=== PATIENT | female | born 1960 | race African-American/Black ===

== ENCOUNTER 2017-08-12 16:10 | Emergency (ER) | payer OTHER ==
--- OUTSIDE RECORDS SUMMARY | 2017-08-12 16:12 | XMS REPORT | Summary of Care ---
:1960 Author Encounter HQ Estherr_geovanna(KERI) [id number] Date(s): 05/20/14 - 05/20/14 [facility] Out[facility] - [place] [id number] [place] [address] [phone] Discharge Disposition: Home Physician Attending: José Jorge MD Vital Signs No data available for this section Problem List No data available for this section Allergies, Adverse Reactions, Alerts No data available for this section Medications No data available for this section Results No data available for this section Immunizations No data available for this section Procedures No data available for this section Social History No data available for this section Assessment and Plan No data available for this section
--- OUTSIDE RECORDS SUMMARY | 2017-08-12 16:12 | XMS REPORT | Continuity of Care Document ---
:1960 Author Organization Interface Problems Problem Status Onset Date Classification Date Comments Source Reported 724.2 - Active 03/06/2014 [facility] Medications Medication Details Route Status Patient Ordering Order Source Instructions Provider Date Allergies, Adverse Reactions, Alerts Substance Category Reaction Severity Reaction Status Date Comments Source type Reported Immunizations Immunization Date Given Site Status Last Updated Comments Source Results Order Name Results Value Reference Date Interpretation Comments Source Range Chest Chest PROCEDURE: CTA CHEST 05/17 - [facility] /2017 - Hospital Embolism Embolism CTA CTA Clinical Indication: Chest pain, shortness of breath, and elevated d-dimer today. Read by: Fran España MD Dictated Date/time: 05/17/17 09:02 Electronically Signed by: Fran España MD 05/17/17 09:20 FINAL REPORT Comparison: None. TECHNIQUE: CTA of the pulmonary arteries was performed following intravenous contrast administration. Multiplanar and 3-D MIP angiographic reconstructions are reviewed. IV CONTRAST: 100 mL Omnipaque 300 DLP: 666 mGy-cm FINDINGS: MEDIASTINUM: 1 cm short axis prevascular and precarinal lymph nodes present. Subcarinal fatty tissues are heterogeneous and thought to be related to additional lymph nodes possibly measuring up to 1.5 c m short axis. Multiple other subcentimeter short axis lymph nodes also seen including AP window, prevascular space, and right paratracheal area. No esophageal abnormality is seen. No tracheal mass identified. HEART: Mild to moderate cardiomegaly. No pericardial effusion. Coronary artery calcifications present. VASCULAR STRUCTURES and PULMONARY ARTERIES: Ascending thoracic aorta measures 3.4 cm diameter. Mild calcified plaque of thoracic aorta is seen. No flow-limiting stenosis or dissection flaps. No filling defects identified in the main pulmonary arteries or proximal segmental branches bilaterally. LUNGS AND PLEURA: Patchy groundglass opacities are seen in both upper lobes. Groundglass attenuation in both lower lobes also seen appearing greatest in the dependent portions with septal thickening. Mi nimal atelectasis or additional infiltrates in the middle lobe and lingula also seen. Trace layering bilateral pleural fluid versus dependent atelectasis. UPPER ABDOMEN: Limited survey of upper abdominal viscera is negative. MUSCULOSKELETAL: No suspicious osseous abnormality identified. IMPRESSION: 1. No CT evidence for acute pulmonary embolus or thoracic aortic dissection. 2. Patchy bilateral upper lobe groundglass opacities suspicious for bilateral pneumonia. 3. More prominent ground glass changes in both lower lobes with septal thickening could represent superimposed pulmonary edema versus additional infectious or inflammatory infiltrates. 4. Few prominent mediastinal lymph nodes could be reactive in nature. SL: [id number] Chest Chest EXAM: XR CHEST SINGLE VIEW 05/17 - [facility] 1view DX 1view DX /2017 - Hospital HISTORY: 57 years year-old Female with chest pain, shortness of breath, hypertension Read by: Polo Benitez MD Dictated Date/time: 05/17/17 08:18 Electronically Signed by: Polo Benitez MD 05/17/17 08:21 FINAL REPORT TECHNIQUE: A single AP view of the chest was obtained. COMPARISON: None FINDINGS: The cardiomediastinal silhouette is mildly prominent. Aortic calcifications present. Haziness in the bilateral lower lungs. No definite pneumothorax is seen. No acute osseous abnormality is evident. IMPRESSION: 1. Haziness in the lower lungs likely related to overlying soft tissues. SL: [id number] Spine Spine EXAM: MRI of the lumbar spine without contrast. 05/20 [facility] lumbar wo lumbar - Clear contrast contrast [facility] CLINICAL HISTORY: 724.2 LUMBAGO Read by: Ozzy Rogers MD Dictated Date/time: 05/20/14 12:32 Electronically Signed by: Ozzy Rogers MD 05/20/14 12:57 FINAL REPORT COMPARISON: None. TECHNIQUE: Utilizing a high field MRI, sagittal T1 and T2, sagittal T2 FS, and axial T1 and T2 sequences were obtained. FINDINGS: There is no lumbar spine fracture or subluxation. The conus and cauda equina nerve roots are normal. The conus terminates at the upper L2 level. Findings by level: T12-L1: The intervertebral disc is normal. The facet joints are normal. No central canal or neural foraminal stenosis. L1-L2: The intervertebral disc is normal. There is minor bilateral facet arthrosis. No central canal or neural foraminal stenosis. L2-L3: There is mild disc desiccation, marginal osteophytosis, and a small Schmorl's node. There is a broad-based left neural foraminal disc protrusion measuring 3 mm AP, which slightly touches the left L2 exiting nerve root. There is minor bilateral facet arthrosis with a trace right facet joint effusion. No central canal or neural foraminal stenosis. L3-L4: There is mild disc desiccation, marginal osteophytosis, and a small Schmorl's node. There is mild bilateral facet arthrosis. No central canal or neural foraminal stenosis. L4-L5: There is mild disc desiccation, marginal osteophytosis, and a small Schmorl's node. There is mild annular bulging measuring up to 3 mm in the neural foraminal regions bilaterally. There is s evere bilateral facet arthrosis. No central canal or neural foraminal stenosis. L5-S1: There is mild disc narrowing, desiccation, marginal osteophytosis. There is a broad-based posterior central to left paracentral disc protrusion measuring 2.5 mm AP, which slightly touches the lef t S1 nerve root sleeve. There is moderate bilateral facet arthrosis. No central canal or neural foraminal stenosis. IMPRESSION: 1. At L2-L3, there is a broad-based left neural foraminal disc protrusion measuring 3 mm AP, which slightly touches the left L2 exiting nerve root. 2. At L4-L5, there is mild annular bulging measuring up to 3 mm in the neural foraminal regions bilaterally. There is severe bilateral facet arthrosis. 3. At L5-S1, there is a broad-based posterior central to left paracentral disc protrusion measuring 2.5 mm AP, which slightly touches the left S1 nerve root sleeve. 4. No central canal or neural foraminal stenosis. Vital Signs Vital Sign Value Date Comments Source Encounters Location Location Encounter Encounter Reason Attending ADM DC Status Source Details Type Number For Provider Date Date Visit [facility] Outpt Diag [id number] José 05/20 05/21 [facility] [place] [facility]2014 [facility] [id number] [place] 08/12 [facility] [id number] [place] 09/23 [facility]2017 [facility] Procedures Procedure Code Date Perfomer Comments Source
[2017-08-12 17:10] LABS: BUN Blood Urea Nitrogen 22 mg/dL (6-20); Bicarbonate 27 mEq/L (21-31); Glucose Level 127 mg/dL (65-120); Potassium 3.5 mEq/L (3.6-5.0); Sodium Level 136 mEq/L (135-145)
[2017-08-12 17:12] LABS: Absolute Lymphocytes (CBC) 2.3 K/uL (0.7-4.9); Absolute Monocytes 0.5 K/uL (0.1-1.3); Absolute Neutrophil 3.2 K/uL (1.8-8.0); Basophils % 0.8 % (0-1.3); Eosinophils % 4.2 % (0-4.4); Hematocrit 35.3 % (36.0-45.0); Lymphocytes % 36.9 % (15.3-44.8); MCH 28.6 pg (27.0-35.0); MCV 87.5 fL (80-100); MPV 7.8 fL (7.6-11.3); Monocytes % 7.3 % (3.3-12.3); RBC Red Blood Cell Count 4.03 M/uL (3.86-4.86)
--- NOTE | 2017-08-12 18:12 | RAD REPORT ---
EXAM DESCRIPTION: CT - Abdomen Pelvis W Contrast - 08/12/2017 5:41 pm CLINICAL HISTORY: Abdominal pain lower abdominal pain and vaginal bleeding for 1 week. Nausea COMPARISON: February 2017 TECHNIQUE: Computed axial tomography of the abdomen pelvis was obtained. 100 cc Isovue-300 was admin istered intravenously. Oral contrast was not requested which limits evaluation of bowel. All CT scans are performed using dose optimization technique as appropriate and may include automated exposure control or mA/KV adjustment according to patient size. FINDINGS: A small cyst is present within liver Spleen, pancreas, adrenal and right kidney appear unremarkable. Small left renal cyst is seen. There is no evidence of diverticulitis. The appendix is normal. A hysterectomy has been performed. A tiny umbilical hernia is present. IMPRESSION: No acute abnormality is displayed.
[2017-08-12] MEDS ORDERED: DIPHENHYDRAMINE 50 MG/ML VIAL ONE (18:40)
[2017-08-12] MEDS ORDERED: METOCLOPRAMIDE 10 MG/2mL INJ ONE (18:40)
[2017-08-12 19:26] LABS: Urine Blood 2+ (NEG); Urine Glucose NEGATIVE (NEG); Urine Protein NEGATIVE (NEG)
[2017-08-12] MEDS ORDERED: ACETAMINOPHEN 500 MG TAB ONE (19:50)
[2017-08-12] MEDS ORDERED: AZITHROMYCIN 250 MG TAB ONE (20:58)
[2017-08-12] MEDS ORDERED: CEFTRIAXONE/SWI 1gm 1 GM/10 ML SYR ONE (20:59)
--- NOTE | 2017-08-12 21:58 | EDPHYS ---
Physician Documentation [facility] Name: Dori Cotter Age: 57 yrs Sex: Female : 1960 Arrival Date: 08/12/2017 Time: 16:16 Bed 7 Private MD: Jeet Emanuel T ED Physician Drew Hou HPI: 08/12 19:31 This 57 yrs old Black Female presents to ER via Ambulatory with complaints of Abdominal jr8 Pain, Vaginal Bleeding. 19:31 The patient presents with abdominal pain in the lower abdomen. Onset: The jr8 symptoms/episode began/occurred acutely, 1 week(s) ago. The symptoms do not radiate. Associated signs and symptoms: Pertinent positives: vaginal bleeding. The symptoms are described as sharp. Modifying factors: The symptoms are alleviated by nothing, the symptoms are aggravated by nothing. Severity of pain: At its worst the pain was moderate in the emergency department the pain has improved mildly. The patient has not experienced similar symptoms in the past. The patient has not recently seen a physician. Historical: - Allergies: 16:22 Bactrim; ph - Home Meds: 16:22 Protonix 40 mg Oral TbEC 1 tab once daily [Active]; aspirin 81 mg Oral TbEC 1 tab once ph daily [Active]; hydrochlorothiazide Oral [Active]; losartan 50 mg Oral tab 1 tab once daily [Active]; Norvasc 10 mg oral tab [Active]; Coreg 25 mg oral tab 1 tab 2 times per day [Active]; - PMHx: 16:22 Diabetes - NIDDM; High Cholesterol; Hypertension; ph - PSHx: 16:22 Hysterectomy; Knee surgery; ph - Immunization history:: Adult Immunizations unknown. - Social history:: Smoking status: Patient/guardian denies using tobacco. - Ebola Screening: : No symptoms or risks identified at this time. ROS: 19:31 Eyes: Negative for injury, pain, redness, and discharge, ENT: Negative for injury, jr8 pain, and discharge, Neck: Negative for injury, pain, and swelling, Cardiovascular: Negative for chest pain, palpitations, and edema, Respiratory: Negative for shortness of breath, cough, wheezing, and pleuritic chest pain, Back: Negative for injury and pain, MS/Extremity: Negative for injury and deformity, Skin: Negative for injury, rash, and discoloration, Neuro: Negative for headache, weakness, numbness, tingling, and seizure. 19:31 Abdomen/GI: Positive for abdominal pain, Negative for nausea, vomiting, and diarrhea, abdominal cramps, abdominal distension, anorexia, dysphagia, hematemesis, black/tarry stool, rectal pain, rectal bleeding, bowel incontinence, flatulence. 19:31 : Positive for vaginal bleeding, Negative for urinary symptoms, vaginal discharge, vaginal itching. Exam: 19:31 Eyes: Pupils equal round and reactive to light, extra-ocular motions intact. Lids and jr8 lashes normal. Conjunctiva and sclera are non-icteric and not injected. Cornea within normal limits. Periorbital areas with no swelling, redness, or edema. ENT: Nares patent. No nasal discharge, no septal abnormalities noted. Tympanic membranes are normal and external auditory canals are clear. Oropharynx with no redness, swelling, or masses, exudates, or evidence of obstruction, uvula midline. Mucous membranes moist. Neck: Trachea midline, no thyromegaly or masses palpated, and no cervical lymphadenopathy. Supple, full range of motion without nuchal rigidity, or vertebral point tenderness. No Meningismus. Cardiovascular: Regular rate and rhythm with a normal S1 and S2. No gallops, murmurs, or rubs. Normal PMI, no JVD. No pulse deficits. Respiratory: Lungs have equal breath sounds bilaterally, clear to auscultation and percussion. No rales, rhonchi or wheezes noted. No increased work of breathing, no retractions or nasal flaring. Back: No spinal tenderness. No costovertebral tenderness. Full range of motion. Skin: Warm, dry with normal turgor. Normal color with no rashes, no lesions, and no evidence of cellulitis. MS/ Extremity: Pulses equal, no cyanosis. Neurovascular intact. Full, normal range of motion. Neuro: Awake and alert, GCS 15, oriented to person, place, time, and situation. Cranial nerves II-XII grossly intact. Motor strength 5/5 in all extremities. Sensory grossly intact. Cerebellar exam normal. Normal gait. 19:31 Abdomen/GI: Inspection: obese Bowel sounds: active, all quadrants, Palpation: soft, in all quadrants, mild abdominal tenderness, in the right lower quadrant and left lower quadrant, mass, is not appreciated, rebound tenderness, is not appreciated, voluntary guarding, is not appreciated, involuntary guarding, is not appreciated, no appreciated organomegaly, Indicators: McBurney's point is not tender, Sewell's sign is negative, Rovsing's sign is negative, Liver: no appreciated palpable abnormalities, tenderness, is not appreciated. 21:58 : Pelvic Exam: External exam: is normal, Speculum exam: scant bleeding, discharge, jr8 white, yellow, a female food production associate was present for the exam, Bladder: is normal. Vital Signs: 16:22 BP 112 / 70; Pulse 72; Resp 18; Temp 97.3; Pulse Ox 100% on R/A; Weight 117.93 kg; ph Height 5 ft. 2 in. (157.48 cm); Pain 5/10; 19:30 BP 120 / 68; Pulse 70; Resp 18; Pulse Ox 98% on R/A; Pain 0/10; ea 20:00 BP 122 / 72; Pulse 72; Resp 18; Pulse Ox 99% on R/A; ea 22:40 BP 128 / 70; Pulse 70; Resp 18; Temp 98(O); Pulse Ox 99% ; Pain 0/10; ea 16:22 Body Mass Index 47.55 (117.93 kg, 157.48 cm) ph MDM: 16:35 Patient medically screened. jr8 21:56 Data reviewed: vital signs, nurses notes, lab test result(s), radiologic studies, CT jr8 scan, and as a result, I will discharge patient. Data interpreted: Pulse oximetry: on room air is 100 %. Interpretation: normal. Counseling: I had a detailed discussion with the patient and/or guardian regarding: the historical points, exam findings, and any diagnostic results supporting the discharge/admit diagnosis, lab results, radiology results, the need for outpatient follow up, an OB/Gyne specialist, to return to the emergency department if symptoms worsen or persist or if there are any questions or concerns that arise at home. 08/12 16:35 Order name: CBC with Diff; Complete Time: 17:27 jr8 08/12 16:35 Order name: Basic Metabolic Panel; Complete Time: 17:27 8 08/12 18:41 Order name: Urine Dipstick--Ancillary (enter results); Complete Time: 19:26 08/12 20:21 Order name: Wet Prep; Complete Time: 21:55 [facility] 08/12 20:21 Order name: GC (GONORR/CHLAMYDIA) Probe [facility] 08/12 16:35 Order name: IV; Complete Time: 17:28 [facility] 08/12 17:08 Order name: CT Abd/Pelvis - W/Contrast; Complete Time: 18:25 [facility] 08/12 19:28 Order name: Pelvic Exam Setup; Complete Time: 20:54 [facility] Administered Medications: 18:42 Drug: Benadryl 25 mg Route: IVP; Infused Over: 2 mins; Site: left antecubital; sv 18:48 Follow up: Response: No adverse reaction sv 18:44 Drug: Reglan 10 mg Route: IVP; Infused Over: 3 mins; Site: left antecubital; sv 18:48 Follow up: Response: No adverse reaction sv 21:02 Drug: Rocephin 1 grams Route: IV; Rate: calculated rate; Site: right antecubital; ea 22:11 Follow up: Response: No adverse reaction; IV Status: Completed infusion ea 21:03 Drug: Zithromax 1 grams Route: PO; ea 22:11 Follow up: Response: No adverse reaction ea 22:28 Drug: Flagyl 2 grams Route: PO; ea 22:30 Follow up: Response: Medication administered at discharge. ea Disposition: 08/12/17 21:57 Discharged to Home. Impression: Trichomoniasis. - Condition is Stable. - Discharge Instructions: Trichomoniasis. - Prescriptions for Doxycycline Hyclate 100 mg Oral Tablet - take 1 tablet by ORAL route every 12 hours; 20 tablet. - Medication Reconciliation Form, Thank You Letter, Antibiotic Education, Prescription Opioid Use form. - Follow up: Private Physician; When: 2 - 3 days; Reason: Recheck today's complaints, Continuance of care, Re-evaluation by your physician. - Problem is new. - Symptoms have improved. Addendum: 08/17/2017 15:26 Co-signature as Attending Physician, Drew Hou MD I agree with the assessment and k dr plan of care. Signatures: Dispatcher [employer] EDIlana Gregory RN RN sv Rittger, Kevin, MD MD kdr Roszak, Josh, PA PA jr8 Elissa Jasso RN RN Crook, Kenya, RN RN ea Corrections: (The following items were deleted from the chart) 08/12 16:53 16:35 Transvaginal Study (Probe)+[email or web address] ordered. [facility] EDMS 22:52 21:57 08/12/2017 21:57 Discharged to Home. Impression: Trichomoniasis. Condition is ea Stable. Forms are Medication Reconciliation Form, Thank You Letter, Antibiotic Education, Prescription Opioid Use. Follow up: Private Physician; When: 2 - 3 days; Reason: Recheck today's complaints, Continuance of care, Re-evaluation by your physician. Problem is new. Symptoms have improved. jr8
--- NOTE | 2017-08-12 21:58 | ER ---
Nurse's Notes [facility] Name: Dori Cotter Age: 57 yrs Sex: Female : 1960 Arrival Date: 08/12/2017 Time: 16:16 Bed 7 Private MD: Jeet Emanuel T Diagnosis: Trichomoniasis Presentation: 08/12 16:18 Presenting complaint: Patient states: " I've been having lower abdominal pain and ph vaginal bleeding for about a week. I haven't had a regular period since the s." Pt reports dilcia LQ and suprapubic pain, also reports nausea, denies V/D or fever. Transition of care: patient was not received from another setting of care. Onset of symptoms was August 12, 2017. Risk Assessment: Do you want to hurt yourself or someone else? Patient reports no desire to harm self or others. Initial Sepsis Screen: Does the patient meet any 2 criteria? No. Patient's initial sepsis screen is negative. Does the patient have a suspected source of infection? No. Patient's initial sepsis screen is negative. Care prior to arrival: None. 16:18 Method Of Arrival: Ambulatory ph 16:18 Acuity: RANDI 3 ph Historical: - Allergies: 16:22 Bactrim; ph - Home Meds: 16:22 Protonix 40 mg Oral TbEC 1 tab once daily [Active]; aspirin 81 mg Oral TbEC 1 tab once ph daily [Active]; hydrochlorothiazide Oral [Active]; losartan 50 mg Oral tab 1 tab once daily [Active]; Norvasc 10 mg oral tab [Active]; Coreg 25 mg oral tab 1 tab 2 times per day [Active]; - PMHx: 16:22 Diabetes - NIDDM; High Cholesterol; Hypertension; ph - PSHx: 16:22 Hysterectomy; Knee surgery; ph - Immunization history:: Adult Immunizations unknown. - Social history:: Smoking status: Patient/guardian denies using tobacco. - Ebola Screening: : No symptoms or risks identified at this time. Screenin:59 Abuse screen: Denies threats or abuse. Denies injuries from another. Nutritional sv screening: No deficits noted. Tuberculosis screening: No symptoms or risk factors identified. Fall Risk None identified. Assessment: 18:30 General: Appears uncomfortable, obese, Behavior is calm, cooperative, appropriate for sv age. Pain: Complains of pain in face Pain currently is 5 out of 10 on a pain scale. Quality of pain is described as throbbing, Is continuous. Neuro: Level of Consciousness is awake, alert, obeys commands, Oriented to person, place, time, situation, Moves all extremities. Full function. Respiratory: Respiratory effort is even, unlabored, Respiratory pattern is regular, symmetrical. GI: Abdomen is obese. : Reports vaginal bleeding that is spotty, Pt reports a light flow earlier today. Derm: Skin is normal. Musculoskeletal: No signs and/or symptoms reported regarding the musculoskeletal system. 19:30 General: Appears uncomfortable, Behavior is calm, cooperative, appropriate for age. ea Pain: Complains of pain in left lower quadrant and right lower quadrant Pain currently is 7 out of 10 on a pain scale. Quality of pain is described as throbbing. Neuro: Level of Consciousness is awake, alert, obeys commands, Oriented to person, place, time, situation. Respiratory: Airway is patent Respiratory effort is even, unlabored, Respiratory pattern is regular, symmetrical. GI: Abdomen is non-distended, obese, Bowel sounds present X 4 quads. : Reports vaginal bleeding that is. Derm: Skin is dry, Skin is normal, Skin temperature is warm. Musculoskeletal: No signs and/or symptoms reported regarding the musculoskeletal system. 20:30 Reassessment: Patient and/or family updated on plan of care and expected duration. Pain ea level reassessed. Patient is alert, oriented x 3, equal unlabored respirations, skin warm/dry/pink. 21:55 Reassessment: Patient and/or family updated on plan of care and expected duration. Pain ea level reassessed. Patient is alert, oriented x 3, equal unlabored respirations, skin warm/dry/pink. 22:39 Reassessment: Patient and/or family updated on plan of care and expected duration. Pain ea level reassessed. Patient is alert, oriented x 3, equal unlabored respirations, skin warm/dry/pink. Discharge instructions given to patient, verbalized the understanding of instructions. Vital Signs: 16:22 BP 112 / 70; Pulse 72; Resp 18; Temp 97.3; Pulse Ox 100% on R/A; Weight 117.93 kg; ph Height 5 ft. 2 in. (157.48 cm); Pain 5/10; 19:30 BP 120 / 68; Pulse 70; Resp 18; Pulse Ox 98% on R/A; Pain 0/10; ea 20:00 BP 122 / 72; Pulse 72; Resp 18; Pulse Ox 99% on R/A; ea 22:40 BP 128 / 70; Pulse 70; Resp 18; Temp 98(O); Pulse Ox 99% ; Pain 0/10; ea 16:22 Body Mass Index 47.55 (117.93 kg, 157.48 cm) ph ED Course: 16:16 Patient arrived in ED. mr 16:16 Jeet Emanuel MD is Private Physician. mr 16:20 Triage completed. ph 16:23 Arm band placed on. ph 16:34 [facility] jr[facility] 16:35 Drew Hou MD is Attending Physician. jr8 16:45 Initial lab(s) drawn, by ED staff, sent to lab. Inserted saline lock: 22 gauge in right sv antecubital area, using aseptic technique. ,using aseptic technique. done by [facility] Blood collected. 17:10 Radiology exam delayed due to lab results not completed at this time. (BUN/Creatinine). sw 17:27 Ilana Hernandes, RN is Primary Nurse. sv 17:[address] via wheelchair. mw3 17:40 CT completed. Patient tolerated procedure well. mw3 17:41 CT Abd/Pelvis - W/Contrast In Process Unspecified. EDMS 17:59 Patient has correct armband on for positive identification. Bed in low position. Call sv light in reach. 19:08 Primary Nurse role handed off by Ilana Hernandes RN sv 20:18 Kenya Crook, PATRICK is Primary Nurse. ea 22:30 No provider procedures requiring assistance completed. ea 22:43 IV discontinued, intact, bleeding controlled, No redness/swelling at site. Pressure ea dressing applied. Administered Medications: 18:42 Drug: Benadryl 25 mg Route: IVP; Infused Over: 2 mins; Site: left antecubital; sv 18:48 Follow up: Response: No adverse reaction sv 18:44 Drug: Reglan 10 mg Route: IVP; Infused Over: 3 mins; Site: left antecubital; sv 18:48 Follow up: Response: No adverse reaction sv 21:02 Drug: Rocephin 1 grams Route: IV; Rate: calculated rate; Site: right antecubital; ea 22:11 Follow up: Response: No adverse reaction; IV Status: Completed infusion ea 21:03 Drug: Zithromax 1 grams Route: PO; ea 22:11 Follow up: Response: No adverse reaction ea 22:28 Drug: Flagyl 2 grams Route: PO; ea 22:30 Follow up: Response: Medication administered at discharge. ea Outcome: 21:57 Discharge ordered by MD. goodrich 22:42 Discharged to home via wheelchair, with family. ea 22:42 Condition: improved 22:42 Discharge instructions given to patient, Instructed on discharge instructions, follow up and referral plans. medication usage, Demonstrated understanding of instructions, follow-up care, medications, Prescriptions given X 1. 22:52 Patient left the ED. ea Signatures: Dispatcher [employer] EDIlana Gregory, Jenae Lyon RN mr Suly, Michael, PA Elissa Means RN RN ph Warren, Shannon sw Antunez, Elena, RN RN ea Willis, Michelle 3
[2017-08-12] MEDS ORDERED: metroNIDAZOLE 500 MG TABLET ONE (22:27)
[2017-08-12 23:48] VITALS: BP 112/70; TEMP 97.3; O2SAT 100
[2017-08-16 15:37] LABS: C.trachomatis RNA,TMA Not Detected (Not Detected)
== END 2017-08-12 22:52 | disposition home or self-care (01) ==
LOC: ER 16:10
DX: A59.9 Trichomoniasis, unspecified (principal); I10 Essential (primary) hypertension; E11.9 Type 2 diabetes mellitus without complications; Z79.82 Long term (current) use of aspirin; Z88.1 Allergy status to other antibiotic agents
CPT/HCPCS: 36415; 74177; 80048; 81003; 85025; 87210; 87490; 87590; 96365; 96375; 99284; J0696; J2765; Q9967

== ENCOUNTER 2018-04-11 13:23 | Emergency (ER) | payer OTHER ==
--- OUTSIDE RECORDS SUMMARY | 2018-04-11 13:27 | XMS REPORT | Continuity of Care Document ---
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 Hypertensive 08/26/2017 [facility] emergency [facility] Hyperlipidemia, 08/26/2017 [facility] Body mass index 08/26/2017 [facility] [id number] , adult Hospital Back pain Active Problem 08/26/2017 [facility] HTN - Hypertension Active Problem 08/26/2017 [facility] Hyperlipidemia Active Problem 08/26/2017 [facility] Morbid obesity Active Problem 08/26/2017 [facility] Neck pain Active Problem 08/26/2017 [facility] Paresthesias Active Problem 08/26/2017 [facility] Medications Medication Details Route Status Patient Ordering Order Source Instructions Provider Date spironolactone 25 25 mg=1 tab, No Longer [facility] mg oral tablet PO, Daily, # Active 2018 Hospital 30 tab, 1 Refill(s), Pharmacy: [facility]/pharmacy #[id number] potassium chloride 20 mEq=1 tab, No Longer [facility] 20 mEq oral tablet, PO, Daily, Active 2018 [facility] extended release Take while you are on Hydrochlorothi azide, # 30 tab, 1 Refill(s), Pharmacy: [facility]/pharmacy #[id number] Hydrochlorothiazide 25 mg=1 tab, Active [facility] 25 MG Oral Tablet PO, Daily, # 2018 Hospital 30 tab, 1 Refill(s), Pharmacy: [facility]acy #[id number] Famotidine 20 MG 20 mg=1 tab, No Longer [facility] Oral Tablet PO, BID, # 60 Active [facility] [Pepcid] tab, 0 Refill(s), Pharmacy: [facility]/pharmacy #[id number] doxycycline hyclate 100 mg=1 cap, No Longer [facility] 100 MG Oral Capsule PO, [id number], # Active 2018 Hospital 10 caplet, 0 Refill(s), Pharmacy: [facility]/pharmacy #[id number] losartan 100 mg 100 mg=1 tab, Active [facility] oral tablet PO, Daily, # 2018 Hospital 30 tab, 1 Refill(s), [id number] carvedilol 25 mg 25 mg=1 tab, Active [facility] oral tablet PO, BID, # 60 2018 Hospital tab, 1 Refill(s), Pharmacy: [facility]/pharmacy #[id number] atorvastatin 10 mg 20 mg=2 tab, Active [facility] oral tablet PO, Bedtime, # 2018 Hospital 30 tab, 1 Refill(s), Pharmacy: [facility]/pharmacy #[id number] amLODIPine 10 mg 10 mg=1 tab, Active [facility] oral tablet PO, Daily, # 2018 Hospital 30 tab, 1 Refill(s), [id number] Coreg 25 mg, 1 tab, No Longer [facility] Route: PO, Active 2017 [facility] Drug form: TAB, BID, Dosing Weight 124.545, kg, Start date: 05/19/17 17:00:00 CDT, Duration: 30 day, Stop date: 06/18/17 9:00:00 CDTNotes: Give with food. (Same As: Coreg) Hydrochlorothiazide 25 mg, 1 tab, No Longer [facility] Route: PO, Active 2017 Hospital Drug form: TAB, Daily, Dosing Weight 124.545, kg, Start date: 05/19/17 9:00:00 CDT, Duration: 30 day, Stop date: 06/17/17 9:00:00 CDTNotes: (Same as: Hydrodiuril) With food. Aldactone 25 mg, 1 tab, No Longer [facility] Route: PO, Active 2017 Hospital Drug form: TAB, Daily, Dosing Weight 124.545, kg, Start date: 05/19/17 9:00:00 CDT, Duration: 30 day, Stop date: 06/17/17 9:00:00 CDTNotes: (Same As: Aldactone) Norvasc 10 mg, 1 tab, No Longer [facility] Route: PO, Active [facility] Drug form: TAB, Daily, Dosing Weight 124.545, kg, Start date: 05/19/17 9:00:00 CDT, Duration: 30 day, Stop date: 06/17/17 9:00:00 CDTNotes: (Same as: Norvasc) Potassium Chloride 20 mEq, 1 tab, No Longer [facility] Route: PO, Active [address] [place] [address] Drug form: ERTAB, Daily, Dosing Weight 124.545, kg, Start date: 05/19/17 9:00:00 CDT, Duration: 30 day, Stop date: 06/17/17 9:00:00 CDTNotes: (Same as: K-Dur 20) "Do Not Crush" With food and full glass of water Coreg 12.5 mg, 1 No Longer [facility] tab, Route: Active [address] [place] [address] PO, Drug form: TAB, BID, Dosing Weight 124.545, kg, Start date: 05/18/17 17:00:00 CDT, Duration: 30 day, Stop date: 06/17/17 9:00:00 CDTNotes: Give with food. (Same As: Coreg) Potassium Chloride 20 mEq, Route: Inactive [facility] PO, Drug form: [address] [place] [address] ERTAB, BID, Dosing Weight 124.545, kg, Start date: 05/18/17 17:00:00 CDT, Duration: 30 day, Stop date: 06/17/17 9:00:00 CDT sodium phosphate 15 mmol, 5 mL, No Longer [facility] Route: IVPB, Active [facility] PRN, Dosing Weight 124.545, kg, PRN Abnormal Lab Result, For NON-ICU Patients Only., Start date: 05/18/17 15:07:00 CDT, Duration: 30 day, Stop date: 06/17/17 15:06:00 CDT potassium phosphate 30 mmol, 10 No Longer [facility] mL, Route: Active [facility] IVPB, PRN, Dosing Weight 124.545, kg, PRN Abnormal Lab Result, For NON-ICU Patients Only., Start date: 05/18/17 15:07:00 CDT, Duration: 30 day, Stop date: 06/17/17 15:06:00 CDTNotes: (Same as: K Phosphate.) 1 mMol phoshate has 1.47 mEq potassium Infuse over 4 hours Magnesium Sulfate 1 gm, 100 mL, No Longer [facility] Route: IVPB, Active 2017 [facility] Drug form: INJ, PRN, Dosing Weight 124.545, kg, PRN Abnormal Lab Result, For NON-ICU Patients Only., Start date: 05/18/17 15:07:00 CDT, Duration: 30 day, Stop date: 06/17/17 15:06:00 CDTNotes: WASTE: F/P - Sink; E - Municipal Trash Bin Potassium Chloride 20 mEq, 1 tab, No Longer [facility] Route: PO, Active 2017 [facility] Drug form: ERTAB, PRN, Dosing Weight 124.545, kg, PRN Abnormal Lab Result, For NON-ICU Patients Only, Start date: 05/18/17 15:07:00 CDT, Duration: 30 day, Stop date: 06/17/17 15:06:00 CDTNotes: (Same as: K-Dur 20) "Do Not Crush" With food and full glass of water potassium 2 pkt, Route: No Longer [facility] phosphate-sodium PO, Drug Form: Active 2017 [facility] phosphate 250 PDR/REC, mg-280 mg-160 mg Dosing Weight oral powder for 124.545, kg, reconstitution PRN, PRN Abnormal Lab Result, For NON-ICU Patients Only, Start date: 05/18/17 15:07:00 CDT, Duration: 30 day, Stop date: 06/17/17 15:06:00 CDTNotes: (Same as: Phos-NaK) Each 1.5 gm pkt has 250mg phosphorous. Mix w/2.5oz water and stir. Calcium Gluconate 3 gm, 30 mL, No Longer [facility] Route: IVPB, Active 2017 [facility] Drug form: INJ, PRN, Dosing Weight 124.545, kg, PRN Abnormal Lab Result, For NON-ICU Patients Only., Start date: 05/18/17 15:07:00 CDT, Duration: 30 day, Stop date: 06/17/17 15:06:00 CDTNotes: WASTE: F/P - Sink; E - [employer] Trash Bin Magnesium Oxide 800 mg, 2 tab, No Longer [facility] Route: PO, Active 2017 [facility] Drug form: TAB, PRN, Dosing Weight 124.545, kg, PRN Abnormal Lab Result, For NON-ICU Patients Only., Start date: 05/18/17 15:07:00 CDT, Duration: 30 day, Stop date: 06/17/17 15:06:00 CDTNotes: (Same as: Mag-Ox 400) Magnesium oxide [id number] elemental magnesium Dose=____mg magnesium oxide (___mg elemental magnesium) Rocephin 1 gm, Route: No Longer [facility] IV, [id number], Active 2017 [facility] Dosing Weight 124.545, kg, Start date: 05/18/17 11:00:00 CDT, Duration: 30 day, Stop date: 06/16/17 11:00:00 CDT, ABX Indication: Other (specify in Comments)Notes : (Same As: Rocephin). Use with 100 mL NS and infuse over 30 min MEDICATION WASTE Product Size: 1000 mg Product Wasted: _0__ mg Clonidine 0.1 mg, 1 tab, No Longer [facility] Hydrochloride 0.1 Route: PO, Active 2017 Hospital MG Oral Tablet Drug form: TAB, BID, Dosing Weight 124.545, kg, PRN Hypertension, Start date: 05/18/17 10:47:00 CDT, Duration: 30 day, Stop date: 06/17/17 10:46:00 CDTNotes: (Same As: Catapres) amLODIPine 5 mg, 1 tab, Inactive [facility] Route: PO, 2017 Hospital Drug form: TAB, ONCE, Start date: 05/18/17 10:05:00 CDT, Stop date: 05/18/17 10:05:00 CDTNotes: (Same as: Norvasc) multivitamin 1 tab, Route: No Longer [facility] PO, Drug Form: Active 2018 Hospital TAB, Dosing Weight 124.545, kg, Daily, Start date: 05/18/17 9:00:00 CDT, Duration: 30 day, Stop date: 06/16/17 9:00:00 CDTNotes: (Same as:Thera) WASTE: F/P - Black; E - Municipal Trash Bin Take with food. Losartan 100 mg, 1 tab, No Longer [facility] Route: PO, Active 2018 Hospital Drug form: TAB, Daily, Dosing Weight 124.545, kg, Start date: 05/18/17 9:00:00 CDT, Stop date: 06/16/17 9:00:00 CDTNotes: (Same as: Cozaar) Glucosamine 1,500 mg, No Longer [facility] Route: PO, Active 2018 [facility] Daily, Dosing Weight 124.545, kg, Start date: 05/18/17 9:00:00 CDT, Duration: 30 day, Stop date: 06/16/17 9:00:00 CDT Norvasc 5 mg, 1 tab, Inactive [facility] Route: PO, 2018 Hospital Drug form: TAB, Daily, Dosing Weight 124.545, kg, Start date: 05/18/17 9:00:00 CDT, Duration: 30 day, Stop date: 06/16/17 9:00:00 CDTNotes: (Same as: Norvasc) Doxycycline 100 mg, 1 cap, No Longer [facility] Route: PO, Active [address] [place] [address] Drug form: CAP, [id number], Dosing Weight 124.545, kg, Start date: 05/17/17 23:00:00 CDT, Duration: 7 day, Stop date: 05/24/17 11:00:00 CDTNotes: (Same as: Vibramycin) No milk/antacids/ iron. Coreg 6.25 mg, 1 No Longer [facility] tab, Route: Active 2018 Hospital PO, Drug form: TAB, BID, Dosing Weight 124.545, kg, Start date: 05/17/17 21:00:00 CDT, Stop date: 06/16/17 9:00:00 CDTNotes: Give with food. (Same As: Coreg) Saline Flush 0.9% 10 ml, Route: No Longer [facility] IVP, Drug Active 2017 Hospital Form: INJ, Dosing Weight 124.545, kg, Q12H, Start date: 05/17/17 21:00:00 CDT, Duration: 30 day, Stop date: 06/16/17 9:00:00 CDTNotes: (Same as: BD Posiflush) atorvastatin 10 mg, 1 tab, No Longer [facility] Route: PO, Active 2018 Hospital Drug form: TAB, Bedtime, Dosing Weight 124.545, kg, Start date: 05/17/17 21:00:00 CDT, Duration: 30 day, Stop date: 06/15/17 21:00:00 CDTNotes: (Same As: Lipitor) Doxycycline 100 mg, Route: Inactive [facility] IVPB, BID, 2018 Hospital Dosing Weight 124.545, kg, Start date: 05/17/17 21:00:00 CDT, Duration: 30 day, Stop date: 06/16/17 9:00:00 CDTNotes: (Same as: Vibramycin) Saline Flush 0.9% 10 ml, Route: No Longer [facility] IVP, Drug Active 2017 Hospital Form: INJ, Dosing Weight 124.545, kg, PRN, PRN Line Flush, Start date: 05/17/17 18:50:00 CDT, Duration: 30 day, Stop date: 06/16/17 18:49:00 CDTNotes: (Same as: BD Posiflush) Nystatin 100 UNT/MG 1 appl, Route: No Longer [facility] Topical Powder TOP, PRN, Drug Active 2017 Hospital form: PWDR, PRN For Fungal Prophylaxis, Start date: 05/17/17 18:50:00 CDT, Duration: 30 day, Stop date: 06/16/17 18:49:00 CDTNotes: (Same as:Mycostatin, Nilstat) For external use only. sodium phosphate 30 mmol, 10 No Longer [facility] mL, Route: Active 2018 [facility] IVPB, PRN, Dosing Weight 124.545, kg, PRN Abnormal Lab Result, Start date: 05/17/17 18:50:00 CDT, Duration: 30 day, Stop date: 06/16/17 18:49:00 CDT, FOR ICU USE ONLY Potassium Chloride 10 mEq, 100 No Longer [facility] mL, Route: Active 2018 [facility] IVPB, Drug form: INJ, PRN, Dosing Weight 124.545, kg, PRN Abnormal Lab Result, Via peripheral line, Start date: 05/17/17 18:50:00 CDT, Duration: 30 day, Stop date: 06/16/17 18:49:00 CDT, FOR ICU USE ONLYNotes: Infuse at a rate of 10 mEq/hr. (Same as: KCL) potassium phosphate 45 mmol, 15 No Longer [facility] mL, Route: Active 2018 Hospital IVPB, PRN, Dosing Weight 124.545, kg, PRN Abnormal Lab Result, Start date: 05/17/17 18:50:00 CDT, Duration: 30 day, Stop date: 06/16/17 18:49:00 CDT, FOR ICU USE ONLYNotes: (Same as: K Phosphate.) 1 mMol phoshate has 1.47 mEq potassium Infuse over 4 hours potassium 2 pkt, Route: No Longer [facility] phosphate-sodium PO, Drug Form: Active 2018 [facility] phosphate 250 PDR/REC, mg-280 mg-160 mg Dosing Weight oral powder for 124.545, kg, reconstitution PRN, PRN Abnormal Lab Result, FOR ICU USE ONLY, Start date: 05/17/17 18:50:00 CDT, Duration: 30 day, Stop date: 06/16/17 18:49:00 CDTNotes: (Same as: Phos-NaK) Each 1.5 gm pkt has 250mg phosphorous. Mix w/2.5oz water and stir. Calcium Gluconate 1 gm, 10 mL, No Longer [facility] Route: IVPB, Active 2018 Hospital PRN, Dosing Weight 124.545, kg, PRN Abnormal Lab Result, Start date: 05/17/17 18:50:00 CDT, Duration: 30 day, Stop date: 06/16/17 18:49:00 CDT, FOR ICU USE ONLYNotes: WASTE: F/P - Sink; E - Municipal Trash Bin Magnesium Sulfate 2 gm, 50 mL, No Longer [facility] Route: IVPB, 2017 [facility] Drug form: INJ, PRN, Dosing Weight 124.545, kg, PRN Abnormal Lab Result, Start date: 05/17/17 18:50:00 CDT, Duration: 30 day, Stop date: 06/16/17 18:49:00 CDT, FOR ICU USE ONLYNotes: WASTE: F/P - Sink; E - Municipal Trash Bin Magnesium Oxide 800 mg, 2 tab, No Longer [facility] Route: PO, 2017 [facility] Drug form: TAB, PRN, Dosing Weight 124.545, kg, PRN Abnormal Lab Result, FOR ICU USE ONLY, Start date: 05/17/17 18:50:00 CDT, Duration: 30 day, Stop date: 06/16/17 18:49:00 CDTNotes: (Same as: Mag-Ox 400) Magnesium oxide [id number] elemental magnesium Dose=____mg magnesium oxide (___mg elemental magnesium) Calcium Carbonate 1,000 mg, 2 No Longer [facility] 500 MG Chewable tab, Route: Active 2017 [facility] Tablet PO, Drug form: CHEWTAB, PRN, Dosing Weight 124.545, kg, PRN Abnormal Lab Result, FOR ICU USE ONLY, Start date: 05/17/17 18:50:00 CDT, Duration: 30 day, Stop date: 06/16/17 18:49:00 CDTNotes: (Same As: Tums) Calcium Carbonate 500 kl=263 mg elemental calcium Dose= mg calcium carbonate ( mg elemental calcium) Singulair 10 mg, 1 tab, No Longer [facility] Route: PO, 2017 [facility] Drug form: TAB, QPM, Dosing Weight 124.545, kg, Start date: 05/17/17 17:00:00 CDT, Duration: 30 day, Stop date: 06/15/17 17:00:00 CDTNotes: (Same as:Singulair) Famotidine 20 MG 20 mg, 1 tab, No Longer [facility] Oral Tablet Route: PO, Active 2017 [facility] [Pepcid] Drug form: TAB, BID, Dosing Weight 124.545, kg, Start date: 05/17/17 17:00:00 CDT, Duration: 30 day, Stop date: 06/16/17 9:00:00 CDTNotes: (Same as: Pepcid) Protonix 40 mg, 1 tab, Inactive [facility] Route: PO, 2018 Hospital Drug form: ECTAB, Daily, Dosing Weight 124.545, kg, Start date: 05/17/17 16:30:00 CDT, Duration: 30 day, Stop date: 06/16/17 9:00:00 CDTNotes: Tablet should not be chewed or crushed. (Same as: Protonix) Lovenox 40 mg, 0.4 mL, No Longer [facility] Route: SUB-Q, Active 2017 Hospital Drug form: INJ, [id number], Start date: 05/17/17 16:00:00 CDT, Duration: 30 day, Stop date: 06/15/17 16:00:00 CDTNotes: (Same as: Lovenox) Lovenox 40 mg, Route: Inactive [facility] SUB-Q, Drug 2018 Hospital form: INJ, Daily, Dosing Weight 124.545, kg, Priority: STAT, Start date: 05/17/17 15:38:00 CDT, Duration: 30 day, Stop date: 06/16/17 9:00:00 CDT morphine Sulfate 6 mg, 3 mL, No Longer [facility] Route: PO, Active 2017 [facility] Drug form: SOLN, Q4H, PRN Pain Score 7-10, Start date: 05/17/17 13:00:00 CDT, Duration: 30 day, Stop date: 06/16/17 12:59:00 CDTNotes: (Same as:MORPhine Sulfate) Morphine 2 mg, Route: Inactive [facility] IVP, Q4H, 2018 Hospital Dosing Weight 124.545, kg, PRN Pain Score 7-10, Start date: 05/17/17 11:59:00 CDT, Duration: 30 day, Stop date: 06/16/17 11:58:00 CDT Acetaminophen 650 mg, 2 tab, No Longer [facility] Route: PO, Active 2018 Hospital Drug form: TAB, Q4H, Dosing Weight 124.545, kg, PRN Pain 1-3/Temp > 100.4 F, Start date: 05/17/17 11:59:00 CDT, Duration: 30 day, Stop date: 06/16/17 11:58:00 CDTNotes: Do not exceed 4 gm/day. (Same as: Tylenol) Ondansetron 4 mg, 2 mL, No Longer [facility] Route: IVP, Active 2017 Hospital Drug form: INJ, Q6H, Dosing Weight 124.545, kg, PRN Nausea & Vomiting, Start date: 05/17/17 11:59:00 CDT, Duration: 30 day, Stop date: 06/16/17 11:58:00 CDTNotes: (Same as: Zofran) MEDICATION WASTE Product Size: 4 mg Product Wasted: 0 mg methylPREDNISolone 40 mg, 1 mL, Inactive [facility] SODium SUCCinate Route: IVP, 2017 Hospital Drug form: INJ, Q8H, Dosing Weight 124.545, kg, Priority: STAT, Start date: 05/17/17 11:58:00 CDT, Duration: 30 day, Stop date: 06/16/17 4:00:00 CDTNotes: (Same as:Solu-MEDROL , A-Methapred) Doxycycline 100 mg, Route: Inactive [facility] IV, BID, 2018 [facility] Dosing Weight 124.545, kg, Priority: NOW, Start date: 05/17/17 11:58:00 CDT, Duration: 30 day, Stop date: 06/16/17 9:00:00 CDT Aspirin 325 MG 325 mg, 1 tab, No Longer [facility] Enteric Coated Route: PO, Active 2017 Hospital Tablet Drug form: ECTAB, Daily, Dosing Weight 124.545, kg, Priority: STAT, Start date: 05/17/17 11:58:00 CDT, Duration: 30 day, Stop date: 06/16/17 9:00:00 CDTNotes: (Do Not Crush) Do not crush or chew. Lasix 40 mg, 4 mL, No Longer [facility] Route: IV, Active 2017 [facility] Drug form: INJ, Daily, Dosing Weight 124.545, kg, Priority: STAT, Start date: 05/17/17 11:55:00 CDT, Duration: 30 day, Stop date: 06/16/17 9:00:00 CDTNotes: (Same as: Lasix) MEDICATION WASTE Product Size: 40 mg Product Wasted: 0 mg Protonix 40 mg, PO, Active [facility] Daily 2018 [facility] carvedilol 3.13 MG 3.125 mg=1 No Longer [facility] Oral Tablet [Coreg] tab, PO, BID Active 2018 Hospital Losartan 50 mg, PO, No Longer [facility] Daily Active 2018 [facility] Aspirin 81 mg, PO, No Longer [facility] Daily Active 2018 [facility] multivitamin 1 tab, PO, Active [facility] Daily, 2018 Hospital Nonformulary "More Vitamin" brand per patient Glucosamine 1,500 mg, PO, No Longer [facility] Daily Active 2018 Hospital Norvasc 5 mg, PO, No Longer [facility] Daily Active 2018 [facility] Singulair 10 mg, PO, No Longer [facility] Daily Active 2018 Hospital atorvastatin 10 mg, PO, No Longer [facility] Daily Active 2018 [facility] Morphine 4 mg, 1 mL, Inactive [facility] Route: IVP, [address] [place] [address] Drug form: SOLN, ONCE, Dosing Weight 124.545, kg, Priority: STAT, Start date: 05/17/17 10:39:00 CDT, Stop date: 05/17/17 10:39:00 CDTNotes: (Same as:MORPhine Sulfate) Tylenol 1,000 mg, 2 Inactive [facility] tab, Route: 2018 Hospital PO, Drug form: TAB, ONCE, Dosing Weight 124.545, kg, Start date: 05/17/17 10:36:00 CDT, Stop date: 05/17/17 10:36:00 CDTNotes: Max acetaminophen 4000 mg/day (4 gm/day). (Same as: Tylenol Extra Strength) cefTRIAXone + 1 gm, Route: Inactive [facility] sterile water 10 mL IV, ONCE, [facility] Priority: STAT, Start date: 05/17/17 10:05:00 CDT, Stop date: 05/17/17 10:05:00 CDT, ABX Indication: PneumoniaNotes : (Same As: Rocephin). Use with 100 mL NS and infuse over 30 min MEDICATION WASTE Product Size: 1000 mg Product Wasted: ___ mg Doxycycline 100 mg, Route: Inactive [facility] IV, ONCE, 2018 [facility] Dosing Weight 124.545, kg, Start date: 05/17/17 9:58:00 CDT, Stop date: 05/17/17 9:58:00 CDTNotes: (Same as: Vibramycin) Rocephin 1 gm, Route: Inactive [facility] IVPB, Drug 2018 Hospital form: PDR/INJ, ONCE, Dosing Weight 124.545, kg, Priority: STAT, Start date: 05/17/17 9:58:00 CDT, Stop date: 05/17/17 9:58:00 CDT, ABX Indication: Pneumonia Nicardipine 40 mg, 200 mL, No Longer [facility] Rate: Titrate Active [address] [place] [address] per [facility] protocol, Start Dose: 5 mg/hr, Titration: 2.5 mg/hr every 15 minutes, Goal(s): Titrate for SBP 160-180 next 24 hours, Max Dose: 15 mg/hr, Route: IV, Dosing Weight 124.545 kg, Total Volume: 200, Start date: 05/17/17...Not es: Same as: Cardene Concentration: (0.2 mg /1 ml ) BD Normal Saline 25 mL, Route: No Longer [facility] Flush IV, Drug Form: Active [address] [place] [address] INJ, PRN, PRN Line Flush, Start date: 05/17/17 8:11:00 CDT, Duration: 30 day, Stop date: 06/16/17 8:10:00 CDTNotes: (Same as: BD Posiflush) Labetalol 20 mg, 4 mL, Inactive [facility] Route: IVP, [address] [place] [address] Drug form: INJ, ONCE, Dosing Weight 124.545, kg, Priority: STAT, Start date: 05/17/17 7:57:00 CDT, Stop date: 05/17/17 7:57:00 CDTNotes: (Same as: Normodyne, Trandate) Push over 2 minutes Give bolus over 2-3 minutes. Allergies, Adverse Reactions, Alerts Substance Category Reaction Severity Reaction Status Date Comments Source type Reported Bactrim<sup Assertion Drug rash, Drug Active Occurred [facility] >1</sup> NOS allergy February, rash to abdomen Immunizations Immunization Date Given Site Status Last Updated Comments Source Results Order Name Results Value Reference Date Interpretation Comments Source Range CARDIAC CK MB Index 0.9 0.0 - 2.5 05/20 [facility] CARDIAC Troponin-I null 0.00 - 05/20 [facility] ENZYMES 0.40 [facility] CARDIAC CK MB 0.6 ng/mL 0.5 - 3.6 05/20 [facility] CARDIAC Total CK 64 unit/L 12 - 191 05/20 [facility] CHEM PANEL A/G Ratio 0.7 0.7 - 1.6 05/18 [facility] CHEM PANEL B/C Ratio 23 6 - 25 05/18 [facility] CHEM PANEL Globulin 4.4 g/dL 2.7 - 4.2 05/18 [facility] CHEM PANEL AGAP 13.5 meq/L 10.0 - 05/18 20.0 [facility] CHEM PANEL eGFR 112 05/18 Result Comment: The eGFR is calculated using the CKD-EPI formula. In most young, healthy individuals the eGFR will be >90 mL/ min/1.73m2. The eGFR declines with age. An eGFR of 60-89 may be normal in mL/min/1.7 some populations, particularly the elderly, for whom the CKD-EPI formula has not been extensively validated. Use of the eGFR is not recommended in the following populations: Hospital 3m2 Individuals with unstable creatinine concentrations, including patients and those with serious co-morbid conditions. Patients with extremes in muscle mass or diet. The data above are obtained from the National Kidney Disease Education Program (NKDEP) which additionally recommends that when the eGFR is used in patients with extremes of body mass index for purposes of drug dosing, the eGFR should be multiplied by the estimated BMI. CHEM PANEL Alk Phos 103 unit/L 39 - 136 05/18 [facility] CHEM PANEL Bili Total 0.3 mg/dL 0.2 - 1.3 05/18 Hospital CHEM PANEL Albumin Lvl 3.1 g/dL 3.5 - 5.0 05/18 Hospital CHEM PANEL AST 14 unit/L 0 - 37 05/18 Hospital CHEM PANEL ALT 34 unit/L 0 - 65 05/18 Hospital CHEM PANEL Total 7.5 g/dL 6.4 - 8.4 05/18 Hospital CHEM PANEL Calcium Lvl 8.7 mg/dL 8.5 - 10.5 05/18 Hospital CHEM PANEL CO2 27 meq/L 24 - 32 05/18 Hospital CHEM PANEL Chloride Lvl 105 meq/L 95 - 109 05/18 Hospital CHEM PANEL Potassium 3.5 meq/L 3.5 - 5.1 05/18 [facility] CHEM PANEL Sodium Lvl 142 meq/L 135 - 145 05/18 Hospital CHEM PANEL Creatinine 0.69 mg/dL 0.50 - 05/18 [facility] Lvl 1.40 [facility] CHEM PANEL BUN 16 mg/dL 7 - 22 05/18 Hospital CHEM PANEL Glucose Lvl 132 mg/dL 70 - 99 05/18 Hospital HEMATOLOGY Hct 38.1 % 36.0 - 05/18 [facility] 48.0 [facility] HEMATOLOGY MCV 86.0 fL 80.0 - 05/18 [facility] 98.0 [facility] HEMATOLOGY Platelet 361 K/CMM 133 - 450 05/18 Hospital HEMATOLOGY MPV 7.7 fL 7.4 - 10.4 05/18 Hospital HEMATOLOGY MCH 28.3 pg 27.0 - 05/18 [facility] 31.0 [facility] HEMATOLOGY RDW 15.6 % 11.5 - 05/18 [facility] 14.5 Hospital HEMATOLOGY MCHC 32.9 g/dL 32.0 - 05/18 [facility] 36.0 [facility] HEMATOLOGY WBC 10.9 K/CMM 3.7 - 10.4 05/18 [facility] HEMATOLOGY Hgb 12.5 g/dL 12.0 - 05/18 [facility] 16.0 [facility] HEMATOLOGY RBC 4.42 M/CMM 4.20 - 05/18 [facility] 5.40 [facility] HEMATOLOGY Segs 80.0 % 45.0 - 05/18 [facility] 75.0 Hospital HEMATOLOGY Monocytes 6.1 % 2.0 - 12.0 05/18 [facility] /2017 [facility] HEMATOLOGY Basophils 0.1 % 0.0 - 1.0 05/18 [facility] /2017 [facility] HEMATOLOGY Lymphocytes 13.8 % 20.0 - 05/18 [facility] 40.0 [facility] HEMATOLOGY Segs-Bands # 8.7 K/CMM 1.5 - 8.1 05/18 [facility] HEMATOLOGY Lymphocytes 1.5 K/CMM 1.0 - 5.5 05/18 [facility] # /2017 [facility] HEMATOLOGY Monocytes # 0.7 K/CMM 0.0 - 0.8 05/18 [facility] BACTERIAL - MRSA by PCR Negative 05/18 [facility] (05/17/17 7:17 PM) BACTERIAL - Source Strep Urine 05/17 [facility] *NA* (05/17/17 5:44 PM) BACTERIAL - Strep Negative Negative 05/17 [facility] SEROLOGY pneumoniae /2017 Hospital Ag (05/17/17 5:44 PM) CARDIAC Troponin-I 0.03 ng/mL 0.00 - 05/17 [facility] ENZYMES 0.40 Hospital CARDIAC Total CK 262 unit/L 12 - 191 05/17 [facility] CARDIAC CK MB 2.9 ng/mL 0.5 - 3.6 05/17 [facility] CARDIAC Troponin-I 0.04 ng/mL 0.00 - 05/17 [facility] ENZYMES 0.40 Hospital CARDIAC CK MB 3.0 ng/mL 0.5 - 3.6 05/17 [facility] CARDIAC Total CK 255 unit/L 12 - 191 05/17 [facility] CHEM PANEL Magnesium 2.0 mg/dL 1.8 - 2.4 05/17 [facility] Lvl /2017 [facility] CHEM PANEL Procalcitoni <0.05 0.00 - 05/17 [facility] n Lvl ng/mL 0.10 Hospital VIRAL - Influ A Negative Negative 05/17 [facility] SEROLOGY /2017 Hospital (05/17/17 11:04 AM) VIRAL - Influ B Negative Negative 05/17 [facility] /2017 [facility] (05/17/17 11:04 AM) CARDIAC BNP 224 pg/mL <=100 05/17 [facility] pg/mL [facility] CHEM PANEL Lipase Lvl 172 unit/L 73 - 393 05/17 Hospital CHEM PANEL Magnesium 2.0 mg/dL 1.8 - 2.4 05/17 [facility] Lvl Hospital CHEM PANEL Globulin 4.3 g/dL 2.7 - 4.2 05/17 [facility] CHEM PANEL A/G Ratio 0.7 0.7 - 1.6 05/17 [facility] CHEM PANEL AGAP 12.5 meq/L 10.0 - 05/17 [facility] 20.0 [facility] CHEM PANEL B/C Ratio 18 6 - 25 05/17 Hospital CHEM PANEL eGFR 110 05/17 Result Comment: The eGFR is calculated using the CKD-EPI formula. In most young, healthy individuals the eGFR will be >90 mL/ min/1.73m2. The eGFR declines with age. An eGFR of 60-89 may be normal in mL/min/1.7 some populations, particularly the elderly, for whom the CKD-EPI formula has not been extensively validated. Use of the eGFR is not recommended in the following populations: [address] Individuals with unstable creatinine concentrations, including patients and those with serious co-morbid conditions. Patients with extremes in muscle mass or diet. The data above are obtained from the National Kidney Disease Education Program (NKDEP) which additionally recommends that when the eGFR is used in patients with extremes of body mass index for purposes of drug dosing, the eGFR should be multiplied by the estimated BMI. CHEM PANEL Bili Total 0.3 mg/dL 0.2 - 1.3 05/17 [facility] CHEM PANEL Total 7.4 g/dL 6.4 - 8.4 05/17 Hospital CHEM PANEL ALT 44 unit/L 0 - 65 05/17 Hospital CHEM PANEL Albumin Lvl 3.1 g/dL 3.5 - 5.0 05/17 [facility] CHEM PANEL Alk Phos 116 unit/L 39 - 136 05/17 [facility] CHEM PANEL AST 42 unit/L 0 - 37 05/17 [facility] CHE[facility] PANEL CO2 28 meq/L 24 - 32 05/17 [facility] CHEM PANEL Calcium Lvl 8.5 mg/dL 8.5 - 10.5 05/17 [facility] CHEM PANEL Potassium 3.5 meq/L 3.5 - 5.1 05/17 [facility] CHEM PANEL Sodium Lvl 144 meq/L 135 - 145 05/17 [facility] CHEM PANEL Chloride Lvl 107 meq/L 95 - 109 05/17 [facility] CHEM PANEL Creatinine 0.71 mg/dL 0.50 - 05/17 [facility] 1.40 [facility] CHEM PANEL BUN 13 mg/dL 7 - 22 05/17 [facility] CHEM PANEL Glucose Lvl 111 mg/dL 70 - 99 05/17 [facility] HEMATOLOGY D-Dimer 1.19 ug/mL 05/17 [facility] HEMATOLOGY PTT 25.2 s 22.9 - 05/17 [facility] 35.8 [facility] HEMATOLOGY INR 0.96 0.85 - 05/17 [facility] 1.17 [facility] HEMATOLOGY PT 12.8 s 12.0 - 05/17 [facility] 14.7 [facility] HEMATOLOGY Hgb 12.7 g/dL 12.0 - 05/17 [facility] 16.0 [facility] HEMATOLOGY Hct 39.3 % 36.0 - 05/17 [facility] 48.0 [facility] HEMATOLOGY MCV 85.8 fL 80.0 - 05/17 [facility] 98.0 [facility] HEMATOLOGY WBC 7.8 K/CMM 3.7 - 10.4 05/17 Hospital HEMATOLOGY RBC 4.57 M/CMM 4.20 - 05/17 [facility] 5.40 [facility] HEMATOLOGY MCHC 32.3 g/dL 32.0 - 05/17 [facility] 36.0 [facility] HEMATOLOGY RDW 16.0 % 11.5 - 05/17 [facility] 14.5 [facility] HEMATOLOGY MCH 27.7 pg 27.0 - 05/17 [facility] 31.0 [facility] HEMATOLOGY MPV 7.8 fL 7.4 - 10.4 05/17 [facility] HEMATOLOGY Platelet 356 K/CMM 133 - 450 05/17 [facility] /2017 [facility] HEMATOLOGY Segs 67.3 % 45.0 - 05/17 [facility] 75.0 [facility] HEMATOLOGY Basophils 0.4 % 0.0 - 1.0 05/17 [facility] HEMATOLOGY Eosinophils 2.1 % 0.0 - 4.0 05/17 [facility] HEMATOLOGY Lymphocytes 23.8 % 20.0 - 05/17 [facility] 40.0 [facility] HEMATOLOGY Monocytes 6.4 % 2.0 - 12.0 05/17 [facility] HEMATOLOGY Monocytes # 0.5 K/CMM 0.0 - 0.8 05/17 [facility] HEMATOLOGY Eosinophils 0.2 K/CMM 0.0 - 0.5 05/17 [facility] # [facility] HEMATOLOGY Segs-Bands # 5.2 K/CMM 1.5 - 8.1 05/17 [facility] HEMATOLOGY Lymphocytes 1.9 K/CMM 1.0 - 5.5 05/17 [facility] # [facility] Chest Chest PROCEDURE: CTA CHEST 05/17 - [facility]monary - Hospital Embolism Embolism CTA CTA Clinical [...] nodes could be reactive in nature. SL: [id number] Chest 1view Chest 1view EXAM: XR CHEST SINGLE VIEW 05/17 - [facility] DX DX /2018 - Hospital HISTORY: 57 years year-old Female [...] likely related to overlying soft tissues. SL: [id number] Spine Spine lumbar EXAM: MRI of the lumbar spine without contrast. 05/20 - [facility] lumbar wo wo contrast /2014 - Clear contrast MRI [facility] CLINICAL HISTORY: 724.2 LUMBAGO Read by: [...] Signs Vital Sign Value Date Comments Source Respitory Rate 20 05/20/2017 [facility] Systolic (mm Hg) 142 05/20/2017 [facility] Diastolic (mm Hg) 92 05/20/2017 [facility] Respitory Rate 20 05/20/2017 [facility] Systolic (mm Hg) 148 05/20/2017 [facility] Diastolic (mm Hg) 87 05/20/2017 [facility] Respitory Rate 24 05/20/2017 [facility] Systolic (mm Hg) 145 05/20/2017 [facility] Diastolic (mm Hg) 79 05/20/2017 [facility] Temperature Oral (F) 98.6 F 05/20/2017 [facility] Temperature Oral (F) 98.1 F 05/20/2017 [facility] Temperature Oral (F) 98.5 F 05/20/2017 [facility] Height 157.48 cm 05/17/2017 [facility] Heart Rate 74 05/17/2017 [facility] Heart Rate 64 05/17/2017 [facility] BMI Calculated 50.22 05/17/2017 [facility] Height 157.48 cm 05/17/2017 [facility] Weight 124.545 05/17/2017 [facility] Heart Rate 73 05/17/2017 [facility] Encounters Location Location Encounter Encounter Reason Attending ADM DC Status Source Details Type Number For Provider Date Date Visit [facility] Outpt Diag [id number] José 05/20 05/21 [facility] /2014 [facility] Inpatient [id number] [facility]/17 [facility] Out[facility] [id number] ISAAC 08/[address] Outpatient [id number] ISAAC 09/21 [place] [address] [place] Outpatient [id number] ISAAC 10/07 [place] [address] [place] Outpatient [id number] ISAAC 11/09 [place] [address] [place] Procedures Procedure Code Date Perfomer Comments Source Abdominal [id number] [facility] Arthroplasty of [id number] RIGHT KNEE [facility] knee<sup>1</sup> Hospital Skin graft to [id number] SKIN GRAFT [facility] extremity<sup>2</medina FROM RIGHT TO Hospital p> RIGHT FEET Tubal sterilisation [id number] [facility]
--- OUTSIDE RECORDS SUMMARY | 2018-04-11 13:28 | XMS REPORT ---
:1960 Author Organization [facility] Address [address] [place] [address] Care Team Providers Name Role Phone Unavailable Unavailable Unavailable Payers Payer Name Policy Type Policy Number Effective Date Expiration Date Problems This patient has no known problems. Allergies, Adverse Reactions, Alerts Allergy Name Allergy Status Severity Reaction(s) Onset Inactive Treating Comments Type Date Date Clinician sulfamethoxazol DA Active U e 03-07 00:00: 00 trimethoprim DA Active U 03-07 00:00: 00 penicillin DA Active NV 10-25 00:00: 00 Medications This patient has no known medications.
[2018-04-11] MEDS ORDERED: RIVAROXABAN 20 MG TABLET PO ONE (13:55)
--- NOTE | 2018-04-11 13:56 | EDPHYS ---
Physician Documentation [facility] Name: Dori Ctoter Age: 58 yrs Sex: Female : 1960 Arrival Date: 04/11/2018 Time: 13:25 Bed 13 Private MD: ED Physician Sebastian Maldonado HPI: 04/11 13:36 This 58 yrs old Black Female presents to ER via Wheelchair with complaints of sent from [facility] US for DVT.. 13:36 patient had a recent LHC in right groin. Was having right calf pain after event. Went ps1 to urgent care for evaluation and sent to get US of leg for DVT. Positive DVT of right popliteal vein. Patient is not on anticoagulants. Pain rated as moderate and associated with right lower leg swelling. . Historical: - Allergies: 13:25 Bactrim; rb1 - Home Meds: 13:25 aspirin 81 mg Oral TbEC 1 tab once daily [Active]; Coreg 25 mg Oral tab 1 tab 2 times rb1 per day [Active]; Flexeril 10 mg Oral tab 1 tab 3 times per day [Active]; Hydrochlorothiazide Oral [Active]; losartan 50 mg Oral tab 1 tab once daily [Active]; Nitro Paste Topical [Active]; Norvasc 10 mg Oral tab [Active]; Protonix 40 mg Oral TbEC 1 tab once daily [Active]; - PMHx: 13:25 Diabetes - NIDDM; High Cholesterol; Hypertension; rb1 - PSHx: 13:25 Hysterectomy; Knee surgery; rb1 - Immunization history:: Adult Immunizations up to date. - Ebola Screening: : Patient negative for fever greater than or equal to 101.5 degrees Fahrenheit, and additional compatible Ebola Virus Disease symptoms. - Social history:: Smoking status: Patient/guardian denies using tobacco. ROS: 13:36 Constitutional: Negative for fever, chills, and weight loss, Eyes: Negative for injury, ps1 pain, redness, and discharge, Cardiovascular: Negative for chest pain, palpitations, and edema, Respiratory: Negative for shortness of breath, cough, wheezing, and pleuritic chest pain, Abdomen/GI: Negative for abdominal pain, nausea, vomiting, diarrhea, and constipation, Skin: Negative for injury, rash, and discoloration, Neuro: Negative for headache, weakness, numbness, tingling, and seizure. 13:36 MS/extremity: Positive for pain, tenderness, of the right calf. Exam: 13:36 Constitutional: This is a well developed, well nourished patient who is awake, alert, ps1 and in no acute distress. Head/Face: Normocephalic, atraumatic. Eyes: Pupils equal round and reactive to light, extra-ocular motions intact. Lids and lashes normal. Conjunctiva and sclera are non-icteric and not injected. Chest/axilla: Normal chest wall appearance and motion. Nontender with no deformity. No lesions are appreciated. Cardiovascular: Regular rate and rhythm. No gallops, murmurs, or rubs. Normal PMI, no JVD. No pulse deficits. Respiratory: Lungs have equal breath sounds bilaterally, clear to auscultation and percussion. No rales, rhonchi or wheezes noted. No increased work of breathing, no retractions or nasal flaring. Abdomen/GI: Soft, non-tender, with normal bowel sounds. No distension or tympany. No guarding or rebound. No evidence of tenderness throughout. Skin: Warm, dry with normal turgor. Normal color with no rashes, no lesions, and no evidence of cellulitis. Neuro: Awake and alert, GCS 15, oriented to person, place, time, and situation. Cranial nerves II-XII grossly intact. Sensory grossly intact. Psych: Awake, alert, with orientation to person, place and time. Behavior, mood, and affect are within normal limits. 13:36 Musculoskeletal/extremity: Extremities: grossly normal except: noted in the right calf: pain, swelling, tenderness. Vital Signs: 13:25 BP 172 / 94; Pulse 65; Resp 18; Temp 97.4; Pulse Ox 100% ; Weight 117.93 kg; Height 5 sv ft. 2 in. (157.48 cm); Pain 5/10; 14:25 BP 166 / 87; Pulse 70; Resp 19; Pulse Ox 97% on R/A; rb1 13:25 Body Mass Index 47.55 (117.93 kg, 157.48 cm) sv MDM: 13:36 Data reviewed: vital signs, nurses notes, and as a result, I will discharge patient, ps1 start xarelto for DVT. 13:49 Patient medically screened. ps1 13:54 ED course: pt denies chest pain. no PIPE. No hypoxia. Small clot burden DVT. Start ps1 xarelto therapy and follow up with PCP. Stable. . Administered Medications: 14:01 Not Given (provider changed dosage): Xarelto 20 mg PO once rb1 14:43 Drug: Xarelto 15 mg Route: PO; rb1 15:05 Follow up: Response: No adverse reaction rb1 Disposition: 04/11/18 13:56 Discharged to Home. Impression: Right popliteal DVT. . - Condition is Stable. - Discharge Instructions: Deep Vein Thrombosis. - Prescriptions for Xarelto 10 mg Oral tablet - take 1 tablet by ORAL route once daily take 15mg bid for 21 days then 20mg thereafter until discontinued. Please provide Xarelto starter pack for DVT if available or 77 tabs.; 1 unit. Tylenol- Codeine #3 300-30 mg Oral Tablet - take 2 tablet by ORAL route every 6 hours As needed; 30 tablet. Zofran 4 mg Oral Tablet - take 1 tablet by ORAL route every 12 hours As needed; 20 tablet. - Work release form, Medication Reconciliation Form, Thank You Letter, Antibiotic Education, Prescription Opioid Use form. - Follow up: Private Physician; When: 1 week; Reason: Further diagnostic work-up, Recheck today's complaints, Continuance of care, Re-evaluation by your physician. Follow up: Emergency Department; When: As needed; Reason: Trouble breathing, Worsening of condition. - Problem is new. - Symptoms are unchanged. Signatures: Mary Kay Powell RN RN rb1 Sebastian Maldonado MD MD ps1 Corrections: (The following items were deleted from the chart) 15:09 13:56 04/11/2018 13:56 Discharged to Home. Impression: Right popliteal DVT. . Condition rb1 is Stable. Forms are Medication Reconciliation Form, Thank You Letter, Antibiotic Education, Prescription Opioid Use. Follow up: Private Physician; When: 1 week; Reason: Further diagnostic work-up, Recheck today's complaints, Continuance of care, Re-evaluation by your physician. Follow up: Emergency Department; When: As needed; Reason: Trouble breathing, Worsening of condition. Problem is new. Symptoms are unchanged. ps1
--- NOTE | 2018-04-11 13:56 | ER ---
Nurse's Notes [facility] Name: Dori Cotter Age: 58 yrs Sex: Female : 1960 Arrival Date: 04/11/2018 Time: 13:25 Bed 13 Private MD: Diagnosis: Right popliteal DVT. Presentation: 04/11 13:25 Presenting complaint: Patient states: c/o pain in the right leg x 1 week. Pt. was sent rb1 to us from Ultrasound. Transition of care: patient was not received from another setting of care. Onset of symptoms is unknown. Risk Assessment: Do you want to hurt yourself or someone else? Patient reports no desire to harm self or others. Initial Sepsis Screen: Does the patient meet any 2 criteria? No. Patient's initial sepsis screen is negative. Does the patient have a suspected source of infection? No. Patient's initial sepsis screen is negative. Care prior to arrival: Medication(s) given: Toradol at 11:00. 13:25 Method Of Arrival: Wheelchair rb1 13:25 Acuity: RANDI 3 rb1 Triage Assessment: 13:25 General: Appears in no apparent distress. comfortable, Behavior is calm, cooperative. rb1 Pain: Complains of pain in right leg Pain currently is 5 out of 10 on a pain scale. Pain began x 1 week. Neuro: Level of Consciousness is awake, alert, obeys commands, Oriented to person, place, time, situation. Cardiovascular: Capillary refill < 3 seconds is brisk in bilateral fingers. Respiratory: Airway is patent Respiratory effort is even, unlabored, Respiratory pattern is regular, symmetrical. GI: No signs and/or symptoms were reported involving the gastrointestinal system. : No signs and/or symptoms were reported regarding the genitourinary system. Derm: Skin is dry, Skin is normal, Skin temperature is warm. Musculoskeletal: Range of motion: intact in all extremities. Historical: - Allergies: 13:25 Bactrim; rb1 - Home Meds: 13:25 aspirin 81 mg Oral TbEC 1 tab once daily [Active]; Coreg 25 mg Oral tab 1 tab 2 times rb1 per day [Active]; Flexeril 10 mg Oral tab 1 tab 3 times per day [Active]; Hydrochlorothiazide Oral [Active]; losartan 50 mg Oral tab 1 tab once daily [Active]; Nitro Paste Topical [Active]; Norvasc 10 mg Oral tab [Active]; Protonix 40 mg Oral TbEC 1 tab once daily [Active]; - PMHx: 13:25 Diabetes - NIDDM; High Cholesterol; Hypertension; rb1 - PSHx: 13:25 Hysterectomy; Knee surgery; rb1 - Immunization history:: Adult Immunizations up to date. - Ebola Screening: : Patient negative for fever greater than or equal to 101.5 degrees Fahrenheit, and additional compatible Ebola Virus Disease symptoms. - Social history:: Smoking status: Patient/guardian denies using tobacco. Screenin:25 Abuse screen: Denies threats or abuse. Denies injuries from another. Nutritional sv screening: No deficits noted. Tuberculosis screening: No symptoms or risk factors identified. Fall Risk None identified. Assessment: 13:25 General: See triage assessment. rb1 14:00 Reassessment: Called pharmacy and spoke to Oliverio to check on the status of the rb1 Xarelto. They are waiting for someone to be available to bring it to the floor. Informed Oliverio that Dr. Maldonado changed order from Xarelto 20 mg PO once to Xarelto 15 mg PO x once. 14:15 Reassessment: Discharge pending due to waiting on pharmacy to bring the Xarelto to the rb1 floor. Vital Signs: 13:25 BP 172 / 94; Pulse 65; Resp 18; Temp 97.4; Pulse Ox 100% ; Weight 117.93 kg; Height 5 sv ft. 2 in. (157.48 cm); Pain 5/10; 14:25 BP 166 / 87; Pulse 70; Resp 19; Pulse Ox 97% on R/A; rb1 13:25 Body Mass Index 47.55 (117.93 kg, 157.48 cm) sv ED Course: 13:25 Patient arrived in ED. sv 13:25 Mary Kay Powell, RN is Primary Nurse. rb1 13:25 Arm band placed on Patient placed in an exam room, on a stretcher. sv 13:25 Patient has correct armband on for positive identification. Bed in low position. Call sv light in reach. Pulse ox on. NIBP on. Door closed. Head of bed elevated. 13:26 Sebastian Maldonado MD is Attending Physician. ps1 13:28 Triage completed. rb1 13:30 Inserted saline lock: 20 gauge in right antecubital area, using aseptic technique. rb1 ,using aseptic technique. Inserted by LIZBETH Emanuel tech. 15:09 No provider procedures requiring assistance completed. IV discontinued, intact, rb1 bleeding controlled, No redness/swelling at site. Pressure dressing applied. Administered Medications: 14:01 Not Given (provider changed dosage): Xarelto 20 mg PO once rb1 14:43 Drug: Xarelto 15 mg Route: PO; rb1 15:05 Follow up: Response: No adverse reaction rb1 Outcome: 13:56 Discharge ordered by . ps1 15:09 Patient left the ED. rb1 15:09 Discharged to home via wheelchair, with family. rb1 15:09 Condition: stable 15:09 Discharge instructions given to patient, Instructed on discharge instructions, follow up and referral plans. medication usage, Demonstrated understanding of instructions, follow-up care, medications, Prescriptions given X 3. Signatures: Ilana Hernandes, RN RN sv Mary Kay Powell RN RN rb1 Sebastian Maldonado MD MD ps1
[2018-04-11] MEDS ORDERED: RIVAROXABAN 15 MG TABLET PO ONE (14:15)
[2018-04-11 15:18] VITALS: TEMP 97.4
[2018-04-11 15:19] VITALS: BP 166/87; O2SAT 97
== END 2018-04-11 15:09 | disposition home or self-care (01) ==
LOC: ER 13:23
DX: I82.431 Acute embolism and thrombosis of right popliteal vein (principal); Z79.82 Long term (current) use of aspirin; E11.9 Type 2 diabetes mellitus without complications; I10 Essential (primary) hypertension; E78.00 Pure hypercholesterolemia, unspecified
CPT/HCPCS: 99284

== ENCOUNTER 2018-12-22 21:58 | Observation (INO) | payer OTHER ==
[2018-12-22] MEDS ORDERED: NA CHLORIDE 0.9% 1,000 ML ONE (22:31)
[2018-12-22 22:58] LABS: Absolute Lymphocytes (CBC) 2.3 K/uL (0.7-4.9); Basophils % 1.2 % (0-1.3); Lymphocytes % 38.4 % (15.3-44.8); RBC Red Blood Cell Count 4.53 M/uL (3.86-4.86)
[2018-12-22 23:05] LABS: Protime INR 1.4
[2018-12-22 23:17] LABS: ALT/SGPT 20 U/L (12-78); AST/SGOT 16 U/L (15-37); Albumin 3.4 g/dL (3.4-5.0); Alkaline Phosphatase 112 U/L (45-117); BUN Blood Urea Nitrogen 14 mg/dL (7-18); Bicarbonate 29 mmol/L (21-32); Bilirubin Direct < 0.1 mg/dL (0-0.2); Bilirubin Total 0.3 mg/dL (0.2-1.0); Glucose Level 174 mg/dL (74-106); Lipase 139 U/L (73-393); Magnesium 1.7 mg/dL (1.8-2.4); NT PRO-BNP 52 pg/mL (<125); Potassium 3.4 mmol/L (3.5-5.1); Protein, Total 7.5 g/dL (6.4-8.2); Sodium Level 140 mmol/L (136-145); Troponin (Emerg Dept Use Only) < 0.02 ng/mL (0.0-0.045)
--- NOTE | 2018-12-22 23:34 | ER ---
Nurse's Notes [facility] Name: Dori Cotter Age: 58 yrs Sex: Female : 1960 Arrival Date: 12/22/2018 Time: 21:59 Bed 5 Private MD: Diagnosis: Abdominal tenderness;Gastrointestinal hemorrhage, unspecified-lower;Obesity, unspecified;Hypokalemia;Hypomagnesemia Presentation: 12/22 22:05 Presenting complaint: Patient states: that she is having rectal bleeding that started fc yesterday. 2 episodes yesterday and has gone thru 5 pads today. Also having rectal pain. States that 1 yr ago she had a rectal tear. Transition of care: patient was not received from another setting of care. Onset of symptoms was December 21, 2018. Risk Assessment: Do you want to hurt yourself or someone else? Patient reports no desire to harm self or others. Initial Sepsis Screen: Does the patient meet any 2 criteria? No. Patient's initial sepsis screen is negative. Does the patient have a suspected source of infection? No. Patient's initial sepsis screen is negative. Care prior to arrival: None. 22:05 Method Of Arrival: Ambulatory fc 22:05 Acuity: RANDI 3 fc Historical: - Allergies: 22:20 Bactrim; fc - Home Meds: 22:20 Protonix 40 mg Oral TbEC 1 tab once daily [Active]; Xarelto 20 mg oral tab 1 tab once fc daily [Active]; hydrochlorothiazide 25 mg oral tab 1 tab once daily [Active]; Coreg 25 mg Oral tab 1 tab daily [Active]; Norvasc 10 mg Oral tab 1 tab once daily [Active]; valsartan 160 mg oral tab 1 tab once daily [Active]; - PMHx: 22:20 Diabetes - NIDDM; Hypertension; High Cholesterol; dvt- rt leg; GERD; fc - PSHx: 22:20 Hysterectomy; Knee surgery; Tubal ligation; Skin graft; fc - Immunization history:: Last tetanus immunization: unknown, Flu vaccine is not up to date. - Social history:: Smoking status: Patient/guardian denies using tobacco, Patient uses alcohol, occasionally. Patient/guardian denies using street drugs. - Ebola Screening: : Patient negative for fever greater than or equal to 101.5 degrees Fahrenheit, and additional compatible Ebola Virus Disease symptoms Patient denies exposure to infectious person Patient denies travel to an Ebola-affected area in the 21 days before illness onset. - Family history:: not pertinent. Screenin:05 Abuse screen: Denies threats or abuse. Nutritional screening: No deficits noted. fc Tuberculosis screening: No symptoms or risk factors identified. Fall Risk None identified. Assessment: 23:00 General: Appears uncomfortable, Behavior is appropriate for age. Pain: Complains of ea pain in left lower quadrant and right lower quadrant. Neuro: Level of Consciousness is awake, alert, obeys commands, Oriented to person, place, time, situation. Cardiovascular: Patient's skin is warm and dry. Respiratory: Airway is patent Respiratory effort is even, unlabored, Respiratory pattern is regular, symmetrical. GI: Abdomen is non-distended, Bowel sounds present X 4 quads. Abdomen is tender to palpation in left lower quadrant and right lower quadrant. Derm: Skin is pink, warm \T\ dry. Musculoskeletal: Circulation, motion, and sensation intact. 12/23 00:03 Reassessment: pt in CT. ak1 00:43 Reassessment: pt returned from CT, unable to perform CT due to IV not flushing. Charge ak1 nurse notified and a midline is to be placed. 01:00 Reassessment: Patient and/or family updated on plan of care and expected duration. Pain ea level reassessed. Patient is alert, oriented x 3, equal unlabored respirations, skin warm/dry/pink. 02:30 Reassessment: Patient and/or family updated on plan of care and expected duration. Pain ea level reassessed. Patient is alert, oriented x 3, equal unlabored respirations, skin warm/dry/pink. Reassessment: Patient and/or family updated on plan of care and expected duration. Pain level reassessed. Patient is alert, oriented x 3, equal unlabored respirations, skin warm/dry/pink. 03:30 Reassessment: Patient and/or family updated on plan of care and expected duration. Pain ea level reassessed. Patient is alert, oriented x 3, equal unlabored respirations, skin warm/dry/pink. 04:45 Reassessment: Patient and/or family updated on plan of care and expected duration. Pain ea level reassessed. Patient is alert, oriented x 3, equal unlabored respirations, skin warm/dry/pink. Report called to receiving nurse on fourth floor. 05:02 Reassessment: Patient and/or family updated on plan of care and expected duration. Pain ea level reassessed. Patient is alert, oriented x 3, equal unlabored respirations, skin warm/dry/pink. Pt admitted to fourth floor, left ED per wheelchair per tech, pt tolerating well. Vital Signs: 12/22 22:05 BP 171 / 70; Pulse 68; Resp 18; Temp 97.5(O); Pulse Ox 98% on R/A; Weight 121.56 kg fc (R); Height 5 ft. 2 in. (157.48 cm) (R); Pain 6/10; 23:54 BP 161 / 64; Pulse 65; Resp 18; Pulse Ox 98% on R/A; ea 12/23 00:00 BP 146 / 54; Pulse 63; Resp 18; Pulse Ox 98% on R/A; ea 01:00 BP 157 / 70; Pulse 66; Resp 18; Pulse Ox 100% ; ea 04:46 BP 163 / 79; Pulse 60; Resp 18; Temp 97.6; Pulse Ox 98% on R/A; ea 12/22 22:05 Body Mass Index 49.02 (121.56 kg, 157.48 cm) ED Course: 12/22 21:59 Patient arrived in ED. ds1 22:05 Arm band placed on right wrist. Patient placed in an exam room, on a stretcher. fc 22:05 Patient has correct armband on for positive identification. Placed in gown. Bed in low fc position. Call light in reach. Side rails up X2. Pulse ox on. NIBP on. 22:05 No provider procedures requiring assistance completed. fc 22:16 Triage completed. fc 22:20 Pasha King MD is Attending Physician. [facility] 22:25 Radiology exam delayed due to lab results not completed at this time. (BUN/Creatinine). vm2 22:29 Kenya Crook, PATRICK is Primary Nurse. ea 22:40 XRAY Chest (1 view) In Process Unspecified. EDMS 22:57 Radiology exam delayed due to lab results not completed at this time. (BUN/Creatinine). 22:57 Inserted saline lock: 20 gauge in right antecubital area, using aseptic technique. ea Blood collected. 23:09 EKG done, by ED staff, reviewed by Pasha King MD. em1 23:33 JuliosarahJosé is Hospitalizing Provider. [facility] 12/23 00:55 Radiology exam delayed due to IV insertion attempt and/or patient not having kw1 appropriate IV at this time. 02:26 Patient admitted, IV remains in place. ea Administered Medications: Discontinued: NS 0.9% 1000 ml IV at 125 ml/hr continuous 12/22 22:57 Drug: NS 0.9% 1000 ml Route: IV; Rate: 125 ml/hr; Site: right antecubital; ea 12/23 00:37 Not Given (Patient Refused): NS 0.9% with KCl 20 mEq/L 1000 ml IV at 125 ml/hr ak1 continuous 00:43 Drug: Potassium Chloride 20 mEq Route: PO; ak1 02:52 Follow up: Response: No adverse reaction ak1 02:25 Drug: Cipro 400 mg Volume: 200 ml; Route: IVPB; Infused Over: 60 mins; Site: left ea forearm; 03:30 Follow up: Response: No adverse reaction; IV Status: Completed infusion ea 02:25 Drug: Flagyl 500 mg Volume: 100 ml; Route: IVPB; Rate: 200 ml/hr; Infused Over: 30 ea mins; Site: left forearm; 03:15 Follow up: Response: No adverse reaction; IV Status: Completed infusion ea 04:40 Drug: Magnesium Sulfate 1 grams Route: IVPB; Infused Over: 1 hrs; Site: left ak1 antecubital; 05:03 Follow up: Response: No adverse reaction; IV Status: Infusion continued upon transfer ea Outcome: 12/22 23:34 Decision to Hospitalize by Provider. [facility] 12/23 03:15 Instructed on the need for admit, Demonstrated understanding of instructions. ea 04:44 Admitted to Med/surg accompanied by tech, room 428, Report called to Receiving nurse ea on fourth floor 04:44 Condition: stable 05:03 Patient left the ED. ea Signatures: Dispatcher [employer] EDMS Pasha King MD MD cha Jones, Susan sj Chretien, Felicia, RN RN Sherry Gonzalez ds1 Gaurang Hernandez em1 Kiki Aldana RN RN ak1 Kristina Byers2 Crook, Kenya, RN RN ea González, Arabella kw1
--- NOTE | 2018-12-22 23:35 | EDPHYS ---
Physician Documentation [facility] Name: Dori Cotter Age: 58 yrs Sex: Female : 1960 Arrival Date: 12/22/2018 Time: 21:59 Bed 5 Private MD: ED Physician Pasha King HPI: 12/22 23:31 This 58 yrs old Black Female presents to ER via Ambulatory with complaints of Rectal kirstie Bleeding. 23:31 The patient presents to the emergency department with bleeding from the rectum/anus, kirstie that is moderate. Onset: The symptoms/episode began/occurred 2 day(s) ago. Context: the patient has no known special context relating to the rectal area complaint(s). Modifying factors: The symptoms are alleviated by nothing, remaining still, The symptoms are aggravated by nothing. Associate signs and symptoms: The patient has no apparent associated signs or symptoms. The patient has not experienced similar symptoms in the past. Historical: - Allergies: 22:20 Bactrim; fc - Home Meds: 22:20 Protonix 40 mg Oral TbEC 1 tab once daily [Active]; Xarelto 20 mg oral tab 1 tab once fc daily [Active]; hydrochlorothiazide 25 mg oral tab 1 tab once daily [Active]; Coreg 25 mg Oral tab 1 tab daily [Active]; Norvasc 10 mg Oral tab 1 tab once daily [Active]; valsartan 160 mg oral tab 1 tab once daily [Active]; - PMHx: 22:20 Diabetes - NIDDM; Hypertension; High Cholesterol; dvt- rt leg; GERD; fc - PSHx: 22:20 Hysterectomy; Knee surgery; Tubal ligation; Skin graft; fc - Immunization history:: Last tetanus immunization: unknown, Flu vaccine is not up to date. - Social history:: Smoking status: Patient/guardian denies using tobacco, Patient uses alcohol, occasionally. Patient/guardian denies using street drugs. - Ebola Screening: : Patient negative for fever greater than or equal to 101.5 degrees Fahrenheit, and additional compatible Ebola Virus Disease symptoms Patient denies exposure to infectious person Patient denies travel to an Ebola-affected area in the 21 days before illness onset. - Family history:: not pertinent. ROS: 23:31 Constitutional: Negative for fever, chills, and weight loss, Eyes: Negative for injury, kirstie pain, redness, and discharge, ENT: Negative for injury, pain, and discharge, Neck: Negative for injury, pain, and swelling, Cardiovascular: Negative for chest pain, palpitations, and edema, Respiratory: Negative for shortness of breath, cough, wheezing, and pleuritic chest pain, Back: Negative for injury and pain, : Negative for injury, bleeding, discharge, and swelling, MS/Extremity: Negative for injury and deformity, Skin: Negative for injury, rash, and discoloration, Neuro: Negative for headache, weakness, numbness, tingling, and seizure, Psych: Negative for depression, anxiety, suicide ideation, homicidal ideation, and hallucinations, Allergy/Immunology: Negative for hives, rash, and allergies, Endocrine: Negative for neck swelling, polydipsia, polyuria, polyphagia, and marked weight changes, Hematologic/Lymphatic: Negative for swollen nodes, abnormal bleeding, and unusual bruising. 23:31 Abdomen/GI: Positive for abdominal pain, of the suprapubic area, right lower quadrant and left lower quadrant. 23:33 Abdomen/GI: Positive for abdominal cramps, rectal pain, rectal bleeding. kirstie Exam: 23:31 Constitutional: This is a well developed, well nourished patient who is awake, alert, kirstie and in no acute distress. Head/Face: Normocephalic, atraumatic. Eyes: Pupils equal round and reactive to light, extra-ocular motions intact. Lids and lashes normal. Conjunctiva and sclera are non-icteric and not injected. Cornea within normal limits. Periorbital areas with no swelling, redness, or edema. ENT: Nares patent. No nasal discharge, no septal abnormalities noted. Tympanic membranes are normal and external auditory canals are clear. Oropharynx with no redness, swelling, or masses, exudates, or evidence of obstruction, uvula midline. Mucous membranes moist. Neck: Trachea midline, no thyromegaly or masses palpated, and no cervical lymphadenopathy. Supple, full range of motion without nuchal rigidity, or vertebral point tenderness. No Meningismus. Chest/axilla: Normal chest wall appearance and motion. Nontender with no deformity. No lesions are appreciated. Cardiovascular: Regular rate and rhythm with a normal S1 and S2. No gallops, murmurs, or rubs. Normal PMI, no JVD. No pulse deficits. Respiratory: Lungs have equal breath sounds bilaterally, clear to auscultation and percussion. No rales, rhonchi or wheezes noted. No increased work of breathing, no retractions or nasal flaring. Back: No spinal tenderness. No costovertebral tenderness. Full range of motion. Female : Normal external genitalia. Skin: Warm, dry with normal turgor. Normal color with no rashes, no lesions, and no evidence of cellulitis. MS/ Extremity: Pulses equal, no cyanosis. Neurovascular intact. Full, normal range of motion. Neuro: Awake and alert, GCS 15, oriented to person, place, time, and situation. Cranial nerves II-XII grossly intact. Motor strength 5/5 in all extremities. Sensory grossly intact. Cerebellar exam normal. Normal gait. Psych: Awake, alert, with orientation to person, place and time. Behavior, mood, and affect are within normal limits. 23:31 Abdomen/GI: Inspection: abdomen appears normal, Bowel sounds: normal, Palpation: mild abdominal tenderness, moderate abdominal tenderness, in the right lower quadrant and left lower quadrant, Liver: no appreciated palpable abnormalities, Hernia: not appreciated. 23:53 Abdomen/GI: Rectal exam: is unremarkable, rectal tone Stool: guaiac positive, kirstie hemorrhoid(s), are not appreciated, mass, is not appreciated, swelling, is not appreciated, tenderness, is not appreciated, fecal impaction, is not appreciated. Vital Signs: 22:05 BP 171 / 70; Pulse 68; Resp 18; Temp 97.5(O); Pulse Ox 98% on R/A; Weight 121.56 kg fc (R); Height 5 ft. 2 in. (157.48 cm) (R); Pain 6/10; 23:54 BP 161 / 64; Pulse 65; Resp 18; Pulse Ox 98% on R/A; ea 12/23 00:00 BP 146 / 54; Pulse 63; Resp 18; Pulse Ox 98% on R/A; ea 01:00 BP 157 / 70; Pulse 66; Resp 18; Pulse Ox 100% ; ea 04:46 BP 163 / 79; Pulse 60; Resp 18; Temp 97.6; Pulse Ox 98% on R/A; ea 12/22 22:05 Body Mass Index 49.02 (121.56 kg, 157.48 cm) fc MDM: 12/22 22:20 Patient medically screened. [facility] 23:32 Data reviewed: vital signs, nurses notes, lab test result(s), EKG, radiologic studies, [facility] CT scan, plain films. 12/22 22:21 Order name: Basic Metabolic Panel; Complete Time: 23:28 [facility] 12/22 22:21 Order name: CBC with Diff; Complete Time: 23:28 [facility] 12/22 22:21 Order name: LFT's; Complete Time: 23:28 [facility] 12/22 22:21 Order name: Magnesium; Complete Time: 23:28 [facility] 12/22 22:21 Order name: NT PRO-BNP; Complete Time: 23:28 [facility] 12/22 22:21 Order name: PT-INR; Complete Time: 23:28 [facility] 12/22 22:21 Order name: Troponin (emerg Dept Use Only); Complete Time: 23:28 [facility] 12/22 22:21 Order name: XRAY Chest (1 view) [facility] 12/22 22:21 Order name: Lipase; Complete Time: 23:28 [facility] 12/22 22:21 Order name: CT Abd/Pelvis - IV Contrast Only [facility] 12/22 22:21 Order name: Urine Culture [facility] 12/22 22:21 Order name: Type And Screen; Complete Time: 00:29 [facility] 12/22 22:21 Order name: EKG; Complete Time: 22:23 [facility] 12/22 22:21 Order name: Cardiac monitoring; Complete Time: 23:54 [facility] 12/22 22:21 Order name: EKG - Nurse/Tech; Complete Time: 23:09 [facility] 12/22 22:21 Order name: IV Saline Lock; Complete Time: 22:53 [facility] 12/22 22:21 Order name: Labs collected and sent; Complete Time: 22:53 [facility] 12/22 22:21 Order name: O2 Per Protocol; Complete Time: 22:53 [facility] 12/22 22:21 Order name: O2 Sat Monitoring; Complete Time: 22:53 [facility] 12/22 22:21 Order name: Urine Dipstick-Ancillary (obtain specimen); Complete Time: 00:37 [facility] Administered Medications: Discontinued: NS 0.9% 1000 ml IV at 125 ml/hr continuous 22:57 Drug: NS 0.9% 1000 ml Route: IV; Rate: 125 ml/hr; Site: right antecubital; 12/23 00:37 Not Given (Patient Refused): NS 0.9% with KCl 20 mEq/L 1000 ml IV at 125 ml/hr ak1 continuous 00:43 Drug: Potassium Chloride 20 mEq Route: PO; ak1 02:52 Follow up: Response: No adverse reaction ak1 02:25 Drug: Cipro 400 mg Volume: 200 ml; Route: IVPB; Infused Over: 60 mins; Site: left ea forearm; 03:30 Follow up: Response: No adverse reaction; IV Status: Completed infusion ea 02:25 Drug: Flagyl 500 mg Volume: 100 ml; Route: IVPB; Rate: 200 ml/hr; Infused Over: 30 ea mins; Site: left forearm; 03:15 Follow up: Response: No adverse reaction; IV Status: Completed infusion ea 04:40 Drug: Magnesium Sulfate 1 grams Route: IVPB; Infused Over: 1 hrs; Site: left ak1 antecubital; 05:03 Follow up: Response: No adverse reaction; IV Status: Infusion continued upon transfer ea Disposition: 12/22/18 23:34 Hospitalization ordered by José Najera for Inpatient Admission. Preliminary diagnosis are Abdominal tenderness, Gastrointestinal hemorrhage, unspecified - lower, Obesity, unspecified, Hypokalemia, Hypomagnesemia. - Bed requested for Telemetry/MedSurg (Inpatient). - Status is Inpatient Admission. ea - Condition is Fair. - Problem is new. - Symptoms have improved. UTI on Admission? No Signatures: Dispatcher [employer] EDNorma Penny RN RN dw Anderson, Corey, MD MD cha Chretien, Felicia, RN RN fc Krenek, Amber, RN RN [facility] Kenya Crook RN RN ea Corrections: (The following items were deleted from the chart) 12/22 23:35 23:34 Hospitalization Ordered by José Najera for Inpatient Admission. Preliminary [facility] diagnosis is Abdominal tenderness; Gastrointestinal hemorrhage, unspecified - lower; Obesity, unspecified. Bed requested for Telemetry/MedSurg (Inpatient). Status is Inpatient Admission. Condition is Fair. Problem is new. Symptoms have improved. UTI on Admission? No. kirstie 12/23 01:50 12/22 23:35 12/22/2018 23:34 Hospitalization Ordered by José Najera for Inpatient dw Admission. Preliminary diagnosis is Abdominal tenderness; Gastrointestinal hemorrhage, unspecified - lower; Obesity, unspecified; Hypokalemia; Hypomagnesemia. Bed requested for Telemetry/MedSurg (Inpatient). Status is Inpatient Admission. Condition is Fair. Problem is new. Symptoms have improved. UTI on Admission? No. kirstie 12/23 05:03 01:50 12/22/2018 23:34 Hospitalization Ordered by José Najera for Inpatient ea Admission. Preliminary diagnosis is Abdominal tenderness; Gastrointestinal hemorrhage, unspecified - lower; Obesity, unspecified; Hypokalemia; Hypomagnesemia. Bed requested for Telemetry/MedSurg (Inpatient). Status is Inpatient Admission. Condition is Fair. Problem is new. Symptoms have improved. UTI on Admission? No. dw
[2018-12-22] MEDS ORDERED: MAGNESIUM SULFATE 1 gm IVPB 1 GM/100 ML BAG IV ONE (23:53)
[2018-12-22] MEDS ORDERED: METRONIDAZOLE 500mg IVPB 500 MG/100 ML BAG IV ONE (23:54)
[2018-12-22] MEDS ORDERED: CIPROFLOXACIN 400mg IV 400 MG/200 ML BAG IV ONE (23:54)
[2018-12-23] MEDS ORDERED: POTASSIUM CL SA 10 MEQ TAB PO ONE (00:39)
--- NOTE | 2018-12-23 01:17 | P.HP ---
Certification for Inpatient Patient admitted to: Observation With expected LOS: <2 Midnights Patient will require the following post-hospital care: None Practitioner: I am a practitioner with admitting privileges, knowledge of patient current condition, hospital course, and medical plan of care. Services: Services provided to patient in accordance with Admission requirements found in Title 42 Section 412.3 of the Code of Federal Regulations Patient History Date of Service: 12/23/18 Reason for admission: Rectal bleed History of Present Illness: 58-year-old morbidly obese woman with a history of DVT diagnosed in March 2018, being treated with Xarelto presented to the emergency department with a complaint of rectal bleed of 2 days duration. Patient reports bloody bowel movement, stool mixed with red blood, she also saw blood on the tissue paper. She is also complaining of pain in the rectal area. She reports history of intermittent rectal bleed, saw Dr. Arellano about 1 year ago, have had an EGD performed which per patient was unremarkable. She also had a routine colonoscopy. Patient stated Dr. Arellano diagnosed her with a rectal tear or fissure causing the intermittent bleed. Hemoglobin and platelet count are within normal range. CT abdomen and pelvis is pending. Patient is placed under observation for further evaluation. Allergies medroxyprogesterone acetate [From Provera] Allergy (Intermediate, Verified 02/28 01:29) Itching Penicillins Allergy (Intermediate, Verified 02/28/17 01:29) Hives/Rash azithromycin Allergy (Verified 02/28/17 01:29) Itching/Hives/Rash sulfamethoxazole [From Bactrim] Allergy (Verified 02/28/17 01:29) Unknown trimethoprim [From Bactrim] Allergy (Verified 02/28/17 01:29) Unknown Home Medications: Amlodipine [Norvasc*] 1 tab PO DAILY 12/23/18 Carvedilol [Coreg*] 1 tab PO DAILY 12/23/18 Pantoprazole Sodium 1 tab PO DAILY 12/23/18 Rivaroxaban [Xarelto] 1 tab PO DAILY 12/23/18 Valsartan [Diovan*] 1 tab PO DAILY 12/23/18 hydroCHLOROthiazide [Hydrochlorothiazide] 1 tab PO DAILY 12/23/18 - Past Medical/Surgical History Diabetic: No -: bronchitis -: pneumonia -: htn -: high cholesterol -: uti -: anemia -: herniated disks -: DVT of lower extremity -: hysterectomy -: exploratory laparotomy -: right knee surgery -: oopherectomy - Family History Father -: Heart disease, Hypertension Mother -: Hypertension, Diabetes - Social History Alcohol use: Yes CD- Drugs: No Caffeine use: Yes Review of Systems Other: General: No fever, no malaise, no unintentional weight loss. Eyes: No eye discharge, Respiratory: No cough, no shortness of breath. CVS: No chest pain, no palpitation, no lightheadedness. GI: No nausea no vomit, no constipation, no diarrhea. Genitourinary: No dysuria, no urinary frequency, no incontinence, no hematuria. Musculoskeletal: No joint pains, or joint swelling, no gait instability. Neurology: No headache, no asymmetric, weakness, no problem with swallowing. Except as documented, all other systems reviewed and negative. Physical Examination - Physical Exam General: Alert, In no apparent distress, Oriented x3, Obese HEENT: Normocephalic, Mucous membr. moist/pink Neck: Supple, JVD not distended Respiratory: Clear to auscultation bilaterally, Normal air movement Cardiovascular: No edema, Regular rate/rhythm, Normal S1 S2, No murmurs Capillary refill: <2 Seconds Gastrointestinal: Normal bowel sounds, Soft and benign, Non-distended, No tenderness Musculoskeletal: No swelling, No erythema Integumentary: No rashes, No breakdown, No erythema Neurological: Normal strength at 5/5 x4 extr, Cranial nerves 3-12 intact - Studies Laboratory Data (last 24 hrs) 12/22/18 22:50: PT 16.3 H, INR 1.40 12/22/18 22:50: WBC 5.9, Hgb 13.2, Hct 40.0, Plt Count 301 12/22/18 22:50: Sodium 140, Potassium 3.4 L, BUN 14, Creatinine 0.89, Glucose 174 H, Magnesium 1.7 L, Total Bilirubin 0.3, AST 16, ALT 20, Alkaline Phosphatase 112, Lipase 139 Assessment and Plan - Problems (Diagnosis) (1) Lower GI bleed Current Visit: Yes Status: Acute (2) History of DVT of lower extremity Current Visit: Yes Status: Acute (3) Morbidly obese Onset Date: 12/27/17 Current Visit: No Status: Chronic (4) Gastroesophageal reflux Current Visit: No Status: Suspected Qualifiers: Esophagitis presence: esophagitis presence not specified Qualified Code(s) : K21.9 - Gastro-esophageal reflux disease without esophagitis [facility] Monitor H&H q.6 hr Clear liquid diet Empiric Levaquin and Flagyl Oral Protonix GI consult. Follow CT abdomen and pelvis result. - Advance Directives Does patient have a Living Will: No Does patient have a Durable POA for Healthcare: No
[2018-12-23] MEDS ORDERED: ONDANSETRON 4 MG/2 ML VIAL IV PRN (05:16)
[2018-12-23] MEDS ORDERED: MORPHINE 2 MG/ML SYR IV PRN (05:16)
[2018-12-23] MEDS ORDERED: NA CHLORIDE 0.9% 250 ML IV SCH (05:16)
[2018-12-23 05:18] VITALS: BMI 49.3
[2018-12-23] MEDS: NA CHLORIDE 0.9% 1,000 ML IV SCH ×2 (05:35→15:45)
[2018-12-23 06:23] LABS: Hematocrit 37.3 % (36.0-45.0)
--- NOTE | 2018-12-23 07:17 | EKG ---
Test Date: 2018-12-22 Test Time: 22:56:00 Powerhouse Electrician: ALICE MEASUREMENT RESULTS: Intervals: Rate: 67 GA: 162 QRSD: 84 QT: 414 QTc: 437 [place]: P: 11 GA: 162 QRS: -15 T: 17 INTERPRETIVE STATEMENTS: Normal sinus rhythm Voltage criteria for left ventricular hypertrophy Abnormal ECG Compared to ECG 02/27/2017 17:25:45 T-wave abnormality no longer present Electronically Signed On 12-23-18 07:16:10 CDT by Kameron Nieto
--- NOTE | 2018-12-23 08:57 | RAD REPORT ---
EXAM DESCRIPTION: RAD - Chest Single View - 12/22/2018 10:50 pm CLINICAL HISTORY: Abdominal pain, abdominal distention, rectal bleeding COMPARISON: March 2017 TECHNIQUE: AP portable chest image was obtained 2237 hours . FINDINGS: Low lung volumes noted. No acute lung parenchymal process seen. Heart and vasculature are normal. No measurable pleural effusion and no pneumothorax. No acute bony abnormality seen. No acute aortic findings suspected. No significant change from comparison. IMPRESSION: No acute cardiopulmonary process.
[2018-12-23] MEDS: PANTOPRAZOLE 40MG TABLET PO SCH ×2 (09:15→17:12)
[2018-12-23] MEDS: METRONIDAZOLE 500mg IVPB 500 MG/100 ML BAG IV SCH ×2 (09:16→17:13)
[2018-12-23 09:22] LABS: Urine Appearance CLEAR; Urine Bilirubin NEGATIVE (NEG); Urine Blood NEGATIVE (NEG); Urine Color YELLOW; Urine Glucose NEGATIVE (NEG); Urine Protein 1+ (NEG); Urine Specific Gravity >=1.030 (1.005-1.030); Urine Urobilinogen 0.2 mg/dL (0.2-1.0); Urine pH 6.5 (5.0-7.0)
[2018-12-23 09:26] LABS: Urine Microscopic Reflex NO UMIC
--- NOTE | 2018-12-23 11:18 | PN ---
Date of Progress Note: 12/23/2018 Subjective: Patient seen and examined. Chart reviewed and case discussed with RN. Patient denies a ny further bleeding. Medications: List reviewed. Physical Examination: Vital Signs: Temperature 97.1, heart rate 60, blood pressure 184/86, respirations 16, O2 at 100% on room air. General: Awake, alert, oriented x3, not in any acute distress. Obese female. CV: S1, S2. Regular rate and rhythm. Peripheral pulses present. Respiratory: Moving air well bilaterally. No wheezing or stridor. No use of accessory muscles Viktor rointestinal: Abdomen is soft, nontender, nondistended. Positive bowel sounds. Extremities: No clubbing or cyanosis. Patient has right lower extremity edema which is chronic. Neuro: Cranial nerves 2 through 12 intact grossly. No focal neurological deficit. Speech is normal . Laboratory Data: H and H are 12.6 and 37.3. Assessment And Plan: A 58-year-old female with; 1.Lower gastrointestinal bleed. Patient has history of rectal fissure. She has been scoped by Dr. Arellano in the past approximately a year ago. Unfortunately, Dr. Arellano is out of town. No GI on michelle l. Hemoglobin continues to be stable. We will continue to monitor. Xarelto has been held due to th e bleed. 2.History of deep vein thrombosis of the right lower extremity. This was in March of 2018. Ermelinda olivas has been on Xarelto. She had a repeat ultrasound in September, which showed chronic thrombus. She soriano s not know whether hypercoagulable workup was performed. However, due to her chronic nature of deep vein thrombosis, her anticoagulation has been continued. Currently, the Xarelto is on hold due to he r gastrointestinal bleed. We will repeat ultrasound of the right lower extremity, to monitor status of her chronic deep vein thrombosis. 3.Morbid obesity. BMI of 49. 4.Gastroesophageal reflux disease without esophagitis. We will continue PPI. Plan: Unfortunately, no GI is available. The patient's primary GI is out of town. We will continue to monitor H and H. Hold Xarelto. If H and H are stable, and repeat Doppler shows continued chroni c DVT, we will resume Xarelto and have patient follow up outpatient with her primary GI. If hemoglob in drops, she may need to be transferred to outside facility that has GI capabilities. /NELLA Voice ID: [id number] Report ID: [id number]
[2018-12-23] MEDS: ACETAMINOPHEN 500 MG TAB PO PRN (12:30)
[2018-12-23] MEDS: hydroCHLOROthiazide 25 MG TAB PO SCH (12:30)
[2018-12-23] MEDS: AMLODIPINE 10 MG TAB PO SCH (12:31)
[2018-12-23] MEDS: carvediloL 25 MG TAB PO SCH (12:31)
[2018-12-23 17:41] LABS: Hematocrit 38.9 % (36.0-45.0)
--- NOTE | 2018-12-23 20:25 | EKG ---
Test Date: 2018-12-23 Test Time: 10:44:26 Cmo & President: [place] Mendoza MEASUREMENT RESULTS: Intervals: Rate: 59 OH: 150 QRSD: 86 QT: 446 QTc: 441 [place]: P: 17 OH: 150 QRS: -12 T: -1 INTERPRETIVE STATEMENTS: Sinus bradycardia Voltage criteria for left ventricular hypertrophy Abnormal ECG Compared to ECG 12/22/2018 22:56:00 Sinus rhythm no longer present Electronically Signed On 12-23-18 20:25:31 CDT by Kameron Nieto
--- NOTE | 2018-12-23 20:53 | RAD REPORT ---
EXAM DESCRIPTION: US - Extremity Venous Uni Ltd - 12/23/2018 8:33 pm CLINICAL HISTORY: Right leg pain and swelling, history of DVT COMPARISON: September 15, 2018 TECHNIQUE: Real-time sonographic evaluation of the right lower extremity deep venous systems was per formed. FINDINGS: Normal compressibility, flow augmentation, phasic flow and spontaneous flow are identified in the right lower extremity common femoral, superficial femoral, and posterior tibial veins. Chroni c thrombus is again noted in the right popliteal vein similar to the September examination. No intralumina l filling defects seen. IMPRESSION: No acute deep venous thrombosis seen. Chronic thrombus in the right popliteal vein is pr esent similar to September imaging.
[2018-12-23 23:30] LABS: Hematocrit 35.9 % (36.0-45.0)
[2018-12-24] MEDS: METRONIDAZOLE 500mg IVPB 500 MG/100 ML BAG IV SCH ×2 (01:28→07:54)
[2018-12-24] MEDS ORDERED: Levofloxacin 750mg IV 750 MG/150 ML BAG IV SCH (05:00)
[2018-12-24 07:18] LABS: BUN Blood Urea Nitrogen 10 mg/dL (7-18); Bicarbonate 25 mmol/L (21-32); Glucose Level 160 mg/dL (74-106); Sodium Level 141 mmol/L (136-145)
[2018-12-24] MEDS: AMLODIPINE 10 MG TAB PO SCH (07:52)
[2018-12-24] MEDS: hydroCHLOROthiazide 25 MG TAB PO SCH (07:53)
[2018-12-24] MEDS: PANTOPRAZOLE 40MG TABLET PO SCH ×2 (07:53→15:51)
[2018-12-24] MEDS: carvediloL 25 MG TAB PO SCH (07:54)
[2018-12-24 08:00] VITALS: O2SAT 97
[2018-12-24] MEDS: ACETAMINOPHEN 500 MG TAB PO PRN (08:10)
[2018-12-24] MEDS ORDERED: VALSARTAN 160 MG TAB PO SCH (09:00)
[2018-12-24] MEDS ORDERED: RIVAROXABAN 20 MG TABLET PO SCH (09:20)
[2018-12-24 12:23] LABS: Hematocrit 37.9 % (36.0-45.0)
[2018-12-24 16:27] VITALS: BP 132/63; TEMP 97.8
--- NOTE | 2018-12-25 01:38 | DS ---
Date of Discharge: 12/24/2018 Consultants: None. Discharge Diagnoses: 1.Lower gastrointestinal bleed, resolved. 2.History of deep vein thrombosis, right lower extremity, chronic on Xarelto. 3.Gastroesophageal reflux disease without esophagitis on PPI. 4.Morbid obesity, body mass index of 49. 5.Hypertensive heart disease. 6.Essential hypertension, not well controlled. 7.History of rectal fissure. 8.Hypokalemia. 9.Hypomagnesemia. Hospital Course: Patient is a 58-year-old female with past medical history of DVT since March 019 on Xarelto, who came in with rectal bleed. 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 Patient has not seen GI since the patient's workup revealed a hemoglobin of 13. Serial H and H were obtained, remained around 12. 5 to 13. Patient did not have any further GI bleeding. Dr. Arellano was out of town, however, was rec ommended to follow up with him as an outpatient. Patient did have some mild electrolyte abnormalitie s, which were corrected. Patient overall did well. Her UA was negative. She did not have any growt h in her urine cultures. She did not have any repeat rectal bleeding since being in the hospital. H er hemoglobin had been stable. Her Xarelto was resumed as a repeat ultrasound showed chronic DVT in the right upper extremity. Patient will need to have further evaluation of this chronic DVT as an ou tpatient, however, needs to be continued on blood thinners to avoid possibility of emboli leading to PE. Patient seems to be stable in terms of her hemoglobin. No further rectal bleeding. Patient dennys l need outpatient GI followup. Patient was then cleared for discharge, she was sent home in a stable condition. Activity: As tolerated. Medications: As per medication reconciliation list. Followup: Follow up with primary care physician in 2-3 days. Follow up with MARLEN, Dr. Arellano within 1 week. Return to ER for worsening condition. Physical Examination: General: Awake, alert, oriented x3. Morbidly obese female, no acute distress. CV: S1-S2. Respiratory: Moving air well bilaterally. No wheezing or stridor. Gastrointestinal: Abdomen is soft, nontender, nondistended. Positive bowel sounds. Extremities: No clubbing, cyanosis, or edema. SA/MODL Voice ID: [id number] Report ID: [id number]
--- NOTE | 2018-12-25 11:47 | RAD REPORT ---
EXAM DESCRIPTION: CT - Abdomen Pelvis W Contrast - 12/23/2018 2:27 am CLINICAL HISTORY: Rectal bleeding and pain. COMPARISON: CT abdomen and pelvis with contrast 08/12/2017. TECHNIQUE: Axial CT imaging of the abdomen and pelvis performed with intravenous contrast. Reformatt ed coronal and sagittal images reviewed. A dose reduction technique was utilized with automated exposure control according to patient size. FINDINGS: Mild medial right lower lobe atelectasis. Heart is mildly enlarged. No pericardial fluid. The liver is decreased in attenuation due to mild fatty infiltration. The liver size is normal. Poste rior right hepatic 1.1 cm cyst. Normal gallbladder, spleen, pancreas, adrenal glands, and kidneys. No rmal aorta and inferior vena cava caliber. Mild aortic atherosclerosis. Mesenteric vessels appear nor mal. No adenopathy. There is a small hiatal hernia. Normal remaining stomach. Small bowel loops are normal in caliber. No rmal appendix within the right hemipelvis. Normal colon. No mesenteric adenopathy, ascites, or free a ir. Normal bladder. Uterus is surgically absent. Normal ovaries. No pelvic free fluid. Mild degenerative disc narrowing at L5-S1 with vacuum disc change. No subluxation. Intact bony pelvis. Normal hips. IMPRESSION: 1. No acute finding within the abdomen or pelvis to account for reported rectal bleeding . 2. Hepatic steatosis. 3. Small hiatal hernia. Electronically signed by: Vanessa Winston DO 12/23/2018 3:09 AM CDT Due to temporary technical issues with the PACS/Fluency reporting system, reports are being signed by the in house radiologist as a courtesy to ensure prompt reporting. The interpreting radiologist is f ully responsible for the content of the report.
--- OUTSIDE RECORDS SUMMARY | 2019-01-14 02:59 | XMS REPORT ---
:1960 [facility] Address [address] [place] [address] Care Team Providers Name Role Phone Unavailable Unavailable Unavailable Payers Payer Name Policy Type Policy Number Effective Date Expiration Date Problems This patient has no known problems. Allergies, Adverse Reactions, Alerts Allergy Name Allergy Status Severity Reaction(s) Onset Inactive Treating Comments Type Date Date Clinician sulfamethoxazol DA Active U 2018-03 e 03-08 00:00: 00 trimethoprim DA Active U 2018-03 00:00: 00 penicillin DA Active ME 2018-03 00:00: 00 sulfamethoxazol DA Active U e 03-07 00:00: 00 trimethoprim DA Active U 03-07 00:00: 00 penicillin DA Active ME 10-25 00:00: 00 Medications This patient has no known medications. Results Test Description Test Time Test Comments Text Results Atomic Results Result Comments - XR 2019-01-06 FAX: Jeet Weeks MD [phone] [place]: St: HIP 11:36:00 REG W/CHELLY Name: TANVI CARRANZA [place] FSED : UNI 1960 Age/S: 58/F Unit #: 2+V LT [id number] Loc: [facility] [place], [place] Phys: Brittany Anaya MD Acct : [id number] Dis Date: Status: REG ER PHONE #: Exam Date: 01/06/2019 1132 FAX #: Reason: left hip pain EXAMS: CPT CODE: [id number] XR HIP W/PEL UNI 2+[place] [id number] PELVIS AND LEFT HIP, 3 VIEWS: HISTORY: Left hip pain. COMPARISON EXAMS: None available. FINDINGS: The hip joint spaces are preserved and no acute fractures or focal bony abnormalities identified. Enthesopathy is identified from each iliac crest. Moderate lumbosacral degenerative disc disease and osteoarthritis is noted on one of the AP views. IMPRESSION: 1. No acute changes identified about the pelvis or left hip. 2. Moderate lumbosacral degenerative disc disease and osteoarthritis. 3. Chronic enthesopathy at the lateral iliac crests. 4. Limited visualization of bony detail due to body habitus. SL:01 at 1136 Reported and signed by: Shahbaz Cortes M.D. CC: Jeet Emanuel MD Technologist: RT Angela(R)(CT) Trnvtrd Date/Time/ By: 01/06/2019 (1136) : By: Michael Orig Print D/T: S: 2018 (2853) PAGE 1 Signed Report
== END 2018-12-24 18:40 | disposition home or self-care (01) ==
LOC: ER 21:58 → ERHOLD 12-23 01:34 → 4TH 12-23 04:44
PROVIDERS: ADMIT Internal Medicine; ATTEND Internal Medicine
DX: K92.1 Melena (principal); E87.6 Hypokalemia; E83.42 Hypomagnesemia; E66.01 Morbid (severe) obesity due to excess calories; Z68.42 Body mass index [BMI] 45.0-49.9, adult; I11.9 Hypertensive heart disease without heart failure; K21.9 Gastro-esophageal reflux disease without esophagitis; Z79.01 Long term (current) use of anticoagulants; Z86.718 Personal history of other venous thrombosis and embolism
CPT/HCPCS: 96365; 96367; 96368; 93005 ×2; 87088 ×2; 85025; 87086 ×2; 80048 ×2; 36415 ×2; 86900; 83735; 86850; 85610; 86901; 80076; 85018 ×5; 85014 ×5; 81003; 84484; 83690; 83880; 74177; 71045; 93971; 99285; Q9967; J3475; J7030 ×4; J0744; G0378 ×3

== ENCOUNTER 2019-03-07 22:27 | Emergency (ER) | payer OTHER ==
--- OUTSIDE RECORDS SUMMARY | 2019-03-07 22:29 | XMS REPORT ---
:1960 Author Organization [facility] Address [address] [place] [address] Care Team Providers Name Role Phone Unavailable Unavailable Unavailable Payers Payer Name Policy Type Policy Number Effective Date Expiration Date Problems This patient has no known problems. Allergies, Adverse Reactions, Alerts Allergy Name Allergy Status Severity Reaction(s) Onset Inactive Treating Comments Type Date Date Clinician sulfamethoxazol DA Active U 2018-03 00:00: 00 trimethoprim DA Active U 2018-03 00:00: 00 penicillin DA Active SC 2018-03 00:00: 00 sulfamethoxazol DA Active U 03-07 00:00: 00 trimethoprim DA Active U 03-07 00:00: 00 penicillin DA Active SC 10-25 00:00: 00 Medications This patient has no known medications. Encounters Start End Encounter Admission Attending Care Care Encounter Date/Time Date/Time Type Type Clinicians Facility Department ID 2019-03-01 2019-03-01 Outpatient [facility] MED [id number] 19:45:00 19:45:00 Results Test Description Test Time Test Comments Text Results Atomic Results Result Comments - XR 2019-01-06 FAX: Jeet Weeks MD [phone] [place]: St: HIP 11:36:00 REG W/PEL Name: TANVI CARRANZA [place] FSED : UNI 1960 Age/S: 58/F Unit #: 2+V LT [id number] Loc: [facility] [place], [place] Phys: Brittany Anaya MD Acct : [id number] Dis Date: Status: REG ER PHONE #: Exam Date: 01/06/2019 1132 FAX #: Reason: left hip pain EXAMS: CPT CODE: [id number] XR HIP W/PEL UNI 2+[place] [id number] PELVIS AND LEFT HIP, 3 VIEWS: HISTORY: [...] CC: Jeet Emanuel MD Technologist: RT Angela(R)(CT) Trnscrd Date/Time/ By: 01/06/2019 (1136) : By: Michael Orig Print D/T: S: 2018 (1140) PAGE 1 Signed Report
[2019-03-07] MEDS ORDERED: FAMOTIDINE 20 MG TAB ONE (22:44)
[2019-03-07] MEDS ORDERED: DIPHENHYDRAMINE 50 MG/ML VIAL ONE (22:44)
--- NOTE | 2019-03-07 23:42 | EDPHYS ---
Physician Documentation [facility] Name: Dori Cotter Age: 58 yrs Sex: Female : 1960 Arrival Date: 03/07/2019 Time: 22:29 Bed 13 Private MD: Jeet Emanuel T ED Physician Adrian Christianson HPI: 03/07 22:41 This 58 yrs old Black Female presents to ER via Unassigned with complaints of Allergic pkl Reaction. 22:41 The rash is located on the body diffusely. The rash can be described as urticarial. pkl Onset: The symptoms/episode began/occurred just prior to arrival. Associated signs and symptoms: Pertinent positives: itching. Historical: - Allergies: 22:54 Bactrim; ea 23:03 PENICILLINS; fc - Home Meds: 22:54 Coreg 25 mg Oral tab 1 tab daily [Active]; hydrochlorothiazide 25 mg Oral tab 1 tab ea once daily [Active]; Norvasc 10 mg Oral tab 1 tab once daily [Active]; Protonix 40 mg Oral TbEC 1 tab once daily [Active]; valsartan 160 mg Oral tab 1 tab once daily [Active]; Xarelto 20 mg Oral tab 1 tab once daily [Active]; - PMHx: 22:54 Hypertension; High Cholesterol; GERD; dvt- rt leg; Diabetes - NIDDM; ea - PSHx: 22:54 Skin Graft; Tubal ligation; Knee surgery; Hysterectomy; ea - Immunization history:: Adult Immunizations up to date. - Social history:: Smoking status: Patient/guardian denies using tobacco. - Ebola Screening: : No symptoms or risks identified at this time. ROS: 22:41 Eyes: Negative for injury, pain, redness, and discharge, ENT: Negative for injury, pkl pain, and discharge, Neck: Negative for injury, pain, and swelling, Cardiovascular: Negative for chest pain, palpitations, and edema, Respiratory: Negative for shortness of breath, cough, wheezing, and pleuritic chest pain, Abdomen/GI: Negative for abdominal pain, nausea, vomiting, diarrhea, and constipation, Back: Negative for injury and pain, : Negative for injury, bleeding, discharge, and swelling, MS/Extremity: Negative for injury and deformity. 22:41 Skin: Positive for rash, diffusely. 22:41 Neuro: Negative for altered mental status. Exam: 22:41 Head/Face: Normocephalic, atraumatic. Eyes: Pupils equal round and reactive to light, pkl extra-ocular motions intact. Lids and lashes normal. Conjunctiva and sclera are non-icteric and not injected. Cornea within normal limits. Periorbital areas with no swelling, redness, or edema. ENT: Nares patent. No nasal discharge, no septal abnormalities noted. Tympanic membranes are normal and external auditory canals are clear. Oropharynx with no redness, swelling, or masses, exudates, or evidence of obstruction, uvula midline. Mucous membranes moist. Neck: Trachea midline, no thyromegaly or masses palpated, and no cervical lymphadenopathy. Supple, full range of motion without nuchal rigidity, or vertebral point tenderness. No Meningismus. Chest/axilla: Normal chest wall appearance and motion. Nontender with no deformity. No lesions are appreciated. Cardiovascular: Regular rate and rhythm with a normal S1 and S2. No gallops, murmurs, or rubs. Normal PMI, no JVD. No pulse deficits. Respiratory: Lungs have equal breath sounds bilaterally, clear to auscultation and percussion. No rales, rhonchi or wheezes noted. No increased work of breathing, no retractions or nasal flaring. Abdomen/GI: Soft, non-tender, with normal bowel sounds. No distension or tympany. No guarding or rebound. No evidence of tenderness throughout. Back: No spinal tenderness. No costovertebral tenderness. Full range of motion. MS/ Extremity: Pulses equal, no cyanosis. Neurovascular intact. Full, normal range of motion. Neuro: Awake and alert, GCS 15, oriented to person, place, time, and situation. Cranial nerves II-XII grossly intact. Motor strength 5/5 in all extremities. Sensory grossly intact. Cerebellar exam normal. Normal gait. 22:41 Skin: rash can be described as urticarial, and is diffusely located. Vital Signs: 22:30 BP 152 / 104; Pulse 89; Resp 18; Temp 98.0(O); Pulse Ox 98% on R/A; Weight 115.67 kg fc (R); Height 5 ft. 2 in. (157.48 cm) (R); Pain 0/10; 02 00:38 BP 188 / 100; Pulse 79; Resp 18; Temp 98; Pulse Ox 98% on R/A; Pain 0/10; 03/07 22:30 Body Mass Index 46.64 (115.67 kg, 157.48 cm) fc MDM: 03/07 22:34 Patient medically screened. pkl 23:40 Data reviewed: vital signs, nurses notes. pkl 03/07 22:55 Order name: Glucose, Ancillary Testing; Complete Time: 23:39 EDGA 03/07 22:39 Order name: Accucheck Blood Glucose; Complete Time: 22:49 pkl Administered Medications: 22:49 Drug: Pepcid 20 mg Route: PO; ea 23:54 Follow up: Response: No adverse reaction; Marked relief of symptoms 22:50 Drug: Benadryl 50 mg Route: IM; Site: right gluteus; ea 23:54 Follow up: Response: No adverse reaction; Marked relief of symptoms 03/08 00:01 CANCELLED (changed to Atarax): Benadryl 50 mg PO once 00:02 Drug: Atarax 50 mg Route: PO; 00:37 Follow up: Response: No adverse reaction; Marked relief of symptoms Point of Care Testing: Blood Glucose: 03/07 22:43 Blood Glucose: 360 mg/dL; Ranges: Critical Glucose Levels:Adult <50 mg/dl or >400 mg/dl <40 mg/dl or >180 mg/dl Disposition: 03/07/19 23:41 Discharged to Home. Impression: Urticaria. Uncontrolled diabetes. - Condition is Stable. - Medication Reconciliation Form, Thank You Letter, Antibiotic Education, Prescription Opioid Use form. - Follow up: Jeet Emanuel MD; When: 2 - 3 days; Reason: Re-evaluation by your physician. - Problem is new. - Symptoms have improved. Signatures: Dispatcher [employer] EDGA Adrian Christianson MD MD Kelly Huber RN RN Kenya Crook RN RN ea Corrections: (The following items were deleted from the chart) 03/08 00:01 03/07 23:40 Benadryl 50 mg PO once ordered. pkl 03/08 00:43 03/07 23:41 03/07/2019 23:41 Discharged to Home. Impression: Urticaria. Uncontrolled fc diabetes. Condition is Stable. Forms are Medication Reconciliation Form, Thank You Letter, Antibiotic Education, Prescription Opioid Use. Follow up: Jeet Emanuel; When: 2 - 3 days; Reason: Re-evaluation by your physician. Problem is new. Symptoms have improved. pkl
--- NOTE | 2019-03-07 23:42 | ER ---
Nurse's Notes [facility] Name: Dori Cotter Age: 58 yrs Sex: Female : 1960 Arrival Date: 03/07/2019 Time: 22:29 Bed 13 Private MD: Jeet Emanuel T Diagnosis: Urticaria. Uncontrolled diabetes Presentation: 03/07 22:30 Presenting complaint: Patient states: that she is having allergic reaction to her new insulin that she started on the .. States that she is having whelp to both arms and chest. She is also itching all over. Transition of care: patient was not received from another setting of care. Onset: The symptoms/episode began/occurred gradually. Anaphylaxis evaluation, no signs or symptoms of anaphylaxis were noted. Onset of symptoms was March 07, 2019 at 20:30. Risk Assessment: Do you want to hurt yourself or someone else? Patient reports no desire to harm self or others. Initial Sepsis Screen: Does the patient meet any 2 criteria? No. Patient's initial sepsis screen is negative. Does the patient have a suspected source of infection? No. Patient's initial sepsis screen is negative. Care prior to arrival: None. 22:30 Method Of Arrival: Ambulatory 22:30 Acuity: RANDI 4 fc Historical: - Allergies: 22:54 Bactrim; ea 23:03 PENICILLINS; fc - Home Meds: 22:54 Coreg 25 mg Oral tab 1 tab daily [Active]; hydrochlorothiazide 25 mg Oral tab 1 tab ea once daily [Active]; Norvasc 10 mg Oral tab 1 tab once daily [Active]; Protonix 40 mg Oral TbEC 1 tab once daily [Active]; valsartan 160 mg Oral tab 1 tab once daily [Active]; Xarelto 20 mg Oral tab 1 tab once daily [Active]; - PMHx: 22:54 Hypertension; High Cholesterol; GERD; dvt- rt leg; Diabetes - NIDDM; ea - PSHx: 22:54 Skin Graft; Tubal ligation; Knee surgery; Hysterectomy; ea - Immunization history:: Adult Immunizations up to date. - Social history:: Smoking status: Patient/guardian denies using tobacco. - Ebola Screening: : No symptoms or risks identified at this time. Screenin:50 Abuse screen: Denies threats or abuse. Nutritional screening: No deficits noted. ea Tuberculosis screening: No symptoms or risk factors identified. Fall Risk None identified. Assessment: 22:56 General: Appears in no apparent distress. Behavior is calm, cooperative, appropriate ea for age. Pain: Denies pain. Neuro: Level of Consciousness is awake, alert, obeys commands, Oriented to person, place, time. Cardiovascular: Patient's skin is warm and dry. Respiratory: Airway is patent Respiratory effort is even, unlabored, Respiratory pattern is regular, symmetrical. Derm: Skin is pink, warm \T\ dry. 03/08 00:40 Reassessment: Pt states that she is doing better. States that her bp is so high due to fc her not taking her medication today. Will take as soon as she gets home. Vital Signs: 03/07 22:30 BP 152 / 104; Pulse 89; Resp 18; Temp 98.0(O); Pulse Ox 98% on R/A; Weight 115.67 kg fc (R); Height 5 ft. 2 in. (157.48 cm) (R); Pain 0/10; 03/08 00:38 BP 188 / 100; Pulse 79; Resp 18; Temp 98; Pulse Ox 98% on R/A; Pain 0/10; 03/07 22:30 Body Mass Index 46.64 (115.67 kg, 157.48 cm) fc ED Course: 03/07 22:29 Patient arrived in ED. es 22:29 Jeet Emanuel MD is Private Physician. es 22:34 Adrian Christianson MD is Attending Physician. pkl 22:39 Kenya Crook RN is Primary Nurse. ea 22:50 Arm band placed on right wrist. Patient placed in an exam room, on a stretcher, on ea pulse oximetry. 22:50 Patient has correct armband on for positive identification. Bed in low position. Call ea light in reach. Side rails up X2. 22:57 Triage completed. fc 23:40 Jeet Emanuel MD is Referral Physician. pkl 03/08 00:42 No provider procedures requiring assistance completed. Patient did not have IV access fc during this emergency room visit. Administered Medications: 03/07 22:49 Drug: Pepcid 20 mg Route: PO; ea 23:54 Follow up: Response: No adverse reaction; Marked relief of symptoms fc 22:50 Drug: Benadryl 50 mg Route: IM; Site: right gluteus; ea 23:54 Follow up: Response: No adverse reaction; Marked relief of symptoms 03/08 00:01 CANCELLED (changed to Atarax): Benadryl 50 mg PO once 00:02 Drug: Atarax 50 mg Route: PO; fc 00:37 Follow up: Response: No adverse reaction; Marked relief of symptoms fc Point of Care Testing: Blood Glucose: 03/07 22:43 Blood Glucose: 360 mg/dL; fc Ranges: Outcome: 23:41 Discharge ordered by . ji 03/08 00:42 Discharged to home ambulatory, with family. fc Condition: good Discharge instructions given to patient, family, Instructed on discharge instructions, follow up and referral plans. medication usage, Demonstrated understanding of instructions, follow-up care, medications, Prescriptions given X 1. 00:43 Patient left the ED. fc Signatures: Adrian Christianson MD MD pkl Salyer, Edna es Chretien, Felicia, RN RN Kenya Crook RN RN ea
[2019-03-07] MEDS ORDERED: hydrOXYzine HCL 25 MG TAB ONE (23:59)
[2019-03-08 00:57] VITALS: O2SAT 98
[2019-03-08 00:59] VITALS: BP 188/100; TEMP 98
== END 2019-03-08 00:43 | disposition home or self-care (01) ==
LOC: ER 22:27
DX: R21 Rash and other nonspecific skin eruption (principal); I10 Essential (primary) hypertension; E78.00 Pure hypercholesterolemia, unspecified; E11.9 Type 2 diabetes mellitus without complications; Z88.0 Allergy status to penicillin; Z88.1 Allergy status to other antibiotic agents
CPT/HCPCS: 82947; 96372; 99283; J1200

== ENCOUNTER 2019-11-15 12:23 | Emergency (ER) | payer OTHER ==
--- OUTSIDE RECORDS SUMMARY | 2019-11-15 12:37 | XMS REPORT | Continuity of Care Document ---
:1960 Author Organization [facility] [place] Information [place]elle Care Team Providers Name Role Phone [facility] Information Springer Unavailable Un available Problems Problem Status Onset Classification Date Comments Sourc e Date Reported HYPERGYCEMIA, NEW Active 03/01/20 Me morial ONSET TYPE 2 19 [facility]iss DIABETES NEW ONSET DIABETES Active 03/01/20 [facility] [place] Hypertensive heart 05/27/19 08/26/2017 [place] disease with heart 18 H ospital failure 724.2 - LUMBAGO Active 03/06/20 O PID 14 [place] Backache (finding) Active Problem 03/04/2019 [facility] Carpal tunnel Active Problem 03/04/2019 Misch er syndrome Neuro, (disorder) [place] Hypertensive Active Problem 03/04/2019 Mische r disorder, systemic N euro, arterial [facility] (disorder) [facility] Hyperlipidemia Active Problem 03/04/2019 Misc her (disorder) Neuro,[facility] Morbid obesity Active Problem 03/04/2019 Misc her (disorder) [facility] Neck pain Active Problem 03/04/2019 [facility] (finding) [facility] Neuropathy of Active Problem 03/04/2019 Misch er lower limb Neuro, (disorder) [place] Paresthesia Active Problem 03/04/2019 [facility] (finding) [facility] Type II diabetes Active Problem 03/04/[address] [facility] mellitus uncontrolled (finding) Acute on chronic 08/26/2017 [facility] Hospital (congestive) heart failure Pneumonia, 08/26/2017 [facility] unspecified [facility] organism Morbid (severe) 08/26/2017 [facility] obesity with Hospita l alveolar hypoventilation Hypertensive 08/26/2017 [facility] emergency Hospital Hyperlipidemia, 08/26/2017 [facility] unspecified Hospital Body mass index 08/26/2017 [place] (BMI) 50-59.9 , Hosp ital adult HYPERGLYCEMIA, Active Memor ial UNSPECIFIED [place] TYPE 2 DIABETES Active Khai rial MELLITUS WITHOUT Her [place] COMPLIC HYPOVOLEMIA Active [facility] Medications Medication Details Route Status Patient Ordering Order Source Instructions Provider Date atorvastatin Notes: (Same Inactive As: Lipitor) 2019 [place] 3 ML Insulin 15 unit, Active Glargine 100 UNT/ML SUB-Q, Daily, 2019 [place] Prefilled Syringe # 10 mL, 0 [Lantus] Refill(s), Pharmacy: [facility]/pharmacy #[id number] insulin lispro 100 2 unit, SUB-Q, Active units/mL injectable TID-Before 2019 [place] solution Meals, # 10 mL, 0 Refill(s), Pharmacy: [facility]/pharmacy #[id number] Insulin Syringes (U 1 syr, SUB-Q, Active 100) ONCALL, # 100 2019 [place] syr, 0 Refill(s), Pharmacy: [facility]/pharmacy #[id number] Insulin 1 ea, MISC, Active Needle/Syringe Daily, # 100 2019 [place] Combo Misc/Other ea, 3 Refill(s), Pharmacy: [facility]/pharmacy #[id number] Accu-Chek Alysa , # 1 ea, Active Blood Glucose Meter Insulin 2019 [place] dependent, Does not use insulin pump, Last DM eval date 03/02/19, 0 Refill(s), Pharmacy: [facility]/pharmacy #[id number] Accu-Chek Alysa , # 100 ea, Active Plus Blood Glucose Insulin 2019 [place] and Test Strips dependent, Does not use insulin pump, Last DM eval date 03/02/19, 3 Refill(s), Pharmacy: [facility]/pharmacy #[id number] Accu-Chek FastClix , # 1 ea, Active Lancets Device Insulin 2019 [place] dependent, Does not use insulin pump, Last DM eval date 03/02/19, 0 Refill(s), Pharmacy: [facility]/pharmacy #[id number] Accu-Chek Softclix , # 1 ea, Active Lancets Device Insulin 2019 [place] dependent, Does not use insulin pump, Last DM eval date 03/02/19, 0 Refill(s), Pharmacy: [facility]/pharmacy #[id number] Amlodipine Notes: (Same Inactive as: Norvasc) 2019 [place] Aspirin 81 MG Notes: Do not Inactive Enteric Coated crush or chew. 2019 [place] Tablet (Same As: Ecotrin) carvedilol Notes: Give Inactive with food. 2019 [place] (Same As: Coreg) Xarelto Notes: (Same Inactive as: Xarelto) 2019 [place] Pepcid 20 mg, Route: Inactive IVP, Drug 2019 [place] form: INJ, Q12H, Dosing Weight 114.091, kg, Start date: 03/02/19 9:00:00 [employer]ICK [employer], Duration: 30 day, Stop date: 03/31/19 21:00:00 [employer] Pepcid Notes: (Same Inactive as: Pepcid) 2019 [place] Can be dilute in 5-10cc NS IVP: Slow IV push over at least 2 minutes. Insulin Glargine Notes: (Same Inactive H 100 UNT/ML as: Lantus) Do 2019 [place] Injectable Solution not hold [Lantus] insulin without contacting prescriber WASTE: F/P - Black; E - Municipal Trash Bin "single patient use only" Stable for 28 days at room temperature Expires in days from Date Dextrose 50% 25 mL, Route: Inactive Syringe (D50W) IVP, Dosing 2019 [place] and Weight 114.091, kg, PRN, PRN Blood Glucose Results, Start date: 03/01/19 20:19:00 [employer]ICK [employer], Duration: 30 day, Stop date: 03/31/19 20:18:00 [employer] Glucagon 1 mg, Route: Inactive IM, PRN, 2019 [place] Dosing Weight 114.091, kg, PRN Blood Glucose Results, Start date: 03/01/19 20:19:00 [employer]ICK [employer], Duration: 30 day, Stop date: 03/31/19 20:18:00 [employer] Bisacodyl Notes: (Same No Longer As: Dulcolax, Active 2019 [place] Bisco-Lax) Ondansetron Notes: (Same No Longer as: Zofran) Active 2018 [place] MEDICATION WASTE Product Size: 4 mg Product Wasted: ___ mg Melatonin Notes: (Same No Longer as: Melatonin) Active 2018 [place] Acetaminophen Notes: Do not No Longer exceed 4 Active 2018 [place] gm/day. (Same as: Tylenol) Potassium Chloride Notes: (Same No Longer as: K-Dur 20) Active 2018 [place] "Do Not Crush" Give with food and full glass of water For patients unable to swallow tablet, dissolve in one half glass of water. Allow about 2 minutes for the tablets to disintegrate. Stir before giving to prepare slurry and administer. Please exclude Patient’ s with feeding tube less than 14 [place] (Dobhoff, J-tube etc) and pediatric and patients. potassium Notes: (Same No Longer phosphate-sodium as: Phos-NaK) Active 2018 [place] phosphate 250 Each 1.5 gm mg-280 mg-160 mg pkt has 250mg oral powder for phosphorous. reconstitution Mix w/2.5oz water and stir. potassium phosphate Notes: (Same No Longer 03/02 as: K Active 2018 [place] Phosphate.) Do not infuse phosphorous concurrently in the same line as TPN or IVF that contains calcium. For double lumen central lines, phosphorous may be infused in a separate lumen from TPN. 1 mMol phoshate has 1.47 mEq potassium Infuse over 4 hours sodium phosphate Notes: Infuse No Longer over 4 hour. Active 2018 [place] Do not infuse phosphorous concurrently in the same line as TPN or IVF that contains calcium. For double lumen central lines, phosphorous may be infused in a separate lumen from TPN. Magnesium Sulfate Notes: WASTE: No Longer F/P - Sink; E Active 2018 [place] - Municipal Trash Bin Magnesium Oxide Notes: (Same No Longer H as: Mag-Ox Active 2018 [place] 400) Magnesium oxide [id number] elemental magnesium Dose=____mg magnesium oxide (___mg elemental magnesium) Calcium Gluconate Notes: WASTE: No Longer F/P - Sink; E Active 2019 [place] - Municipal Trash Bin Dextrose 50% 12.5 gm, 25 No Longer Syringe (D50W) mL, Route: Active 2018 [place] IVP, Drug Form: INJ, Dosing Weight 114.091, kg, PRN, PRN Blood Glucose Results, Start date: 03/01/19 20:18:00 [employer]ICK [employer], Duration: 30 day, Stop date: 03/31/19 20:17:00 [employer], 0 Glucagon 1 mg, Route: No Longer IM, Drug form: Active 2019 [place] PDR/INJ, PRN, Dosing Weight 114.091, kg, PRN Blood Glucose Results, Start date: 03/01/19 20:18:00 [employer]ICK [employer], Duration: 30 day, Stop date: 03/31/19 20:17:00 [employer]ICK [employer], 0 Insulin Lispro Notes: (Same No Longer as: Humalog) Active 2019 [place] Roll in palms of hands gently; Do not shake vigorously. WASTE: F/P - Black; E - Municipal Trash Bin Stable for 28 days at room temperature. Expires in days from Date Tramadol Notes: Not to No Longer exceed Active 2018 [place] 400mg/day. (Same As: Ultram) Morphine 1 mg, 0.5 mL, No Longer Route: IVP, Active 2018 [place] Drug form: SOLN, Q4H, Dosing Weight 114.091, kg, PRN Pain Score 7-10, Start date: 03/01/19 20:17:00 [employer]ICK [employer], Duration: 5 day, Stop date: 03/06/19 20:16:00 DERRICK [employer]NER, 0 LR IV 1,000 mL 1,000 mL, No Longer Rate: 75 Active 2019 [place] ml/hr, Infuse over: 13.3 hr, Route: IV, Dosing Weight 114.091 kg, Total Volume: 1,000, Start date: 03/01/19 20:15:00 [employer]ICK [employer], Duration: 30 day, Stop date: 03/31/19 20:14:00 [employer]ICK [employer]NER, 2.28, m2, 0 Hydrochlorothiazide 25 mg, PO, Active 03/02/ H Daily, 0 2019 [place] Refill(s) carvedilol 25 mg, PO, No Longer Daily, 0 Active 2019 [place] Refill(s) rivaroxaban 20 MG 20 mg = 1 tab, Active Oral Tablet PO, Daily, # 2019 [place] [Xarelto] 30 tab, 3 Refill(s) spironolactone 25 25 mg = 1 tab, No Longer 05/20 [place] mg oral tablet PO, Daily, # Active 2018 Hosp ital 30 tab, 1 Refill(s), Pharmacy: [facility]/pharmacy #[id number] potassium chloride 20 mEq = 1 No Longer Amna 20 mEq oral tablet, tab, PO, Active 2018 Hos pital extended release Daily, Take while you are on Hydrochlorothi azide, # 30 tab, 1 Refill(s), Pharmacy: [facility]/pharmacy #[id number] Hydrochlorothiazide 25 mg = 1 tab, Active 05/20 [place] 25 MG Oral Tablet PO, Daily, # 2018 H ospital 30 tab, 1 Refill(s), Pharmacy: [facility]/pharmacy #[id number] Famotidine 20 MG 20 mg = 1 tab, No Longer [place] Oral Tablet PO, BID, # 60 Active 2018 Hospit al [Pepcid] tab, 0 Refill(s), Pharmacy: [facility]/pharmacy #[id number] doxycycline hyclate 100 mg = 1 No Longer Am[place] 100 MG Oral Capsule cap, PO, Active 2018 Hos pital [id number], # 10 caplet, 0 Refill(s), Pharmacy: [facility]/pharmacy #[id number] losartan 100 mg 100 mg = 1 Active Ka ty oral tablet tab, PO, 2018 Hospital Daily, # 30 tab, 1 Refill(s), Pharmacy: [facility]/pharmacy #[id number] carvedilol 25 mg 25 mg = 1 tab, Active [place] oral tablet PO, BID, # 60 2018 Hospit al tab, 1 Refill(s), Pharmacy: [facility]/pharmacy #[id number] atorvastatin 10 mg 20 mg = 2 tab, Active [place]na oral tablet PO, Bedtime, # 2018 Hospi nan 30 tab, 1 Refill(s), Pharmacy: [facility]/pharmacy #[id number] amLODIPine 10 mg 10 mg = 1 tab, Active [place]na oral tablet PO, Daily, # 2018 Hospita l 30 tab, 1 Refill(s), Pharmacy: [facility]/pharmacy #[id number] Coreg Notes: Give No Longer Amna with food. Active 2018 Hospital (Same As: Coreg) Hydrochlorothiazide Notes: (Same No Longer 05/19 [place] as: Active 2018 Hospital Hydrodiuril) With food. Aldactone Notes: (Same No Longer Am[place] As: Aldactone) Active 2018 Hospital Norvasc Notes: (Same No Longer [place] as: Norvasc) Active 2018 Hospital Potassium Chloride Notes: (Same No Longer Am[place] as: K-Dur 20) Active 2018 Hospital "Do Not Crush" With food and full glass of water Coreg Notes: Give No Longer Amna with food. Active 2018 Hospital (Same As: Coreg) Potassium Chloride 20 mEq, Route: Inactive 05/18 [place] PO, Drug form: 2018 Hospital ERTAB, BID, Dosing Weight 124.545, kg, Start date: 05/18/17 17:00:00 CDT, Duration: 30 day, Stop date: 06/17/17 9:00:00 CDT sodium phosphate 15 mmol, 5 mL, No Longer [place] Route: IVPB, Active 2018 Hospital PRN, Dosing Weight 124.545, kg, PRN Abnormal Lab Result, For NON-ICU Patients Only., Start date: 05/18/17 15:07:00 CDT, Duration: 30 day, Stop date: 06/17/17 15:06:00 CDT potassium phosphate Notes: (Same No Longer 05/18 [place] as: K Active 2018 Hospital Phosphate.) 1 mMol phoshate has 1.47 mEq potassium Infuse over 4 hours Magnesium Sulfate Notes: WASTE: No Longer Amna F/P - Sink; E Active 2018 Hospital - Municipal Trash Bin Potassium Chloride Notes: (Same No Longer Amna as: K-Dur 20) Active 2018 Hospital "Do Not Crush" With food and full glass of water potassium Notes: (Same No Longer Amna phosphate-sodium as: Phos-NaK) Active 2018 H ospital phosphate 250 Each 1.5 gm mg-280 mg-160 mg pkt has 250mg oral powder for phosphorous. reconstitution Mix w/2.5oz water and stir. Calcium Gluconate Notes: WASTE: No Longer Amna F/P - Sink; E Active 2018 Hospital - Municipal Trash Bin Magnesium Oxide Notes: (Same No Longer H [place] as: Mag-Ox Active 2018 Hospital 400) Magnesium oxide [id number] elemental magnesium Dose=____mg magnesium oxide (___mg elemental magnesium) Rocephin Notes: (Same No Longer [place] As: Rocephin). Active 2018 Hospital Use with 100 mL NS and infuse over 30 min MEDICATION WASTE Product Size: 1000 mg Product Wasted: _0__ mg Clonidine Notes: (Same No Longer Amna Hydrochloride 0.1 As: Catapres) Active 2018 Hospital MG Oral Tablet amLODIPine Notes: (Same Inactive [place] as: Norvasc) 2018 Hospital multivitamin Notes: (Same No Longer K aty as:Thera) Active 2018 Hospital WASTE: F/P - Black; E - Municipal Trash Bin Take with food. Losartan Notes: (Same No Longer Amna as: Cozaar) Active 2018 Hospital Glucosamine 1,500 mg, No Longer Amna Route: PO, Active 2018 Hospital Daily, Dosing Weight 124.545, kg, Start date: 05/18/17 9:00:00 CDT, Duration: 30 day, Stop date: 06/16/17 9:00:00 CDT Jim Notes: (Same Inactive [place] as: Norvasc) 2018 Hospital Doxycycline Notes: (Same No Longer Ka ty as: Active 2018 Hospital Vibramycin) No milk/antacids/ iron. Coreg Notes: Give No Longer Amna with food. Active 2018 Hospital (Same As: Coreg) Saline Flush 0.9% Notes: (Same No Longer [facility] as: BD Active 2018 Hospital Posiflush) atorvastatin Notes: (Same No Longer K aty As: Lipitor) Active 2018 Hospital Doxycycline Notes: (Same Inactive Jackie y as: 2018 Hospital Vibramycin) Saline Flush 0.9% Notes: (Same No Longer Amna as: BD Active 2018 [facility] Posiflush) Nystatin 100 UNT/MG Notes: (Same No Longer 05/17 [place] Topical Powder as:Mycostatin, Active 2018 [facility] Nilstat) For external use only. sodium phosphate 30 mmol, 10 No Longer H Amna mL, Route: Active 2018 [facility] IVPB, PRN, Dosing Weight 124.545, kg, PRN Abnormal Lab Result, Start date: 05/17/17 18:50:00 CDT, Duration: 30 day, Stop date: 06/16/17 18:49:00 CDT, FOR ICU USE ONLY Potassium Chloride Notes: Infuse No Longer 05/17 [place] at a rate of [address] 10 mEq/hr. (Same as: KCL) potassium phosphate Notes: (Same No Longer 05/17 [place] as: K Active 2018 [facility] Phosphate.) 1 mMol phoshate has 1.47 mEq potassium Infuse over 4 hours potassium Notes: (Same No Longer Amna phosphate-sodium as: Phos-NaK) Active 2017 ospital phosphate 250 Each 1.5 gm mg-280 mg-160 mg pkt has 250mg oral powder for phosphorous. reconstitution Mix w/2.5oz water and stir. Calcium Gluconate Notes: WASTE: No Longer Amna F/P - Sink; E Active 2018 [facility] Tra Bin Magnesium Sulfate Notes: WASTE: No Longer Amna F/P - Sink; E Active 2018 [facility] Bin Magnesium Oxide Notes: (Same No Longer H [place] as: Mag-Ox Active 2018 [facility] 400) Magnesium oxide [id number] elemental magnesium Dose=____mg magnesium oxide (___mg elemental magnesium) Calcium Carbonate Notes: (Same No Longer Amna 500 MG Chewable As: Tums) Active 2018 Hospit al Tablet Calcium Carbonate 500 mg = 200 mg elemental calcium Dose = mg calcium carbonate ( mg elemental calcium) Singulair Notes: (Same No Longer Amna as:Singulair) Active [facility] Famotidine 20 MG Notes: (Same No Longer Amna Oral Tablet as: Pepcid) Active 2018 Hospital [Pepcid] Protonix Notes: Tablet Inactive Amna should not be 2018 Hospital chewed or crushed. (Same as: Protonix) Lovenox Notes: (Same No Longer Amna as: Lovenox) Active [facility] Lovenox 40 mg, Route: Inactive [place] SUB-Q, Drug 2018 Hospital form: INJ, Daily, Dosing Weight 124.545, kg, Priority: STAT, Start date: 05/17/17 15:38:00 CDT, Duration: 30 day, Stop date: 06/16/17 9:00:00 CDT morphine Sulfate Notes: (Same No Longer Amna as:MORPhine Active [address] [place] [address] Sulfate) Morphine 2 mg, Route: Inactive Amna IVP, Q4H, 2018 Hospital Dosing Weight 124.545, kg, PRN Pain Score 7-10, Start date: 05/17/17 11:59:00 CDT, Duration: 30 day, Stop date: 06/16/17 11:58:00 CDT Acetaminophen Notes: Do not No Longer Amna exceed [address] [place] [address] Hospital gm/day. (Same as: Tylenol) Ondansetron Notes: (Same No Longer Ka ty as: Zofran) Active [facility] Hospital MEDICATION WASTE Product Size: 4 mg Product Wasted: 0 mg methylPREDNISolone Notes: (Same Inactive Amna SODium SUCCinate as:Solu-MEDROL [address] [place] [address] , A-Methapred) Doxycycline 100 mg, Route: Inactive K aty IV, BID, 2018 Hospital Dosing Weight 124.545, kg, Priority: NOW, Start date: 05/17/17 11:58:00 CDT, Duration: 30 day, Stop date: 06/16/17 9:00:00 CDT Aspirin 325 MG Notes: (Do Not No Longer Amna Enteric Coated Crush) Do not Active [facility] Ho spital Tablet crush or chew. Lasix Notes: (Same No Longer as: Lasix) Active 2018 Hospital MEDICATION WASTE Product Size: 40 mg Product Wasted: 0 mg Protonix 40 mg, PO, Active [facility] Daily 2018 Hospital carvedilol 3.13 MG 3.125 mg = 1 No Longer Amna Oral Tablet [Coreg] tab, PO, BID Active 2018 Hospital Losartan 50 mg, PO, No Longer Amna Daily Active 2018 Hospital Aspirin 81 mg, PO, No Longer Amna Daily Active 2018 Hospital multivitamin 1 tab, PO, Active [place] Daily, 2018 Hospital Nonformulary "More Vitamin" brand per patient Glucosamine 1,500 mg, PO, No Longer K aty Daily Active 2018 Hospital Norvasc 5 mg, PO, No Longer Am[facility] Daily Active 2018 Hospital Singulair 10 mg, PO, No Longer Am[place] Daily Active 2018 Hospital atorvastatin 10 mg, PO, No Longer Jackie y Daily Active 2018 Hospital Morphine Notes: (Same Inactive as:MORPhine 2018 Hospital Sulfate) Tylenol Notes: Max Inactive acetaminophen 2018 Hospital 4000 mg/day (4 gm/day). (Same as: Tylenol Extra Strength) cefTRIAXone + Notes: (Same Inactive K at sterile water 10 mL As: Rocephin). 2018 Hospital Use with 100 mL NS and infuse over 30 min MEDICATION WASTE Product Size: 1000 mg Product Wasted: ___ mg Doxycycline Notes: (Same Inactive Jackie y as: 2018 Hospital Vibramycin) Rocephin 1 gm, Route: Inactive y IVPB, Drug 2018 Hospital form: PDR/INJ, ONCE, Dosing Weight 124.545, kg, Priority: STAT, Start date: 05/17/17 9:58:00 CDT, Stop date: 05/17/17 9:58:00 CDT, ABX Indication: Pneumonia Nicardipine Notes: Same No Longer Jackie y as: Cardene Active 2018 Hospital Concentration: (0.2 mg /1 ml ) BD Normal Saline Notes: (Same No Longer Amna Flush as: BD Active 2018 Hospital Posiflush) Labetalol Notes: (Same Inactive [place]na as: Normodyne, 2018 Hospital Trandate) Push over 2 minutes Give bolus over 2-3 minutes. Allergies, Adverse Reactions, Alerts Substance Category Reaction Severity Reaction Status Date Comments S ource type Reported Bactrim<sup Assertion Drug rash, Drug Active Occurre d MH >1</sup> NOS allergy February [place] 2016, rash to abdomen Immunizations No Data Provided for This Section Results Order Name Results Value Reference Date Interpretation Comments Deandra rce Range CHEM PANEL Glucose Lvl 201 70 - 99 03/02 [place] CHEM PANEL BUN 11 7 - 22 03/02 [place] CHEM PANEL Creatinine 0.89 0.50 - 03/02 MH Lvl 1.40 [place] CHEM PANEL Sodium Lvl 140 135 - 145 03/02 [place] CHEM PANEL Potassium Lvl 3.2 3.5 - 5.1 03/02 [place] CHEM PANEL Chloride Lvl 103 95 - 109 03/02 [place] CHEM PANEL CO2 30 24 - 32 03/02 [place] CHEM PANEL AGAP 10.2 10.0 - 03/02 MH 20.0 [place] CHEM PANEL Calcium Lvl 8.8 8.5 - 10.5 03/02 [place] CHEM PANEL B/C Ratio 12 6 - 25 03/02 [place] CHEM PANEL Total Protein 6.4 6.4 - 8.4 03/02 [place] CHEM PANEL Albumin Lvl 2.6 3.5 - 5.0 03/02 [place] CHEM PANEL Globulin 3.8 2.7 - 4.2 03/02 [place] CHEM PANEL A/G Ratio 0.7 0.7 - 1.6 03/02 [place] CHEM PANEL ALT 33 0 - 65 03/02 [place] CHEM PANEL AST 25 0 - 37 03/02 [place] CHEM PANEL Alk Phos 112 39 - 136 03/02 [place] CHEM PANEL Bili Total 0.5 0.2 - 1.3 03/02 [place] CHEM PANEL eGFR 71 03/02 Result Comment: The [place] eGFR is calculated using the CKD-EPI formula. In most young, healthy individuals the eGFR will be >90 mL/min/1.73m2 . The eGFR declines with age. An eGFR of 60-89 may be normal in some populations, particularly the elderly, for whom the CKD-EPI formula has not been extensively validated. Use of the eGFR is not recommended in the following populations:< br/>
Valentina viduals with unstable creatinine concentration s, including patients and those with serious co-morbid conditions.<b r/>
Patie nts with extremes in muscle mass or diet.

The data above are obtained from the National Kidney Disease Education Program (NKDEP) which additionally recommends that when the eGFR is used in patients with extremes of body mass index for purposes of drug dosing, the eGFR should be multiplied by the estimated BMI. CHEM PANEL Magnesium Lvl 1.9 1.8 - 2.4 03/02 [place] CHEM PANEL Phosphorus 2.9 2.5 - 4.5 03/02 [place] CHEM PANEL Lactic Acid 1.6 0.5 - 2.2 03/02 Lvl /2018 [place] HEMATOLOGY WBC 4.4 3.7 - 10.4 03/02 [place] HEMATOLOGY RBC 4.36 4.20 - 03/02 MH 5.40 /2018 [place] HEMATOLOGY Hgb 13.0 12.0 - 03/02 MH 16.0 [place] HEMATOLOGY Hct 38.6 36.0 - 03/02 MH 48.0 [place] HEMATOLOGY MCV 88.4 80.0 - 03/02 MH 98.0 [place] HEMATOLOGY MCH 29.8 27.0 - 03/02 MH 31.0 [place] HEMATOLOGY MCHC 33.7 32.0 - 03/02 MH 36.0 [place] HEMATOLOGY RDW 14.7 11.5 - 03/02 MH 14. [place] HEMATOLOGY Platelet 267 133 - 450 03/02 [place] HEMATOLOGY MPV 8.0 7.4 - 10.4 03/02 [place] HEMATOLOGY PT 17.6 12.0 - 03/02 MH 14.7 [place] HEMATOLOGY INR 1.43 0.85 - 03/02 MH 1.17 [place] HEMATOLOGY PTT 24.4 22.9 - 03/02 MH 35.8 /2019 [place] HEMATOLOGY Segs 37.8 45.0 - 03/02 MH 75.0 2019 [place] HEMATOLOGY Lymphocytes 44.9 20.0 - 03/02 MH 40.0 /2018 [place] HEMATOLOGY Monocytes 13.1 2.0 - 12.0 03/02 [place] HEMATOLOGY Eosinophils 3.6 0.0 - 4.0 03/02 [place] HEMATOLOGY Basophils 0.6 0.0 - 1.0 03/02 [place] HEMATOLOGY Neutrophils # 1.7 1.5 - 8.1 03/02 [place] HEMATOLOGY Lymphocytes # 2.0 1.0 - 5.5 03/02 [place] HEMATOLOGY Monocytes # 0.6 0.0 - 0.8 03/02 [place] HEMATOLOGY Eosinophils # 0.2 0.0 - 0.5 03/02 [place] CHEM PANEL Lactic Acid 2.1 0.5 - 2.2 03/02 Lvl [place] SPECIAL Hgb A1C 14.3 <=5.6 % 03/02 [place] CHEM PANEL Ketone 0.12 <=0.27 03/02 MH Quantitative mmol/L [place] CHEM PANEL Lactic Acid 3.0 0.5 - 2.2 03/02 Lvl [place] CHEM PANEL Magnesium Lvl 1.9 1.8 - 2.4 03/02 [place] CHEM PANEL Osmolality 308 280 - 300 03/02 [place] CHEM PANEL Phosphorus 2.5 2.5 - 4.5 03/02 [place] ELECTROLYTE AGAP 13.5 10.0 - 03/02 MH S 20.0 [place] ELECTROLYTE B/C Ratio 12 6 - 25 03/02 S [place] ELECTROLYTE Globulin 4.2 2.7 - 4.2 03/02 S [place] ELECTROLYTE A/G Ratio 0.7 0.7 - 1.6 03/02 S [place] ELECTROLYTE Sodium Lvl 138 135 - 145 03/02 S [place] ELECTROLYTE Potassium Lvl 3.5 3.5 - 5.1 03/02 S [place] ELECTROLYTE Chloride Lvl 99 95 - 109 03/02 S [place] ELECTROLYTE Glucose Lvl 370 70 - 99 03/02 S [place] ELECTROLYTE BUN 12 7 - 22 03/02 S [place] ELECTROLYTE CO2 29 24 - 32 03/02 [place] ELECTROLYTE Calcium Lvl 8.8 8.5 - 10.5 03/02 [place] ELECTROLYTE Albumin Lvl 2.9 3.5 - 5.0 03/02 [place] ELECTROLYTE Creatinine 1.04 0.50 - 03/02 S Lvl 1.40 [place] ELECTROLYTE ALT 31 0 - 65 03/02 [place] ELECTROLYTE AST 18 0 - 37 03/02 S [place] ELECTROLYTE eGFR 59 03/02 Comment: The [place] eGFR is calculated using the CKD-EPI formula. In most young, healthy individuals the eGFR will be >90 mL/min/1.73m2 . The eGFR declines with age. An eGFR of 60-89 may be normal in some populations, particularly the elderly, for whom the CKD-EPI formula has not been extensively validated. Use of the eGFR is not recommended in the following populations:< br/>
Valentina viduals with unstable creatinine concentration s, including patients and those with serious co-morbid conditions.<b r/>
Patie nts with extremes in muscle mass or diet.

The data above are obtained from the National Kidney Disease Education Program (NKDEP) which additionally recommends that when the eGFR is used in patients with extremes of body mass index for purposes of drug dosing, the eGFR should be multiplied by the estimated BMI. ELECTROLYTE Total Protein 7.1 6.4 - 8.4 03/02 [place] ELECTROLYTE Alk Phos 135 39 - 136 03/02 [place] ELECTROLYTE Bili Total 0.4 0.2 - 1.3 03/02 [place] HEMATOLOGY WBC 5.3 3.7 - 10.4 03/02 [place] HEMATOLOGY RBC 4.68 4.20 - 03/02 [facility] 5.40 [place] HEMATOLOGY Hgb 13.9 12.0 - 03/02 [facility] 16.0 [place] HEMATOLOGY Hct 41.5 36.0 - 03/02 [facility] 48.0 [place] HEMATOLOGY MCV 88.8 80.0 - 03/02 [facility] 98.0 /2018 [place] HEMATOLOGY MCH 29.7 27.0 - 03/02 [facility] 31.0 /2018 [place] HEMATOLOGY MCHC 33.5 32.0 - 03/02 MH 36.0 [place] HEMATOLOGY RDW 14.6 11.5 - 03/02 MH 14. [place] HEMATOLOGY Platelet 281 133 - 450 03/02 [place] HEMATOLOGY MPV 7.9 7.4 - 10.4 03/02 [place] HEMATOLOGY PTT 27.6 22.9 - 03/02 [facility] 35.8 /2018 [place] HEMATOLOGY PT 22.4 12.0 - 03/02 MH 14.7 [place] HEMATOLOGY INR 1.94 0.85 - 03/02 MH 1.17 [place] HEMATOLOGY Segs 41.8 45.0 - 03/02 [facility] 75.0 [place] HEMATOLOGY Lymphocytes 46.4 20.0 - 03/02 [facility] 40.0 [place] HEMATOLOGY Monocytes 9.0 2.0 - 12.0 03/02 [place] HEMATOLOGY Eosinophils 2.3 0.0 - 4.0 03/02 [place] HEMATOLOGY Basophils 0.5 0.0 - 1.0 03/02 [place] HEMATOLOGY Neutrophils # 2.2 1.5 - 8.1 03/02 [place] HEMATOLOGY Lymphocytes # 2.5 1.0 - 5.5 03/02 [place] HEMATOLOGY Monocytes # 0.5 0.0 - 0.8 03/02 [place] HEMATOLOGY Eosinophils # 0.1 0.0 - 0.5 03/02 [place] CARDIAC CK MB Index 0.9 0.0 - 2.5 05/20 [facility] CARDIAC Troponin-I <0.02 0.00 - 05/20 [facility] 0.40 /2017 Hospital CARDIAC CK MB 0.6 0.5 - 3.6 05/20 [facility] /2017 Hospital CARDIAC Total CK 64 12 - 191 05/20 [facility] CHEM PANEL A/G Ratio 0.7 0.7 - 1.6 05/18 [facility] /2017 [facility] CHEM PANEL B/C Ratio 23 6 - 25 05/18 [facility] /2017 [facility] CHEM PANEL Globulin 4.4 2.7 - 4.2 05/18 Hospital CHEM PANEL AGAP 13.5 10.0 - 05/18 20.0 Hospital CHEM PANEL eGFR 112 05/18 Result Comment: The Hospital eGFR is calculated using the CKD-EPI formula. In most young, healthy individuals the eGFR will be >90 mL/min/1.73m2 . The eGFR declines with age. An eGFR of 60-89 may be normal in some populations, particularly the elderly, for whom the CKD-EPI formula has not been extensively validated. Use of the eGFR is not recommended in the following populations:< br/>
Valentina viduals with unstable creatinine concentration s, including patients and those with serious co-morbid conditions.<b r/>
Patie nts with extremes in muscle mass or diet.

The data above are obtained from the National Kidney Disease Education Program (NKDEP) which additionally recommends that when the eGFR is used in patients with extremes of body mass index for purposes of drug dosing, the eGFR should be multiplied by the estimated BMI. CHEM PANEL Alk Phos 103 39 - 136 05/18 Hospital CHEM PANEL Bili Total 0.3 0.2 - 1.3 05/18 Hospital CHEM PANEL Albumin Lvl 3.1 3.5 - 5.0 05/18 Hospital CHEM PANEL AST 14 0 - 37 05/18 Hospital CHEM PANEL ALT 34 0 - 65 05/18 Hospital CHEM PANEL Total Protein 7.5 6.4 - 8.4 05/18 Hospital CHEM PANEL Calcium Lvl 8.7 8.5 - 10.5 05/18 Hospital CHEM PANEL CO2 27 24 - 32 05/18 Hospital CHEM PANEL Chloride Lvl 105 95 - 109 05/18 Hospital CHEM PANEL Potassium Lvl 3.5 3.5 - 5.1 05/18 Hospital CHEM PANEL Sodium Lvl 142 135 - 145 05/18 Hospital CHEM PANEL Creatinine 0.69 0.50 - 05/18 Lvl 1.40 Hospital CHEM PANEL BUN 16 7 - 22 05/18 [facility] CHEM PANEL Glucose Lvl 132 70 - 99 05/18 [facility] HEMATOLOGY Hct 38.1 36.0 - 05/18 [facility] 48.0 [facility] HEMATOLOGY MCV 86.0 80.0 - 05/18 [facility] 98.0 [facility] HEMATOLOGY Platelet 361 133 - 450 05/18 [facility] HEMATOLOGY MPV 7.7 7.4 - 10.4 05/18 [facility] HEMATOLOGY MCH 28.3 27.0 - 05/18 [facility] 31.0 [facility] HEMATOLOGY RDW 15.6 11.5 - 05/18 [facility] 14.5 [facility] HEMATOLOGY MCHC 32.9 32.0 - 05/18 [facility] 36.0 [facility] HEMATOLOGY WBC 10.9 3.7 - 10.4 05/18 [facility] HEMATOLOGY Hgb 12.5 12.0 - 05/18 [facility] 16.0 [facility] HEMATOLOGY RBC 4.42 4.20 - 05/18 [facility] 5.40 [facility] HEMATOLOGY Segs 80.0 45.0 - 05/18 [facility] 75.0 [facility] HEMATOLOGY Monocytes 6.1 2.0 - 12.0 05/18 [facility] HEMATOLOGY Basophils 0.1 0.0 - 1.0 05/18 [facility] HEMATOLOGY Lymphocytes 13.8 20.0 - 05/18 [facility] 40.0 [facility] HEMATOLOGY Segs-Bands # 8.7 1.5 - 8.1 05/18 [facility] HEMATOLOGY Lymphocytes # 1.5 1.0 - 5.5 05/18 [facility] HEMAT[facility]Y Monocytes # 0.7 0.0 - 0.8 05/18 [facility] BACTERIAL - MRSA by PCR Negative 05/18 [facility] (05/17/17 7:17 PM) /2017 [facility] nan BACTERIAL - Source Strep Urine 05/17 [facility] *NA* /2018 Hospital (05/17/17 5:44 PM) BACTERIAL - Strep Negative Negative 05/17 [facility] pneumoniae Ag (05/17/17 5:44 PM) /2017 Hospital CARDIAC Troponin-I 0.03 0.00 - 05/17 [facility] 0.40 [facility] CARDIAC Total CK 262 12 - 191 05/17 [facility] /2017 [facility] CARDIAC CK MB 2.9 0.5 - 3.6 05/17 [facility] CARDIAC Troponin-I 0.04 0.00 - 05/17 [facility] 0.40 /2017 [facility] CARDIAC CK MB 3.0 0.5 - 3.6 05/17 [facility] CARDIAC Total CK 255 12 - 191 05/17 [facility] CHEM PANEL Magnesium Lvl 2.0 1.8 - 2.4 05/17 [facility] CHEM PANEL Procalcitonin <0.05 0.00 - 05/17 [facility] Lvl ng/mL 0.10 Hospital VIRAL - Influ A Negative Negative 05/17 [facility] (05/17/17 11:04 AM) /2017 [facility]osp ital VIRAL - Influ B Negative Negative 05/17 [facility] (05/17/17 11:04 AM) [facility] CARDIAC BNP 224 <=100 05/17 [facility] pg/mL Hospital CHEM PANEL Lipase Lvl 172 73 - 393 05/17 [facility] CHEM PANEL Magnesium Lvl 2.0 1.8 - 2.4 05/17 [facility] CHEM PANEL Globulin 4.3 2.7 - 4.2 05/17 [facility] CHEM PANEL A/G Ratio 0.7 0.7 - 1.6 05/17 [facility] CHEM PANEL AGAP 12.5 10.0 - 05/17 [facility] 20.0 [facility] CHEM PANEL B/C Ratio 18 6 - 25 05/17 [facility] CHEM PANEL eGFR 110 05/17 [facility] Comment: The Hospital eGFR is calculated using the CKD-EPI formula. In most young, healthy individuals the eGFR will be >90 mL/min/1.73m2 . The eGFR declines with age. An eGFR of 60-89 may be normal in some populations, particularly the elderly, for whom the CKD-EPI formula has not been extensively validated. Use of the eGFR is not recommended in the following populations:< br/>
Valentina viduals with unstable creatinine concentration s, including patients and those with serious co-morbid conditions.<b r/>
Patie nts with extremes in muscle mass or diet.

The data above are obtained from the National Kidney Disease Education Program (NKDEP) which additionally recommends that when the eGFR is used in patients with extremes of body mass index for purposes of drug dosing, the eGFR should be multiplied by the estimated BMI. CHEM PANEL Bili Total 0.3 0.2 - 1.3 05/17 [facility] CHEM PANEL Total Protein 7.4 6.4 - 8.4 05/17 [facility] CHEM PANEL ALT 44 0 - 65 05/17 [facility] CHEM PANEL Albumin Lvl 3.1 3.5 - 5.0 05/17 [facility] CHEM PANEL Alk Phos 116 39 - 136 05/17 [facility] CHEM PANEL AST 42 0 - 37 05/17 [facility] CHEM PANEL CO2 28 24 - 32 05/17 [facility] CHEM PANEL Calcium Lvl 8.5 8.5 - 10.5 05/17 Hospital CHEM PANEL Potassium Lvl 3.5 3.5 - 5.1 05/17 Hospital CHEM PANEL Sodium Lvl 144 135 - 145 05/17 [facility] CHEM PANEL Chloride Lvl 107 95 - 109 05/17 [facility] CHEM PANEL Creatinine 0.71 0.50 - 05/17 [facility] L[facility] 1.40 [facility] CHEM PANEL BUN 13 7 - 22 05/17 [facility] CHEM PANEL Glucose Lvl 111 70 - 99 05/17 [facility] HEMATOLOGY D-Dimer 1.19 05/17 Hospital HEMATOLOGY PTT 25.2 22.9 - 05/17 [facility] 35.8 [facility] HEMATOLOGY INR 0.96 0.85 - 05/17 [facility] 1.17 [facility] HEMATOLOGY PT 12.8 12.0 - 05/17 [facility] 14.7 [facility] HEMATOLOGY Hgb 12.7 12.0 - 05/17 [facility] 16.0 [facility] HEMATOLOGY Hct 39.3 36.0 - 05/17 [facility] 48.0 [facility] HEMATOLOGY MCV 85.8 80.0 - 05/17 [facility] 98.0 [facility] HEMATOLOGY WBC 7.8 3.7 - 10.4 05/17 Hospital HEMATOLOGY RBC 4.57 4.20 - 05/17 [facility] 5.40 /2017 Hospital HEMATOLOGY MCHC 32.3 32.0 - 05/17 [facility] 36.0 [facility] HEMATOLOGY RDW 16.0 11.5 - 05/17 [facility] 14.5 [facility] HEMATOLOGY MCH 27.7 27.0 - 05/17 [facility] 31.0 [facility] HEMATOLOGY MPV 7.8 7.4 - 10.4 05/17 [facility] HEMATOLOGY Platelet 356 133 - 450 05/17 [facility] HEMATOLOGY Segs 67.3 45.0 - 05/17 [facility] 75.0 [facility] HEMATOLOGY Basophils 0.4 0.0 - 1.0 05/17 [facility] HEMATOLOGY Eosinophils 2.1 0.0 - 4.0 05/17 [facility] HEMATOLOGY Lymphocytes 23.8 20.0 - 05/17 [facility] 40.0 [facility] HEMATOLOGY Monocytes 6.4 2.0 - 12.0 05/17 [facility] HEMATOLOGY Monocytes # 0.5 0.0 - 0.8 05/17 [facility] HEMATOLOGY Eosinophils # 0.2 0.0 - 0.5 05/17 [facility] HEMATOLOGY Segs-Bands # 5.2 1.5 - 8.1 05/17 [facility] HEMATOLOGY Lymphocytes # 1.9 1.0 - 5.5 05/17 [facility] Pathology Reports No Data Provided for This Section Diagnostic Reports Report Value Date Source Chest Pulmonary PROCEDURE: CTA CHEST 05/17/2017 [facility] Embolism CTA Clinical Indication: Chest p ain, shortness of breath, and elevated d-dimer today. Comparison: None. TECHNIQUE: CTA of the pulmon noel arteries was performed following intravenous contrast administration. [...] tracheal mass identified. HEART: Mild to moderate car diomegaly. No pericardial effusion. Coronary artery calcifications present. VASCULAR STRUCTURES and PULM ONARY ARTERIES: Ascending thoracic aorta measures 3.4 cm diameter. Mild calcified plaque of thoracic aorta is seen. No flow- limiting stenosis or dissection flaps. No filling defects identified in the ma in pulmonary arteries or proximal segmental branches bilaterally. LUNGS AND PLEURA: Patchy eligio undglass opacities are seen in both upper lobes. Groundglass attenuation in both lower lobes also seen appearing greatest in the dependent portions with septal thickening. Mi nimal atelectasis or additio nal infiltrates in the middle lobe and lingula also seen. Trace layering bilateral pleural fluid versus dependent atelectasis. UPPER ABDOMEN: Limited survey of upper abdominal viscera is negative. MUSCULOSKELETAL: No suspicious osseous abnormali ty identified. IMPRESSION: 1. No CT evidence for acute pulmonary embolus o r thoracic aortic dissection. 2. Patchy bilateral upper l obe groundglass opacities suspicious for bilateral pneumonia. 3. More prominent ground gla ss changes in both lower lobes with septal thickening could represent superimposed pulmonary edema versus additional infectious or inflammatory infiltrates. 4. Few prominent mediastinal lymph nodes could b e reactive in nature. SL: [id number] Chest 1view DX EXAM: XR CHEST SINGLE VIEW 05/17/2017 [facility] HISTORY: 57 years year-old F emale with chest pain, shortness of breath, hypertension TECHNIQUE: A single AP view of the chest was obt ained. COMPARISON: None FINDINGS: The cardiomediastinal silhou ette is mildly prominent. Aortic calcifications present. Haziness in the bilateral lower lungs. No definite pneumothorax is seen. No acute osseous abnormality is evident. IMPRESSION: 1. Haziness in the lower lungs likely related to overlying soft tissues. SL: [id number] Spine lumbar wo EXAM: MRI of the lumbar spine without contrast. 05/20/2014 [facility] [place] contrast MRI CLINICAL HISTORY: 724.2 LUMBAGO COMPARISON: None. TECHNIQUE: Utilizing a high field MRI, sagittal T1 and T2, sagittal T2 FS, and axial T1 and T2 sequences were obtained. FINDINGS: There is no lumbar spine fracture or subluxation. The conus and cauda equina nerve roots are normal. The conus terminates at the upper L2 level. Findings by level: T12-L1: The intervertebral d isc is normal. The facet joints are normal. No central canal or neural foraminal stenosis. L1-L2: The intervertebral di sc is normal. There is minor bilateral facet arthrosis. No central canal or neural foraminal stenosis. L2-L3: There is mild disc de siccation, marginal osteophytosis, and a small Schmorl's node. There is a broad-based left neural foraminal disc protrusion measuring 3 mm AP, which slightly touches the left L2 exiting nerve r oot. There is minor bilateral facet arthrosis with a trace right facet joint effusion. No central canal or neural foraminal stenosis. L3-L4: There is mild disc de siccation, marginal osteophytosis, and a small Schmorl's node. There is mild bilateral facet arthrosis. No central canal or neural foraminal stenosis. L4-L5: There is mild disc de siccation, marginal osteophytosis, and a small Schmorl's node. There is mild annular bulging measuring up to 3 mm in the neural foraminal regions bilaterally. There is severe bilateral facet ar throsis. No central canal or neural foraminal stenosis. L5-S1: There is mild disc na rrowing, desiccation, marginal osteophytosis. There is a broad-based posterior central to left paracentral disc protrusion measuring 2.5 mm AP, which slightly touches the lef t S1 nerve root sleeve. Ther e is moderate bilateral facet arthrosis. No central canal or neural foraminal stenosis. IMPRESSION: 1. At L2-L3, there is a broa d-based left neural foraminal disc protrusion measuring 3 mm AP, which slightly touches the left L2 exiting nerve root. 2. At L4-L5, there is mild a nnular bulging measuring up to 3 mm in the neural foraminal regions bilaterally. There is severe bilateral facet arthrosis. 3. At L5-S1, there is a broa d-based posterior central to left paracentral disc protrusion measuring 2.5 mm AP, which slightly touches the left S1 nerve root sleeve. 4. No central canal or neural foraminal stenosis . Consultation Notes No Data Provided for This Section Discharge Summaries No Data Provided for This Section History and Physicals No Data Provided for This Section Vital Signs Vital Sign Value Date Comments Source Temperature Oral (F) 98.2 F 03/02/2019 [place] Heart Rate 62 03/02/2019 [place] Respitory Rate 18 03/02/2019 [place] Systolic (mm Hg) 121 [facility] Di[facility] ([facility] Hg) 74 03/02/2019 [place] Temperature Oral (F) 97.6 F 03/02[facility] 65 [facility] 18 [facility] Systolic (mm Hg) 124 03/02/2019 [facility] [place] Diastolic (mm Hg) 78 03/02/2019 [facility] Temperature Oral (F) 97.6 F 03/02/2019 [facility] Heart Rate 66 03/02[facility]2019 [facility] 18 [facility] Systolic (mm Hg) 128 03/02/2019 [facility] [place] Diastolic (mm Hg) 78 03/02/2019 [facility] Height 157.48 cm 03/02/[address] [facility] Weight 114.091 03/02/[address] [facility] BMI Calculated 46 [facility]02[facility] 20 05/20/2017 [facility] Systolic (mm Hg) 142 05/20/2017 [facility] Diastolic (mm Hg) 92 05/20/2017 [facility] Respitory Rate 20 05/20/2017 [facility] Systolic (mm Hg) 148 05/20/2017 [facility] Diastolic (mm Hg) 87 05/20/2017 [facility] Respitory Rate 24 05/20/2017 [facility] Systolic (mm Hg) 145 05/20/2017 [facility] Diastolic (mm Hg) 79 05/20/2017 [facility] Temperature Oral (F) 98.6 F 05/20/2017 [facility] Hospital Temperature Oral (F) 98.1 F 05/20/2017 [facility] Hospital Temperature Oral (F) 98.5 F 05/20/2017 [facility] Height 157.48 cm 05/17/2017 [facility] Heart Rate 74 05/17/2017 [facility] Heart Rate 64 05/17/[facility] BMI Calculated 50.22 05/17/2017 [facility] Height 157.48 cm 05/17/2017 [facility] 124.545 05/17/2017 [facility] Heart Rate 73 05/17/2017 [facility] Encounters Location Location Encounter Encounter Reason Attending ADM DC Stat us Source Details Type Number For Provider Date Date Visit [facility] Outpt Diag [id number] José 05/20 05/21 [facility] 0 Wilson Jr /2014 [facility] [place] Inpatient [id number] [facility] 05/17 05/20 [facility] Banerjee 0 [facility] Outpatient [id number] [facility] 08/12 [facility] [place] [facility] [id number] ISAAC 09/21 [facility] [place] Out[facility] [id number] ISAAC 10/07 [facility] [place] Outpatient [id number] ISAAC 11/09 [facility] [place] [facility] Outside [id number] 12/03 12/05 Misc her Neurology Medical Neuro [place] Records [facility] Observation [id number] Tammy 03/02 03/02 Chriss 0 [facility] Procedures Procedure Code Date Perfomer Comments Source Abdominal [id number] [facility] hysterectomy Neuro,[facility] Arthroplasty of [id number] RIGHT KNEE Mischer knee<sup>1</sup> Neuro,[facility] Skin graft to [id number] SKIN GRAFT Mischer extremity<sup>2</medina FROM RIGHT TO Ne uro,[facility] p> RIGHT FEET [facility] Tubal sterilisation [id number] Misch er Neuro,[facility] Assessment and Plan Assessment and Plan Date Source Extracted from:Title: History and Physical 03/02/[address] [facility] Author: Rusty Maria MD Date: 03/01/19 1.Hyperglycemia(R73.9) Due tonew onset diabetes. No evidence for DKA orHHS. Ordered: Admit/Condition, 03/01/19 20:22:00 DERRICK BOAT RUNNER, Status: Out Patient with Observation Services, Outpatient Surgery/Procedure, Expected LOS: 1 Midnight, Rusty Maria MD, Admit Review/Appro ve Yes, Isolation: No Isolation/Standard Precautions, Hyperg lycemi... 2.New onset type 2 diabetes mellitus(E11.9) Seems to be triggered by use of steroids . Diabetic diet. Accu-Chek. Insulin sliding scale. Ordered: Admit/Condition, 03/01/19 20:22:00 DERRICK [employer]NER, Status: Out Patient with Observation Services, Outpatient Surgery/Procedure, Expected LOS: 1 Midnight, Rusty Maria MD, Admit Review/Appro ve Yes, Isolation: No Isolation/Standard Precautions, Hyperg lycemi... 3.Acute abdominal pain(R10.9) Differential include gastritis due to st eroid use versus gastroenteritis. Outside abdominal CT reportedfatty liver. No acute findings. IV fluid. Pepcid. Lipase level. 4.Hypovolemia(E86.1) IV fluids. Ordered: Admit/Condition, 03/01/19 20:22:00 DERRICK [employer] RUNNER, Status: Out Patient with Observation Services, Outpatient Surgery/Procedure, Expected LOS: 1 Midnight, Rusty Maria MD, Admit Review/Appro ve Yes, Isolation: No Isolation/Standard Precautions, Hyperg lycemi... 5.HTN - Hypertension(I10) Resume blood pressure medication as tolerated. Ordered: Admit/Condition, 03/01/19 20:22:00 [employer]ERRICK [employer]NER, Status: Out Patient with Observation Services, Outpatient Surgery/Procedure, Expected LOS: 1 Midnight, Rusty Maria MD, it Review/Appro ve Yes, Isolation: No Isolation/Standard Precautions, Hyperg lycemi... 6.Hyperlipidemia(E78.5) No intervention. Ordered: Admit/Condition, 03/01/19 20:22:00 [employer]ERRICK [employer]NER, Status: Out Patient with Observation Services, Outpatient Surgery/Procedure, Expected LOS: 1 Midnight, Rusty Maria MD, Admit Review/Appro ve Yes, Isolation: No Isolation/Standard Precautions, Hyperg lycemi... 7.Morbid obesity(E66.01) Counseling. Ordered: Admit/Condition, 03/01/19 20:22:00 DERRICK [employer] RUNNER, Status: Out Patient with Observation Services, Outpatient Surgery/Procedure, Expected LOS: 1 Midnight, Rusty Maria MD, Admit MD Review/Appro ve Yes, Isolation: No Isolation/Standard Precautions, Hyperg lycemi... 8.History of DVT of lower extremity(Z86.718) History of DVT in the right leg. On Xarelto. Continue with X arelto. Ordered: Admit/Condition, 03/01/19 20:22:00 DERRICK BO[employer] RUNNER, Status: Out Patient with Observation Services, Outpatient Surgery/Procedure, Expected LOS: 1 Midnight, Rusty Maria MD, Admit Review/Appro ve Yes, Isolation: No Isolation/Standard Precautions, Hyperg lycemi... Xarelto Observation. Extracted from:Title: Discharge Summary * 05/20/2017 [facility] Author: Bouchra Ren MD Date: 05/21/17 Discharge Information ADMISSION DATE--05/17/2017 DISCHARGE DATE--05/20/2017 DISCHARGE DIAGNOSIS-- Acute exacerbation of diastolic heart failure Hypertensive emergency Bilateral upper lobe pneumonia Morbid obesity BMI of 50.2 History of hypertension on medications Hyperlipidemia Consultants involved--cardiology, medical researcher procedures performed--none Discharge Plan Discharge Summary Plan Discharge Status: improved. Discharge instructions given: to patient. Discharge disposition: discharge to home self care. Prescriptions: called to pharmacy. Orders discharge meds--see emd reconciliation form discharge condition--good discharge follow up--cardiology for outpatient stress test, pcp discharge diet--cardiac diet dischareg time >30min. Extracted from:Title: Progress Note * Author: Bouchra Ren MD Date: 05/19/17 Impression and Plan The patient was seen and examined by me with the resident/HOUSING ASSISTANT PROPERTY MANAGER/PA and I agree with the History/Exam documented. Impression and Plan Acute exacerbation of diastolic heart failure Hypertensive emergency Bilateral upper lobe pneumonia Morbid obesity BMI of 50.2 History of hypertension on medications Hyperlipidemia Patient is feeling much better, she denies shortness of christal th or cough However earlier today patient states magy t her 3 hours later patient had 10 minute chest pain that relieved with morphine. Cardiac enzymes ordered but during my en counter patient was comfortably sitting to the side of the bed trying to order her dinner menu otherwise denied any complaints. Continue current medications Tentative discharge plan in a.m., after cardiology clearance DVT prophylaxis bilateral SCDs CODE STATUS is full code Extracted from:Title: Consult Note Author: Cata Hou DO Date: 05/17/17 Impressions 1. Uncontrolled hypertension leading to hypertensive urgency without organ damage. 2. Morbid obesity with obesity alveolar hypoventilation 3. Concern for possible pneumonia though doubtful 4. Acute diastolic heart failure ICU plan Neuro: Non focal Pulm: No acute issues. Recommend an out patient sleep study. Her STOPBANG 5. High risk of MARIETTA. D/C IV steriods. Cardiac: Cardene ggt with change of SBP by 25%. To resume her oral meds. ECHO. Lasix. Will monitor. GI: Cardiac diet. Glu <180 Renal: No acute issues ID: D/C ceftriaxone. To transition to oral doxycyline. Proca l is negative. Heme: Transfuse if heme <7 Patient accepted to the ICU for BP management. ICU time without procedure without overlap 30 minutes. Extracted from:Title: General Admission H&P * Author: Bouchra Ren MD Date: 05/17/17 Impression and Plan Acute exacerbation of diastolic heart failure Hypertensive emergency Bilateral upper lobe pneumonia Morbid obesity BMI of 50.2 History of hypertension on medications Hyperlipidemia Admit to inpatient, MICU Patient is started on Cardene drip, monitor vital signs clos leah Serial cardiac enzymes will be followed Patient states that her echocardiogram was done a month ago and it was normal Cardiology consult placed Patient will be Given aspirin, Lasix and IV antibiotics will be initiated Patient will also be started on low-dose steroids due to seasonal allergies, IV antibiotics with doxycycline and IV ceftriaxone Pro calcitonin, blood cultures 2, urine for strep pneumo antigen, Legionella antigen. Pepcid will be given Will resume home medications DVT prophylaxis-subcu Lovenox CODE STATUS is full code Plan of Care No Data Provided for This Section Social History Social History Date Source Social History TypeResponse 05/17/2017 [facility] Substance Abuse Use: None. Employment/School Status: Employed. Work/School description: Registered Nurses. Alcohol Never Smoking Status Never smoker; Exposure to Tobacco Smoke None; Cigarette Smoking Last 365 Days No; Reg Smoking Cessation Counseling No entered on: 10/07/17 Social History TypeResponse 05/17/2017 [facility] Substance Abuse Use: None. Employment/School Status: Employed. Work/School description: Registered Nurses. Alcohol Never Smoking Status Never smoker; Exposure to Tobacco Smoke None; Cigarette Smoking Last 365 Days No; Reg Smoking Cessation Counseling No entered on: 08/12/17 Social History TypeResponse 05/17/2017 [facility] Alcohol Never Employment/School Status: Employed. Work/School description: Registered Nurses. Substance Abuse Use: None. Smoking Status Never smoker; Exposure to Tobacco Smoke None; Cigarette Smoking Last 365 Days No; Reg Smoking Cessation Counseling No entered on: 03/01/19 No data available for this 05/21/2014 [facility] [place] section Family History No Data Provided for This Section Advance Directives No Data Provided for This Section Functional Status No Data Provided for This Section
--- OUTSIDE RECORDS SUMMARY | 2019-11-15 12:38 | XMS REPORT | Continuity of Care Document ---
:1960 Author Organization [facility] t Address [address] [place] [address] Care Team Providers Name Role Phone Suzette Hartmann MD Attending Clinician Doctor Unassigned, Name Attending Clinician Unavailable Tim Attending Clinician Mikal Attending Clinician Kelly Rachel Jr Attending Clinician Tim Admitting Clinician Mikal Admitting Clinician Payers Payer Name Policy Type Policy Number Effective Date Expiration Date S ource Problems Condition Condition Condition Status Onset Resolution Last Treating Co mments Source Name Details Category Date Date Treatment Clinician Date HYPERGYCEM Diagnosis Active 2018-032019-03-13 Memoria [place], NEW - 21:48:00 l ONSET TYPE 00:00: Sven n 2 DIABETES HYPERGYCEM 00 IA, NEW ONSET TYPE 2 DIABETES Active 03/01/2019 Freddie Banerjee NEW ONSET Diagnosis Active 2018-032019-03-01 Memoria DIABETES 2- 19:52:00 l NEW 00:00: Chriss ONSET 00 DIABETES Active 03/01/2019 Freddie Banerjee 724.2 - Diagnosis Active 2013-032014-05-20 Ia moria LUMBAGO 2- 09:46:00 l 724.2 - 00:01: [place] LUMBAGO 00 Active 03/06/2014 ROSSYD [place] Acute on Problem 2017-08-26 Mem oria chronic 12:30:55 l diastolic Acute on Her [place] (congestiv chronic e) heart diastolic failure (congestiv e) heart failure 08/26/2017 [facility] Pneumonia, Problem 2017-08-26 M emoria unspecifie 12:30:55 l d organism Sven n Pneumonia, unspecifie d organism 08/26/2017 [facility] Morbid Problem 2017-08-26 Memor ia (severe) 12:30:55 l obesity 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 08/26/2017 [facility] Hypertensi Problem 2017-08-26 M emoria ve 12:30:55 l emergency Chriss Hypertensi ve emergency 08/26/2017 [facility] Hyperlipid Problem 2017-08-26 M emoria emia, 12:30:55 l unspecifie Sven n d Hyperlipid emia, unspecifie d 08/26/2017 [facility] Body mass Problem 2017-08-26 Me moria index 12:30:55 l (BMI) Body [place] 50-59.9 , mass index adult (BMI) 50-59.9 , adult 08/26/2017 [facility] Backache Problem Active 2019-03-04 Mem oria (finding) 22:53:39 l Backache Sven n (finding) [facility]pal Problem Active 2019-03-04 Memor ia tunnel 22:53:39 l syndrome Carpal Sven n (disorder) tunnel syndrome (disorder) [facility] [facility] Active 2019-03-04 M emoria ve 22:53:39 l disorder, Chriss systemic Hypertensi arterial ve (disorder) disorder, systemic arterial (disorder) Active Problem 03/04/2019 [facility] Hyperlipid Problem Active 2019-03-04 M emoria emia 22:53:39 l (disorder) Sven n Hyperlipid emia (disorder) Active Problem 03/04/2019 [facility] Morbid Problem Active 2019-03-04 Memor ia obesity 22:53:39 l (disorder) Morbid Herm luis obesity (disorder) Active Problem 03/04/2019 [facility] Neck pain Problem Active 2019-03-04 Me moria (finding) 22:53:39 l Neck Chriss pain (finding) Active Problem 03/04/2019 [facility] Neuropathy Problem Active 2019-03-04 M emoria of lower 22:53:39 l limb Chriss (disorder) Neuropathy of lower limb (disorder) Active Problem 03/04/2019 [facility] Paresthesi Problem Active 2019-03-04 M emoria a 22:53:39 l (finding) Chriss Paresthesi a (finding) Active Problem 03/04/2019 [facility] Type II Problem Active 2019-03-04 Khai mariya diabetes 22:53:39 l mellitus Type II Malina nn uncontroll diabetes ed mellitus (finding) uncontroll ed (finding) Active Problem 03/04/[address] [facility] HYPERGLYCE Diagnosis Active 2019-03-13 Memoria HAFSA, 21:48:00 l UNSPECIFIE Sven n D HYPERGLYCE HAFSA, UNSPECIFIE D Active [facility] TYPE 2 Diagnosis Active 2019-03-13 Mem oria DIABETES 21:48:00 l MELLITUS TYPE 2 Sven n WITHOUT DIABETES COMPLIC MELLITUS WITHOUT COMPLIC Active [facility] HYPOVOLEMI Diagnosis Active 2019-03-13 Memoria A 21:48:00 l [place] HYPOVOLEMI A Active [facility] Hypertensi Problem 2017-2017-08-26 2017-08-26 Memoria ve heart 05-26 12:30:55 12:30:55 l disease 04:11: [place] with heart Hypertensi 57 failure ve heart disease with heart failure 05/26/2017 08/26/2017 [facility] Allergies, Adverse Reactions, Alerts Allergy Allergy Status Severity Reaction(s) Onset Inactive Treating Comm ents Source Name Type Date Date Clinician sulfamet DA Active U 2018-03 [facility] hoxazole 03-08 Clear 00:00: Crocker 00 [facility] trimetho DA Active U 2018-03 [facility] prim 03-08 Clear 00:00: Crocker 00 [facility] penicill DA Active DC 2018-03 [facility] in 03-08 Clear 00:00: Crocker 00 [facility] sulfamet DA Active U [facility] hoxazole 03-07 Clear 00:00: Crocker 00 [facility] trimetho DA Active U [facility] prim 03-07 Clear 00:00: Crocker 00 [facility] penicill DA Active DC [facility] in 10-25 Clear 00:00: Crocker 00 [facility] Bactrim< Bactrim< Active Memori a sup>1</s sup>1</s l up> up> Chriss Social History Social Habit Start Date Stop Date Quantity Comments Source Social History 2014-05-21 2014-05-21 [facility] 04:59:00 04:59:00 Medications Ordered Filled Start Stop Current Ordering Indication Dosage Frequency Signature Comments Components Source Medication Medication Date Date Medication? Clinician (SIG) Name Name nicola 2018-03 No Notes: Khai mariya n 2-28 (Same As: l 03:00: Lipitor) [place] 00 3 ML 2018-03 Yes 15 unit, Memoria Insulin 2-27 SUB-Q, l Glargine 16:15: Daily, Maritza Radford nn 100 UNT/ML 00 10 mL, 0 Prefilled Refill(s), Syringe Pharmacy: [facility]us[id number] insulin 2018-03 Yes 2 unit, Memoria lispro 100 2-27 SUB-Q, l units/mL 16:15: TID-Before Her monroe injectable 00 Meals, # solution 10 mL, 0 Refill(s), Pharmacy: [id number] Insulin 2018-03 Yes 1 syr, Memoria Syringes (U 2-27 SUB-Q, l 100) 16:15: ONCALL, # [place] 00 100 syr, 0 Refill(s), Pharmacy: [id number] Insulin 2018-03 Yes 1 ea, Memoria Needle/Syri 2-27 MISC, l nge Combo 16:15: Daily, # Kumar smith Misc/Other 00 100 ea, 3 Refill(s), Pharmacy: [id number] Accu-Chek 2019- Yes , # 1 ea, Mem oria Alysa Blood 2-27 Insulin l Glucose 16:15: dependent, Herm luis Meter 00 Does not use insulin pump, Last DM eval date 03/02/19, 0 Refill(s), Pharmacy: [id number] Accu-Chek 2018- Yes , # 100 Memor ia Alysa Plus 2-27 ea, l Blood 16:15: Insulin [place] Glucose 00 dependent, Test Strips Does not use insulin pump, Last DM eval date 03/02/19, 3 Refill(s), Pharmacy: [id number] Accu-Chek 2018- Yes , # 1 ea, Mem oria FastClix 2-27 Insulin l Lancets 16:15: dependent, Herm luis Device 00 Does not use insulin pump, Last DM eval date 03/02/19, 0 Refill(s), Pharmacy: [facility] #[id number] Accu-Chek 2018- Yes , # 1 ea, Mem oria Softclix 2-27 Insulin l Lancets 16:15: dependent, Herm luis Device 00 Does not use insulin pump, Last DM eval date 03/02/19, 0 Refill(s), Pharmacy: [facility] #[id number] Amlodipine 2018- No Notes: Memor ia 2-27 (Same as: l 15:00: Norvasc) Chriss Aspirin 81 2018-03 No Notes: Do Me moria MG Enteric 2-27 not crush l Coated 15:00: or chew. [place] Tablet (Same As: Ecotrin) carvedilol 2018-03 No Notes: Memor ia 2-27 Give with l 15:00: food. Chriss 00 (Same As: Coreg) Xarelto 2018-03 No Notes: Memoria 2-27 (Same as: l 15:00: Xarelto) [place] Pepcid 2018-03 No 20 mg, Memoria 2-27 Route: l 15:00: IVP, Drug [place] 00 form: INJ, Q12H, Dosing Weight 114.091, kg, Start date: 03/02/19 9:00:00 [employer] CHAINSTITCH, Duration: 30 day, Stop date: 03/31/19 21:00:00 [employer] Pepcid 2018-03 No Notes: Memoria - (Same as: l 09:24: Pepcid) Can be dilute in 5-10cc NS IVP: Slow IV push over at least 2 minutes. Insulin 2018-03 No Notes: Memoria Glargine - (Same as: l 100 UNT/ML 09:23: Lantus) Do H ermann Injectable 00 not hold Solution insulin [Lantus] without contacting prescriber WASTE: F/P - Black; E - Municipal Trash Bin "single patient use only" Stable for 28 days at room temperatur e Expires in days from ____Date Dextrose 2018-03 No 25 mL, Memoria 50% Syringe 05-03 Route: l (D50W) 02:19: IVP, Dosing Weight 114.091, kg, PRN, PRN Blood Glucose Results, Start date: 03/01/19 20:19:00 [employer] CHAINSTITCH, Duration: 30 day, Stop date: 03/31/19 20:18:00 [employer] Glucagon 2018-03 No 1 mg, Memoria 05-03 Route: IM, l 02:19: PRN, Dosing Weight 114.091, kg, PRN Blood Glucose Results, Start date: 03/01/19 20:19:00 [employer] CHAINSTITCH, Duration: 30 day, Stop date: 03/31/19 20:18:00 [employer] Bisacodyl 2018-03 No Notes: Memori a - (Same As: l 02:19: Dulcolax, Bisco-Lax) Ondansetron 2018-03 No Notes: Khai mariya - (Same as: l 02:19: Zofran) MEDICATION WASTE Product Size: 4 mg Product Wasted: ___ mg Melatonin 2018-03 No Notes: Memori a - (Same as: l 02:19: Melatonin) Acetaminoph 2018-03 No Notes: Do M emoria en 05-03 not exceed l 02:19: 4 gm/day. [place] 00 (Same as: Tylenol) Potassium 2018-03 No Notes: Memori a Chloride - (Same as: l 02:18: K-Dur 20) "Do Not Crush" Give with food and full glass of water For patients unable to swallow tablet, dissolve in one half glass of water. Allow about 2 minutes for the tablets to disintegra te. Stir before giving to prepare slurry and administer . Please exclude Patient s with feeding tube less than 14 Chinese (Dobhoff, J-tube etc) and pediatric and patients. potassium 2018-03 No Notes: Memori a phosphate-s 2-27 (Same as: l odium 02:18: Phos-NaK) [place] phosphate 00 Each 1.5 250 mg-280 gm pkt has mg-160 mg 250mg oral powder phosphorou for s. Mix reconstitut w/2.5oz ion water and stir. potassium 2018-03 No Notes: Memori a phosphate 2-27 (Same as: l 02:18: K Chriss 00 Phosphate. ) Do not infuse phosphorou s concurrent ly in the same line as TPN or IVF that contains calcium. For double lumen central lines, phosphorou s may be infused in a separate lumen from TPN. 1 mMol phoshate has 1.47 mEq potassium Infuse over 4 hours sodium 2018-03 No Notes: Memoria phosphate 2-27 Infuse l 02:18: over 4 hour. Do not infuse phosphorou s concurrent ly in the same line as TPN or IVF that contains calcium. For double lumen central lines, phosphorou s may be infused in a separate lumen from TPN. Magnesium 2018-03 No Notes: Memori a Sulfate 2-27 WASTE: F/P l 02:18: - Sink; E - Municipal Trash Bin Magnesium 2018-03 No Notes: Memori a Oxide 2-27 (Same as: l 02:18: Mag-Ox 400) Magnesium oxide 448xa=486j g elemental magnesium Dose=____m g magnesium oxide (___mg elemental magnesium) Calcium 2018-03 No Notes: Memoria Gluconate 2-27 WASTE: F/P l 02:18: - Sink; E - Municipal Trash Bin Dextrose 2018-03 No 12.5 gm, Memor ia 50% Syringe 2-27 25 mL, l (D50W) 02:18: Route: IVP, Drug Form: INJ, Dosing Weight 114.091, kg, PRN, PRN Blood Glucose Results, Start date: 03/01/19 20:18:00 [employer] CH[employer]STITCH, Duration: 30 day, Stop date: 03/31/19 20:17:00 E[employer] CHAINSTITCH, 0 Glucagon 2018-03 No 1 mg, Memoria 2-27 Route: IM, l 02:18: Drug form: PDR/INJ, PRN, Dosing Weight 114.091, kg, PRN Blood Glucose Results, Start date: 03/01/19 20:18:00 E[employer] CHAINSTITCH, Duration: 30 day, Stop date: 03/31/19 20:17:00 [employer] CH[employer]STITCH, 0 Insulin 2018-03 No Notes: Memoria Lispro 2-27 (Same as: l 02:18: Humalog) Roll in palms of hands gently; Do not shake vigorously . WASTE: F/P - Black; E - Municipal Trash Bin Stable for 28 days at room temperatur e. Expires in days from ____Date Tramadol 2018-03 No Notes: Not Mem oria 2-27 to exceed l 02:17: 400mg/day. (Same As: Ultram) Morphine 2018-03 No 1 mg, 0.5 Khai mariya 2-27 mL, Route: l 02:17: IVP, Drug form: SOLN, Q4H, Dosing Weight 114.091, kg, PRN Pain Score 7-10, Start date: 03/01/19 20:17:00 [employer] CHAINSTITCH, Duration: 5 day, Stop date: 03/06/19 20:16:00 E[employer] ATT[employer] CHAINSTITCH, 0 LR IV 1,000 2018-03 No 1,000 mL, M emoria mL 2-27 Rate: 75 l 02:15: ml/hr, Infuse over: 13.3 hr, Route: IV, Dosing Weight 114.091 kg, Total Volume: 1,000, Start date: 03/01/19 20:15:00 E[employer] CHAINSTITCH, Duration: 30 day, Stop date: 03/31/19 20:14:00 [employer] CH[employer]STITCH, 2.28, m2, 0 Hydrochloro 2018-03 Yes 25 mg, PO, Memoria thiazide 2-27 Daily, 0 l 01:56: Refill(s) [place] 00 carvedilol 2018-03 No 25 mg, PO, M emoria 2-27 Daily, 0 l 01:56: Refill(s) [place] 00 rivaroxaban 2018-03 Yes 20 mg = 1 M emoria 20 MG Oral 2-27 tab, PO, l Tablet 01:56: Daily, # [place] [Xarelto] 00 30 tab, 3 Refill(s) spironolact No 25 mg = 1 M emoria one 25 mg 3-16 tab, PO, l oral tablet 18:07: Daily, # He rmann 00 30 tab, 1 Refill(s), Pharmacy: [facility] #[id number] potassium 2017- No 20 mEq = 1 Me moria chloride 20 3-16 tab, PO, l mEq oral 18:07: Daily, [place] tablet, 00 Take while extended you are on release Hydrochlor othiazide, # 30 tab, 1 Refill(s), Pharmacy: [facility] #[id number] Hydrochloro 2017- Yes 25 mg = 1 M emoria thiazide 25 3-16 tab, PO, l MG Oral 18:07: Daily, # Sven n Tablet 00 30 tab, 1 Refill(s), Pharmacy: [facility] #[id number] Famotidine 2017- No 20 mg = 1 Me moria 20 MG Oral 3-16 tab, PO, l Tablet 18:07: BID, # 60 Sven n [Pepcid] 00 tab, 0 Refill(s), Pharmacy: [facility] #[id number] doxycycline 2017-0 No 100 mg = 1 Memoria hyclate 100 3-16 cap, PO, l MG Oral 18:07: VSOR18O, # Herm luis Capsule 00 10 caplet, 0 Refill(s), [facility]acy: [id number] losartan 2018-0 Yes 100 mg = 1 Mem oria 100 mg oral 3-16 tab, PO, l tablet 18:07: Daily, # [place] 00 30 tab, 1 Refill(s), Pharmacy: [facility] #[id number] carvedilol 2017-0 Yes 25 mg = 1 Me moria 25 mg oral 3-16 tab, PO, l tablet 18:07: BID, # 60 Sven n 00 tab, 1 Refill(s), Pharmacy: [facility] #[id number] atorvastati Yes 20 mg = 2 M emoria n 10 mg 3-16 tab, PO, l oral tablet 18:07: Bedtime, # 30 tab, 1 Refill(s), Pharmacy: [facility] #[id number] amLODIPine Yes 10 mg = 1 Me moria 10 mg oral 3-16 tab, PO, l tablet 18:07: Daily, # 30 tab, 1 Refill(s), Pharmacy: [facility] #[id number] Coreg No Notes: Memoria 3-15 Give with l 22:00: food. (Same As: Coreg) Hydrochloro No Notes: Khai mariya thiazide 3-15 (Same as: l 14:00: Hydrodiuri l) With food. Aldactone No Notes: Memori a 3-15 (Same As: l 14:00: Aldactone) Norvasc No Notes: Memoria 3-15 (Same as: l 14:00: Norvasc) Potassium No Notes: Memori a Chloride 3-15 (Same as: l 14:00: K-Dur 20) "Do Not Crush" With food and full glass of water Coreg No Notes: Memoria 3-14 Give with l 22:00: food. (Same As: Coreg) Potassium No 20 mEq, Memor ia Chloride 3-14 Route: PO, l 22:00: Drug form: ERTAB, BID, Dosing Weight 124.545, kg, Start date: 05/18/17 17:00:00 CDT, Duration: 30 day, Stop date: 06/17/17 9:00:00 CDT sodium No 15 mmol, 5 Memor ia phosphate 3-14 mL, Route: l 20:07: IVPB, PRN, Dosing Weight 124.545, kg, PRN Abnormal Lab Result, For NON-ICU Patients Only., Start date: 05/18/17 15:07:00 CDT, Duration: 30 day, Stop date: 06/17/17 15:06:00 CDT potassium No Notes: Memori a phosphate 3-14 (Same as: l 20:07: K [place] 00 Phosphate. ) 1 mMol phoshate has 1.47 mEq potassium Infuse over 4 hours Magnesium No Notes: Memori a Sulfate 3-14 WASTE: F/P l 20:07: - Sink; E Chriss - Municipal Trash Bin Potassium No Notes: Memori a Chloride 3-14 (Same as: l 20:07: K-Dur 20) Chriss 00 "Do Not Crush" With food and full glass of water potassium No Notes: Memori a phosphate-s 3-14 (Same as: l odium 20:07: Phos-NaK) phosphate 00 Each 1.5 250 mg-280 gm pkt has mg-160 mg 250mg oral powder phosphorou for s. Mix reconstitut w/2.5oz ion water and stir. Calcium No Notes: Memoria Gluconate 3-14 WASTE: F/P l 20:07: - Sink; E - Municipal Trash Bin Magnesium No Notes: Memori a Oxide 3-14 (Same as: l 20:07: Mag-Ox [place] 00 400) Magnesium oxide 764vw=316m g elemental magnesium Dose=____m g magnesium oxide (___mg elemental magnesium) Rocephin No Notes: Memoria 3-14 (Same As: l 16:00: Rocephin). Use with 100 mL NS and infuse over 30 min MEDICATION WASTE Product Size: 1000 mg Product Wasted: _0__ mg Clonidine No Notes: Memori a Hydrochlori 3-14 (Same As: l de 0.1 MG 15:47: Catapres) Her monroe Oral Tablet 00 amLODIPine No Notes: Memor ia 3-14 (Same as: l 15:05: Norvasc) Chriss multivitami No Notes: Khai mariya n 3-14 (Same l 14:00: as:Thera) WASTE: F/P - Black; E - Municipal Trash Bin Take with food. Losartan No Notes: Memoria 3-14 (Same as: l 14:00: Cozaar) Chriss 00 Glucosamine No 1,500 mg, M emoria 3-14 Route: PO, l 14:00: Daily, Dosing Weight 124.545, kg, Start date: 05/18/17 9:00:00 CDT, Duration: 30 day, Stop date: 06/16/17 9:00:00 CDT Norvasc No Notes: Memoria 3-14 (Same as: l 14:00: Norvasc) [place] Doxycycline No Notes: Khai mariya 3-14 (Same as: l 04:00: Vibramycin Chriss ) No milk/antac ids/iron. Coreg No Notes: Memoria 3-14 Give with l 02:00: food. [place] (Same As: Coreg) Saline No Notes: Memoria Flush 0.9% 3-14 (Same as: l 02:00: BD [place] Posiflush) atorvastati No Notes: Khai mariya n 3-14 (Same As: l 02:00: Lipitor) Chriss Doxycycline No Notes: Khai mariya 3-14 (Same as: l 02:00: Vibramycin Chriss ) Saline No Notes: Memoria Flush 0.9% 3-13 (Same as: l 23:50: BD Chriss Posiflush) Nystatin No Notes: Memoria 100 UNT/MG 3-13 (Same l Topical 23:50: as:Mycosta Herm luis Powder 00 tin, Nilstat) For external use only. sodium No 30 mmol, Memoria phosphate 3-13 10 mL, l 23:50: Route: Chriss 00 IVPB, PRN, Dosing Weight 124.545, kg, PRN Abnormal Lab Result, Start date: 05/17/17 18:50:00 CDT, Duration: 30 day, Stop date: 06/16/17 18:49:00 CDT, FOR ICU USE ONLY Potassium No Notes: Memori a Chloride 3-13 Infuse at l 23:50: a rate of Chriss 10 mEq/hr. (Same as: KCL) potassium No Notes: Memori a phosphate 3-13 (Same as: l 23:50: K [place] Phosphate. ) 1 mMol phoshate has 1.47 mEq potassium Infuse over 4 hours potassium No Notes: Memori a phosphate-s -13 (Same as: l odium 23:50: Phos-NaK) [place] phosphate 00 Each 1.5 250 mg-280 gm pkt has mg-160 mg 250mg oral powder phosphorou for s. Mix reconstitut w/2.5oz ion water and stir. Calcium No Notes: Memoria Gluconate 05-17 WASTE: F/P l 23:50: - Sink; E [place] 00 - Municipal Trash Bin Magnesium No Notes: Memori a Sulfate 05-17 WASTE: F/P l 23:50: - Sink; E Chriss 00 - Municipal Trash Bin Magnesium No Notes: Memori a Oxide - (Same as: l 23:50: Mag-Ox [place] 00 400) Magnesium oxide 677cu=687s g elemental magnesium Dose=____m g magnesium oxide (___mg elemental magnesium) Calcium No Notes: Memoria Carbonate -13 (Same As: l 500 MG 23:50: Tums) [place] Chewable 00 Calcium Tablet Carbonate 500 mg = 200 mg elemental calcium Dose = mg calcium carbonate ( mg elemental calcium) Singulair No Notes: Memori a 3-13 (Same l 22:00: as:Singula Chriss 00 ir) Famotidine No Notes: Memor ia 20 MG Oral 3-13 (Same as: l Tablet 22:00: Pepcid) Chriss [Pepcid] 00 Protonix No Notes: Memoria 3-13 Tablet l 21:30: should not Chriss 00 be chewed or crushed. (Same as: Protonix) Lovenox No Notes: Memoria 3-13 (Same as: l 21:00: Lovenox) Chriss 00 Lovenox No 40 mg, Memoria 3-13 Route: l 20:38: SUB-Q, Chriss Drug form: INJ, Daily, Dosing Weight 124.545, kg, Priority: STAT, Start date: 05/17/17 15:38:00 CDT, Duration: 30 day, Stop date: 06/16/17 9:00:00 CDT morphine No Notes: Memoria Sulfate 3-13 (Same l 18:00: as:MORPhin Chriss 00 e Sulfate) Morphine No 2 mg, Memoria 3-13 Route: l 16:59: IVP, Q4H, [place] 00 Dosing Weight 124.545, kg, PRN Pain Score 7-10, Start date: 05/17/17 11:59:00 CDT, Duration: 30 day, Stop date: 06/16/17 11:58:00 CDT Acetaminoph No Notes: Do M emoria en 3-13 not exceed l 16:59: 4 gm/day. [place] (Same as: Tylenol) Ondansetron No Notes: Khai mariya 3-13 (Same as: l 16:59: Zofran) Chriss 00 MEDICATION WASTE Product Size: 4 mg Product Wasted: 0 mg methylPREDN No Notes: Khai mariya ISolone 3-13 (Same l SODium 16:58: as:Solu-ME Malina nn SUCCinate 00 DROL, A-Methapre d) Doxycycline No 100 mg, Mem oria 3-13 Route: IV, l 16:58: BID, Chriss Dosing Weight 124.545, kg, Priority: NOW, Start date: 05/17/17 11:58:00 CDT, Duration: 30 day, Stop date: 06/16/17 9:00:00 CDT Aspirin 325 No Notes: (Do Memoria MG Enteric 3-13 Not Crush) l Coated 16:58: Do not [place] Tablet 00 crush or chew. Lasix No Notes: Memoria 3-13 (Same as: l 16:55: Lasix) [place] MEDICATION WASTE Product Size: 40 mg Product Wasted: 0 mg Protonix Yes 40 mg, PO, Mem oria 3-13 Daily l 16:46: [place] 00 carvedilol No 3.125 mg = M emoria 3.13 MG 3-13 1 tab, PO, l Oral Tablet 16:46: BID Sven n [Coreg] 00 Losartan No 50 mg, PO, Mem oria 3-13 Daily l 16:46: Aspirin No 81 mg, PO, Khai mariya 3-13 Daily l 16:46: multivitami Yes 1 tab, PO, Memoria n 3-13 Daily, l 16:46: Nonformula ry "More Vitamin" brand per patient Glucosamine No 1,500 mg, M emoria 3-13 PO, Daily l 16:46: Norvasc No 5 mg, PO, Memor ia 3-13 Daily l 16:46: Singulair No 10 mg, PO, Me moria 3-13 Daily l 16:46: atorvastati No 10 mg, PO, Memoria n 3-13 Daily l 16:46: Morphine No Notes: Memoria 3-13 (Same l 15:39: as:MORPhin e Sulfate) Tylenol No Notes: Max Khai mariya 3-13 acetaminop l 15:36: hen 4000 mg/day (4 gm/day). (Same as: Tylenol Extra Strength) cefTRIAXone No Notes: Khai mariya + sterile 3-13 (Same As: l water 10 mL 15:05: Rocephin). Use with 100 mL NS and infuse over 30 min MEDICATION WASTE Product Size: 1000 mg Product Wasted: ___ mg Doxycycline No Notes: Khai mariya 3-13 (Same as: l 14:58: Vibramycin ) Rocephin No 1 gm, Memoria 3-13 Route: l 14:58: IVPB, Drug form: PDR/INJ, ONCE, Dosing Weight 124.545, kg, Priority: STAT, Start date: 05/17/17 9:58:00 CDT, Stop date: 05/17/17 9:58:00 CDT, ABX Indication : Pneumonia Nicardipine No Notes: Khai mariya 3-13 Same as: l 14:07: Cardene Concentrat ion: (0.2 mg /1 ml ) BD Normal No Notes: Memori a Saline 3-13 (Same as: l Flush 13:11: BD Chriss 00 Posiflush) Labetalol 2018-0 No Notes: Memori a 3-13 (Same as: l 12:57: Normodyne, [place] 00 Trandate) Push over 2 minutes Give bolus over 2-3 minutes. Vital Signs Vital Name Observation Time Observation Value Comments Source Temperature Oral (F) 2019-03-02 14:19:00 98.2 F [facility] [place] Heart Rate 2019-03-02 14:19:00 [facility] Chriss Respitory Rate 2019-03-02 14:19:00 Memori al [place] Systolic (mm Hg) 2019-03-02 14:19:00 Khai rial [place] Diastolic (mm Hg) 2019-03-02 14:19:00 Mem orial Chriss Temperature Oral (F) 2019-03-02 09:40:00 97.6 F [facility] [place] Heart Rate 2019-03-02 09:40:00 [facility] Chriss Respitory Rate 2019-03-02 09:40:00 Memori al [place] Systolic (mm Hg) 2019-03-02 09:40:00 Khai rial [place] Diastolic (mm Hg) 2019-03-02 09:40:00 Mem orial Chriss Temperature Oral (F) 2019-03-02 06:30:00 97.6 F [facility] [place] Heart Rate 2019-03-02 06:30:00 [facility] [place] Respitory Rate 2019-03-02 06:30:00 Memori al [place] Systolic (mm Hg) 2019-03-02 06:30:00 Khai rial [place] Diastolic (mm Hg) 2019-03-02 06:30:00 Mem orial Chriss Height 2019-03-02 01:51:00 157.48 cm [facility] [place] Weight 2019-03-02 01:51:00 [facility] Chr[place] BMI Calculated 2019-03-02 01:51:00 Memori al [place] Respitory Rate 2017-05-20 16:34:00 Memori al [place] Systolic (mm Hg) 2017-05-20 16:34:00 Khai rial Chriss Diastolic (mm Hg) 2017-05-20 16:34:00 Mem orial Chriss Respitory Rate 2017-05-20 14:00:00 Memori al [place] Systolic (mm Hg) 2017-05-20 14:00:00 Khai rial [place] Diastolic (mm Hg) 2017-05-20 14:00:00 Mem orial Chriss Respitory Rate 2017-05-20 13:00:00 Memori al Chriss Systolic (mm Hg) 2017-05-20 13:00:00 Khai rial [place] Diastolic (mm Hg) 2017-05-20 13:00:00 Mem orial Chriss Temperature Oral (F) 2017-05-20 09:04:00 98.6 F [facility] [place] Temperature Oral (F) 2017-05-20 05:01:00 98.1 F [facility] [place] Temperature Oral (F) 2017-05-20 00:47:00 98.5 F [facility] [place] Height 2017-05-17 23:03:00 157.48 cm [facility] Heart Rate 2017-05-17 22:45:00 [facility] [place] Heart Rate 2017-05-17 13:30:00 [facility] Chr[place] BMI Calculated 2017-05-17 12:47:00 Memjennyfer al [place] Height 2017-05-17 12:47:00 157.48 cm [facility] [place] Weight 2017-05-17 12:47:00 [facility] [place] Heart Rate 2017-05-17 12:47:00 [facility] [place] Procedures Procedure Date / Time Performed Performing Clinician Brant kumar Abdominal [facility]rectomy [facility] knee<sup>1</sup> Skin graft to [facility] extremity<sup>2</sup> Tubal sterilisation [facility] Encounters Start End Encounter Admission Attending Care Care Encounter Source Date/Time Date/Time Type Type Clinicians Facility Department ID 2019-05-19 2019-05-19 [facility] [id number] 15:10:00 23:59:00 [facility]counter [facility] [id number] Surgical 4.2.7.2.686 Specialti [id number] es [address] [place] 2019-05-19 2019-05-19 Urgent [facility] [id number] 14:24:10 16:37:26 Care [facility] [id number] Surgical 4.2.7.2.686 Specialti [id number] es [address] [place] 2019-05-19 2019-05-19 Orders Doctor REBEKA [id number] 00:00:00 00:00:00 Only Unassigned, STEWART 350.1.13.10 [facility] 4.2.7.2.686 [id number] 2019-03-01 2019-03-02 Outpatient KatherineANA MARIA prince [facility] [id number] 19:45:00 15:55:00 Tammy 60 2019-03-01 2019-03-01 Outpatient MHBL MED [id number] [facility]BL 19:45:00 19:45:00 2017-12-03 2017-12-04 Outpatient MHMISCHER MHMISCHER [id number] 09:00:00 23:59:59 00 2017-05-17 2017-05-20 Outpatient Mikal 2.16.840. 2.16.840.1 . [id number] 07:40:00 15:12:00 Bouchra [id number] [id number] 2014-05-20 2014-05-20 Outpatient NANCY Rachel [facility] [id number] 09:37:00 23:59:00 [facility] 00 Results Test Description Test Time Test Comments Results Result Comments Source CHEM PANEL 2019-03-02 201 [facility] 10:13:00 CHEM PANEL 2019-03-02 11 [facility] 10:13:00 CHEM PANEL 2019-03-02 0.89 [facility] 10:13:00 CHEM PANEL 2019-03-02 140 [facility] nn 10:13:00 CHEM PANEL 2019-03-02 3.2 [facility] 10:13:00 CHEM PANEL 2019-03-02 103 [facility] nn 10:13:00 CHEM PANEL 2019-03-02 30 [facility] 10:13:00 CHEM PANEL 2019-03-02 10.2 [facility] 10:13:00 CHEM PANEL 2019-03-02 8.8 [facility] nn 10:13:00 CHEM PANEL 2019-03-02 10:13:00 Test Item Value Reference Range Interpretation Comme nts B/C Ratio (test code = B/C Ratio) 12 1 6-25 [facility] EDZMX6346-50-29 10:13:006.4[facility]annCHEM PANEL 2019-03-02 10:13:002.6[facility]ann[facility] HLEYW6751-26-08 10:13:003.8[facility]annCHE[facility] GKQMO5527-94-77 10:13:00 Test Item Value Reference Range Interpretation Comments A/G Ratio (test code = A/G Ratio) 0.7 1 0.7-1.6 [facility]annCHEM GGWAP2140-11-52 10:13:0033[facility]ann[facility] PANEL 2019-03-02 10:13:0025[facility] UZIWF3334-60-39 10:13:03379Wenrvqac [facility]annCHE[facility] AISYH5051-15-46 10:13:000.5[facility]annCHE[facility] TUZIM0818-16-40 10:13:0071[facility] ENWSF7255-42-22 10:13:001.9[facility]annCHE[facility] VUQJB7379-55-10 10:13:002.9[facility]annCHE[facility] VEJRS8913-17-74 10:13:001.6 [facility] GegufskUDIISRDUOU7288-05-46 10:13:004.4[facility]annHEMATOLOGY 2019-03-02 10:13:004.36[facility] HwjzlsmNCDYIUUQEM9081-85-17 10:13:0013.0[facility] AowazmqSIRMDJZKEE6987-62-80 10:13:0038.6[facility] ZhohddbYAHXPDUQRB2284-42-72 10:13:0088.4[facility] HmrxojhOMEDXLKTRD4047-29-87 10:13:00 Test Item Value Reference Range Interpretation Comments MCH (test code = MCH) 29.8 pg 27.0-31.0 [facility] JqbfkrkNUGSNGLERO7001-65-81 10:13:0033.7[facility]annHEMATOLOGY 2019-03-02 10:13:0014.7[facility] YszepynLFZSBRCOQI9478-61-61 10:13:32939Fooewquy OpycmfmAYQQQDIRDN7226-23-73 10:13:008.0[facility] YplizdjMZRXNUSJGX4062-25-16 10:13:00 Test Item Value Reference Range Interpretation Comments PT (test code = PT) 17.6 s 12.0-14.7 [facility] UtkhlncCLXMQSUJMM4411-59-85 10:13:00 Test Item Value Reference Range Interpretation Comments INR (test code = INR) 1.43 1 0.85-1.17 [facility] TnjezxuJCKOXXJHKX1511-08-18 10:13:00 Test Item Value Reference Range Interpretation Comments PTT (test code = PTT) 24.4 s 22.9-35.8 [facility] AkrgmrcTKWLPLDIXX7421-74-92 10:13:0037.8[facility] HermannHEMATOLOGY 2019-03-02 10:13:0044.9[facility] OhgutpePCROQDSKXF7824-83-44 10:13:0013.1[facility] AektnuvLXNAWJKQRB4196-54-62 10:13:003.6[facility] AxpqqsyBFAUUISKJN8805-94-86 10:13:000.6[facility] CiibsrmHZUBNYFOJG8820-79-14 10:13:001.7[facility] PHCIXDZDIV6843-37-08 10:13:002.0[facility] JbmgigcDFAMZWGFST5500-59-39 10:13:000.6 [facility] ZlcwyazWYISWVGTRA3395-18-48 10:13:000.2[facility] HermannCHEM PANEL 2019-03-02 05:53:002.1[facility]annSPECIAL KVWQXSSAS7809-16-41 05:53:0014.3 [facility]CHE[facility] XJBCS2112-26-53 02:44:000.12[facility]annCHEM PANEL 2019-03-02 02:44:003.0[facility]annCHEM FAGMN4716-81-26 02:44:001.9[facility]annCHEM IQMAH5988-70-95 02:44:61611Skcxboha HermannCHEM LDHLM3368-05-22 02:44:002.5[facility] LkunnarLKKVFIAAIIFQ9759-33-56 02:44:0013.5[facility] DZVHEQSIRHAJ5196-72-35 02:44:00 Test Item Value Reference Range Interpretation Comments B/C Ratio (test code = B/C Ratio) 12 1 6-25 [facility] LjpphsxIIVQNRZPIHVP5265-87-46 02:44:004.2[facility] HermannELECTROLYTES 2019-03-02 02:44:00 Test Item Value Reference Range Interpretation Comments A/G Ratio (test code = A/G Ratio) 0.7 1 0.7-1.6 [facility] EkmtmsmSUUMQSXCCRZT1494-22-85 02:44:28214Kpedphsi HermannELECTROLYTES 2019-03-02 02:44:003.5[facility] HueqttgFGZNZOGSZRJA8489-47-74 02:44:0099[facility] NgmwzusWBOWSNYJLZQG2847-71-05 02:44:28821Dhhhofpf CodeqwnEPAXKMGQZYWC3961-23-41 02:44:0012[facility] XcliiwpHJWHOOYGTCYF0924-37-55 02:44:0029[facility] LYVTCGHERHMP9338-58-87 02:44:008.8[facility] MjhjzmbTIIGLXXLZFTR3394-98-98 02:44:002.9[facility] RwousuaVRAVSSQKNPQP2057-28-88 02:44:001.04[facility] NHVWGMBELVIT3405-95-82 02:44:0031[facility] FkjglpkQNJLGXQUXQGC9187-95-94 02:44:00 18[facility] EmmihfsTSXWZBALIBAU7959-37-82 02:44:0059[facility] HermannELECTROLYTES 2019-03-02 02:44:007.1[facility] FfujpvqHNLGSSNGRTWJ6250-43-07 02:44:94699Ufqrpbht NoyavkbFCJXQSSETYIQ8902-48-58 02:44:000.4[facility] YltqbvaOHZBIEEISN5958-85-87 02:44:005.3[facility] XjdruwaXYAGZTHFWD7014-56-98 02:44:004.68[facility] OXGJUQTWDD3105-10-99 02:44:0013.9[facility] OjctmirSYZPWHASIS0870-24-24 02:44:00 41.5[facility] EneflxtZBHUACTKPW9925-06-03 02:44:0088.8[facility] HermannHEMATOLOGY 2019-03-02 02:44:00 Test Item Value Reference Range Interpretation Comments MCH (test code = MCH) 29.7 pg 27.0-31.0 [facility] IemxqalTBBYCLLNOM9925-59-97 02:44:0033.5[facility]annHEMATOLOGY 2019-03-02 02:44:0014.6[facility] JzznlrySPICQQNXOS0582-57-67 02:44:44603Ehozfnvv OvqwbncWOUPANISHU0949-41-17 02:44:007.9[facility] XadykobOMZNPLSALS5220-10-69 02:44:00 Test Item Value Reference Range Interpretation Comments PTT (test code = PTT) 27.6 s 22.9-35.8 [facility] DkhermfYDCSQFZZYJ8308-43-41 02:44:00 Test Item Value Reference Range Interpretation Comments PT (test code = PT) 22.4 s 12.0-14.7 [facility] JfxntnlDKCIKEYACS4508-41-46 02:44:00 Test Item Value Reference Range Interpretation Comments INR (test code = INR) 1.94 1 0.85-1.17 [facility] EtswmvjBCJZDXTAKJ1284-71-78 02:44:0041.8[facility] HermannHEMATOLOGY 2019-03-02 02:44:0046.4[facility] TfnkysjPYUJIACDBO4867-98-68 02:44:009.0[facility] LbiignbKOSZTSDTRQ1810-51-41 02:44:002.3[facility] XguwcquQEQBLFZPRZ0937-15-44 02:44:000.5[facility] MbesdvrATZBXLPCKC9040-77-99 02:44:002.2[facility] WMSDNYBDJD0384-58-50 02:44:002.5[facility] WjghctiZTENMCDNIU3109-65-44 02:44:000.5 [facility] UdrgrgaFYPLLLRSMB5446-06-70 02:44:000.1[facility]- XR HIP W/PEL UNI 2+V AV5701-89-16 11:36:00 FAX: Jeet Weeks MD [phone] [place]: [address]: REG Name: TANVI CARRANZA [place] FSED : 1960 Age/S: 58/F Unit#: [id number] Loc: [place] Phys: Brittany Anaya MD Acct: [id number] Dis Date: Status: REG ER PHONE #: Exam Date: 01/06/2019 1132 FAX #: Reason: left hip pain EXAMS: CPT CODE: [id number] XR HIP W/PEL UNI 2+[place] [address] PELVIS AND LEFT HIP, 3 VIEWS: HISTORY: Left hippain. COMPARISON EXAMS: None available. FINDINGS: The hip joint spacesare preserved and no acute fractures or focal bony abnormalities identified. Enthesopathy is identified from each iliac crest. Moderate lumbosacral degenerative disc disease and osteoarthritis is noted on one of the AP views. IMPRESSION:1. No acute changes identified about the pelvis or left hip. 2. Moderate lumbosacral degenerative disc disease and osteoarthritis. 3. Chronic enthesopathy at the lateral iliac crests. 4. Limited visualization of bony detail due to body habitus. SL:01 at 1136 Reported and signed by:Shahbaz Cortes M.D. CC: Jeet Emanuel MD Technologist: RT Angela(R)(CT) Trnscrd Date/Time/By: 01/06/2019 (7642) : By: JuliocesarAJJ Orig Print D/T: S: 01/06/2019 (1311) PAGE 1 Signed ReportCARDIAC JPWHUSO2998-25-86 10:15:00 Test Item Value Reference Range Interpretation Comments CK MB Index (test code = CK MB Index) 0.9 1 <=2.5 [facility]annCARDIAC MSQDAZE5899-06-04 10:15:00<0.02[facility] CARDIAC HAFKYSS1955-63-85 10:15:000.6[facility]annCARDIAC XAICGRQ3294-22-00 10:15:0064[facility] HermannCHEM JBOFW8687-24-03 10:12:00 Test Item Value Reference Range Interpretation Comments A/G Ratio (test code = A/G Ratio) 0.7 1 0.7-1.6 [facility]annCHE[facility] IAVFE7413-54-13 10:12:00 Test Item Value Reference Range Interpretation Comments B/C Ratio (test code = B/C Ratio) 23 1 6-25 [facility] HermannCHEM LDUWW7485-60-97 10:12:004.4[facility] HermannCHEM PANEL 2017-05-18 10:12:0013.5[facility] HermannCHEM WKWJA9875-84-17 10:12:13268Uffvkcmw HermannCHEM DXNBM2624-40-37 10:12:63159Gnqridws HermannCHEM VZMZM1342-80-30 10:12:000.3[facility] HermannCHEM ZURJY1032-56-28 10:12:003.1[facility] HermannCHEM LXNWV4209-95-05 10:12:0014[facility] HermannCHEM IVQJC8036-46-33 10:12:0034 [facility]annCHEM EHEUS8811-86-06 10:12:007.5[facility] HermannCHEM PANEL 2017-05-18 10:12:008.7[facility] HermannCHEM CXPMA5868-06-81 10:12:0027[facility] HermannCHEM KHCXW6107-61-41 10:12:47912Ssixvcer HermannCHEM SETPM6710-95-66 10:12:003.5[facility] HermannCHEM SSWNU9944-30-73 10:12:60873Btnqrphz HermannCHEM WFRVT1324-15-61 10:12:000.69[facility] HermannCHEM GECDL9751-43-48 10:12:0016 [facility]annCHEM JXMMO9442-17-64 10:12:16539Sdofueuc HermannHEMATOLOGY 2017-05-18 10:12:0038.1[facility] TulzpazRESNPWTQYC5176-22-66 10:12:0086.0[facility] UkidwmdGLJVHJLZJJ5063-61-01 10:12:51742Uglqsqyy MpabinkRZLDZBTJXJ8298-89-64 10:12:007.7[facility] HpcfpirQCEWCXOKVJ8064-53-06 10:12:00 Test Item Value Reference Range Interpretation Comments MCH (test code = MCH) 28.3 pg 27.0-31.0 [facility] CtkygueFLLBWIMRIC4401-80-87 10:12:0015.6[facility] HermannHEMATOLOGY 2017-05-18 10:12:0032.9[facility] YivehcrANUERKFJWV7966-00-00 10:12:0010.9[facility] FltykfhIZUUXOAIKB6223-91-01 10:12:0012.5[facility] PrwnjsfMNQOFREJHI1318-68-15 10:12:004.42[facility] MlhbdsgWAZCOSOQIY8782-24-45 10:12:0080.0[facility] ZNRSZACPBQ7570-27-04 10:12:006.1[facility] NeedfhiPNZMQLWSOF5292-17-18 10:12:000.1 [facility] SjxknpiXOFREDBZCR0698-76-29 10:12:0013.8[facility] HermannHEMATOLOGY 2017-05-18 10:12:008.7[facility] WeixwfvHQDETOWHHJ2717-43-60 10:12:001.5[facility] FckbyoaQQJNXPTWZA0626-95-32 10:12:000.7[facility] HermannBACTERIAL - SEROLOGY 2017-05-18 00:17:00Negative (05/17/17 7:17 PM)[facility] HermannBACTERIAL - VNJKFIYW9682-62-94 22:44:00Urine *NA*(05/17/17 5:44 PM)[facility] HermannBACTERIAL - WLFUARSJ2132-15-66 22:44:00Negative (05/17/17 5:44 PM)[facility] HermannCARDIAC JOWGDRV5134-35-14 22:44:000.03[facility] HermannCARDIAC ROZASIN2131-52-25 22:44:00 262[facility] HermannCARDIAC UPNAXUR2985-53-06 22:44:002.9[facility] HermannCARDIAC PDFJKKK8578-28-86 19:33:000.04[facility] HermannCARDIAC TUIEQET5552-84-06 19:33:00 3.0[facility] HermannCARDIAC YVGDVBZ3816-30-34 19:33:05362Gdcpoynl HermannCHEM NMEBW5936-29-49 19:33:002.0[facility] HermannVIRAL - WRJHDLFK6150-89-09 16:04:00 Negative (05/17/17 11:04 AM)[facility] HermannVIRAL - BXYRKDSZ4882-80-21 16:04:00 Negative (05/17/17 11:04 AM)[facility]annCARDIAC QEKYOAU9766-33-37 13:04:22247 [facility]annCHEM ZTBYH5792-84-59 13:04:23305Iqpcnxgy HermannCHEM PANEL 2017-05-17 13:04:002.0[facility] HermannCHEM WXHEL1665-98-97 13:04:004.3[facility] HermannCHEM AYGKT0073-90-62 13:04:00 Test Item Value Reference Range Interpretation Comments A/G Ratio (test code = A/G Ratio) 0.7 1 0.7-1.6 [facility]annCHEM BXUVV4120-86-42 13:04:0012.5[facility] HermannCHEM PANEL 2017-05-17 13:04:00 Test Item Value Reference Range Interpretation Comments B/C Ratio (test code = B/C Ratio) 18 1 6-25 [facility]annCHEM CQYSY0376-82-07 13:04:71162Bpeyopjw HermannCHEM PANEL 2017-05-17 13:04:000.3[facility] HermannCHEM QLYKN4379-57-09 13:04:007.4[facility] HermannCHEM JHNHD7313-01-04 13:04:0044[facility]annCHEM BEJSZ7259-99-29 13:04:003.1[facility]annCHEM EZFNC3423-45-58 13:04:61884Qfguxldr HermannCHEM KBLNR1990-91-09 13:04:0042[facility]annCHEM YRVWM9045-02-64 13:04:0028 [facility]annCHE[facility] BPAJB6883-74-77 13:04:008.5[facility] HermannCHEM PANEL 2017-05-17 13:04:003.5[facility] HermannCHEM PCSGR7400-01-26 13:04:87902Xxyfsool HermannCHEM QRAUF5767-50-39 13:04:00887Kyudgqob HermannCHEM UNCMZ3036-22-91 13:04:000.71[facility] HermannCHEM QJTHU3954-77-45 13:04:0013[facility] HermannCHEM NBRAE2203-59-93 13:04:36943Pngqvwnd MtbbnejRQYQGRJVGR3256-37-99 13:04:001.19 [facility] EkwdsfhVENGQECUQG7845-28-89 13:04:00 Test Item Value Reference Range Interpretation Comments PTT (test code = PTT) 25.2 s 22.9-35.8 [facility] TagbjzxQBVAYSHWHB7605-96-02 13:04:00 Test Item Value Reference Range Interpretation Comments INR (test code = INR) 0.96 1 0.85-1.17 [facility] MwocmwhUBBBWNABNS3152-17-95 13:04:00 Test Item Value Reference Range Interpretation Comments PT (test code = PT) 12.8 s 12.0-14.7 [facility] YpfdvunUKXFMNBPXH2037-37-41 13:04:0012.7[facility] HermannHEMATOLOGY 2017-05-17 13:04:0039.3[facility] BqmsigrWQIHOVUZDL8923-64-53 13:04:0085.8[facility] OqpkozbNPPBFNTGZP0054-79-77 13:04:007.8[facility] ZthspkjRCZGQOEBLN8407-55-39 13:04:004.57[facility] AhhdspiERZLNBQGNA8534-39-16 13:04:0032.3[facility] YSTGABVQKT2376-95-31 13:04:0016.0[facility] CniwafyPDRSSOFLAA9128-74-78 13:04:00 Test Item Value Reference Range Interpretation Comments MCH (test code = MCH) 27.7 pg 27.0-31.0 [facility] PawghjgUPNLXBGVUR4090-17-65 13:04:007.8[facility] HermannHEMATOLOGY 2017-05-17 13:04:35597Arvdklvd BygremsCKGNDJRLEU4499-05-11 13:04:0067.3[facility] NdhqiaaKDETJHTPKJ5336-63-16 13:04:000.4[facility] ZcchtknULUGMLZXIT3815-01-28 13:04:002.1[facility] RtdcqtyRZHAQOQEAB7148-97-74 13:04:0023.8[facility] SZOPEZMJQV3070-18-38 13:04:006.4[facility] XwrlzxlCQNWBSKBZZ8879-16-82 13:04:000.5 [facility] TfjumipHBMLSOSUYH7741-19-76 13:04:000.2[facility] HermannHEMATOLOGY 2017-05-17 13:04:005.2[facility] FjyiepoLZICFAMDZV0260-24-63 13:04:001.9[facility]
--- NOTE | 2019-11-15 14:35 | RAD REPORT ---
EXAM DESCRIPTION: US - Extremity Venous Uni Ltd - 11/15/2019 1:54 pm CLINICAL HISTORY: Pain;Swelling COMPARISON: March 2019 TECHNIQUE: Real-time sonographic evaluation of the right lower extremity deep venous systems was per formed. FINDINGS: Normal compressibility, flow augmentation, phasic flow and spontaneous flow are identified in the right lower extremity common femoral, superficial femoral, popliteal and posterior tibial vei ns. No acute intraluminal filling defects seen. Patient continues to have a minimal amount of echogen ic old thrombus in the right popliteal vein. Vessel shows good compression. IMPRESSION: No acute DVT in the right lower extremity. Minimal, stable old thrombus in the right popliteal vein.
--- NOTE | 2019-11-15 15:43 | ER ---
Nurse's Notes [facility] Name: Dori Cotter Age: 59 yrs Sex: Female : 1960 Arrival Date: 11/15/2019 Time: 12:25 Bed 17 Private MD: Jeet Emanuel T Diagnosis: Sprain of other specified parts of right knee Presentation: 11/14 12:40 Chief complaint: Patient states: Severe pain on R leg, runs from R thigh down to R ca1 toes, pain is more on R knee, started last night. Reports R knee is swollen. History of blood clots on the R leg. Pt on blood thinners for DVT. Coronavirus screen: Client denies travel out of the [place] in the last 14 days. At this time, the client does not indicate any symptoms associated with coronavirus-19. Ebola Screen: Patient negative for fever greater than or equal to 101.5 degrees Fahrenheit, and additional compatible Ebola Virus Disease symptoms Patient denies exposure to infectious person. Patient denies travel to an Ebola-affected area in the 21 days before illness onset. No symptoms or risks identified at this time. Initial Sepsis Screen: Does the patient meet any 2 criteria? No. Patient's initial sepsis screen is negative. Does the patient have a suspected source of infection? No. Patient's initial sepsis screen is negative. Risk Assessment: Do you want to hurt yourself or someone else? Patient reports no desire to harm self or others. Onset of symptoms was November 15, 2019. 12:40 Method Of Arrival: Wheelchair ca1 12:40 Acuity: RANDI 3 ca1 Historical: - Allergies: 12:43 Bactrim; ca1 12:43 PENICILLINS; ca1 - Home Meds: 12:43 Xarelto 20 mg Oral tab 1 tab once daily [Active]; hydrochlorothiazide 25 mg Oral tab 1 ca1 tab once daily [Active]; Protonix 40 mg Oral TbEC 1 tab once daily [Active]; valsartan 160 mg Oral tab 1 tab once daily [Active]; - PMHx: 12:43 Diabetes - NIDDM; dvt- rt leg; GERD; High Cholesterol; Hypertension; ca1 - PSHx: 12:43 Skin Graft; Tubal ligation; Knee surgery; Hysterectomy; ca1 - Immunization history:: Adult Immunizations up to date. - Social history:: Smoking status: Patient denies any tobacco usage or history of. Screenin:20 Abuse screen: Denies threats or abuse. Denies injuries from another. Nutritional jr10 screening: No deficits noted. Tuberculosis screening: No symptoms or risk factors identified. Fall Risk None identified. Assessment: 13:59 Reassessment: pt back to room from US at this time. jr10 14:14 General: Appears uncomfortable, Behavior is calm, cooperative, appropriate for age. jr10 Pain: Complains of pain in right leg Pain currently is 7 out of 10 on a pain scale. Quality of pain is described as aching, sharp, shooting, Pain began gradually, yesterday Is continuous, Alleviated by nothing. Aggravated by increased activity, weight bearing, Noted to be moaning. Neuro: No deficits noted. Cardiovascular: No deficits noted. Respiratory: No deficits noted. Airway is patent Respiratory effort is even, unlabored, Respiratory pattern is regular, symmetrical, Denies shortness of breath. GI: No deficits noted. No signs and/or symptoms were reported involving the gastrointestinal system. : No deficits noted. No signs and/or symptoms were reported regarding the genitourinary system. EENT: No deficits noted. No signs and/or symptoms were reported regarding the EENT system. Derm: No deficits noted. No signs and/or symptoms reported regarding the dermatologic system. Musculoskeletal: Circulation, motion, and sensation intact. Range of motion: intact in all extremities, Swelling absent Tenderness present in right leg Reports pt states "I missed a step yesterday when I was walking down the stairs and that's when my leg started hurting me"; pt denies trip and fall or trauma to affected extremity. Pt does report hx of DVT, states "I was supposed to go get a venous US of my leg yesterday and wasn't able to go, my doctor wants me to go every 6 months". 14:33 Reassessment: xray at bedside. jr10 Vital Signs: 12:40 BP 175 / 84; Pulse 79; Resp 16 S; Temp 97.2(TE); Pulse Ox 98% on R/A; Weight 113.4 kg ca1 (R); Height 5 ft. 2 in. (157.48 cm) (R); Pain 10/10; 14:13 BP 158 / 75; Pulse 65; Resp 18; Pulse Ox 100% on R/A; Pain 7/10; jr10 16:32 BP 167 / 86; Pulse 66; Resp 17; Pulse Ox 97% on R/A; jr10 12:40 Body Mass Index 45.73 (113.40 kg, 157.48 cm) ca1 ED Course: 12:25 Patient arrived in ED. ag5 12:25 Jeet Emanuel MD is Private Physician. ag5 12:43 Triage completed. ca1 12:43 Arm band placed on right wrist. ca1 13:29 Michael Tubbs PA is PHCP. jr8 13:29 Hebert Fox MD is Attending Physician. jr8 13:55 Extremity Venous Uni Ltd US In Process Unspecified. EDMS 13:59 Michelle Dior, RN is Primary Nurse. jr10 14:21 Patient has correct armband on for positive identification. Bed in low position. Call jr10 light in reach. Side rails up X2. Pulse ox on. NIBP on. 14:21 No provider procedures requiring assistance completed. jr10 15:12 Patient did not have IV access during this emergency room visit. jr10 15:42 Fran Logan MD is Referral Physician. jr8 16:00 XRAY Knee RIGHT 3 view In Process Unspecified. EDMS Administered Medications: 16:32 Drug: Mooers (7.5 mg-325 mg) 1 tabs Route: PO; jr10 Outcome: 15:42 Discharge ordered by . jr8 16:32 Discharged to home via wheelchair. jr10 16:32 Condition: stable 16:32 Discharge instructions given to patient, Instructed on discharge instructions, follow up and referral plans. Demonstrated understanding of instructions, follow-up care, medications, Prescriptions given X 1. 16:33 Patient left the ED. jr10 Signatures: Dispatcher [employer] EDMS Michael Tubbs PA PA jr8 Emelyn Cason RN RN ca1 Soledad Uribe ag5 Michelle Dior, PATRICK RN jr10 Corrections: (The following items were deleted from the chart) 16:33 14:14 General: Appears uncomfortable, jr10 jr10
--- NOTE | 2019-11-15 15:43 | EDPHYS ---
Physician Documentation [facility] Name: Dori Cotter Age: 59 yrs Sex: Female : 1960 Arrival Date: 11/15/2019 Time: 12:25 Bed 17 Private MD: Jeet Emanuel T ED Physician Hebert Fox HPI: 11/14 14:58 This 59 yrs old Black Female presents to ER via Wheelchair with complaints of Knee jr8 Pain, Leg Pain. 14:58 Pt presents to ED c/o R knee pain since yesterday. The pt states that she tripped and jr8 her R knee "buckled" underneath her. Denies falling or any blunt trauma to the knee. States that her knee has been swollen since yesterday. States she has a DVT in her R leg that she has been taking Xarelto for over the past 2 years. Denies CP, SOB, fever, dizziness, or any other symptoms.. Historical: - Allergies: 12:43 Bactrim; ca1 12:43 PENICILLINS; ca1 - Home Meds: 12:43 Xarelto 20 mg Oral tab 1 tab once daily [Active]; hydrochlorothiazide 25 mg Oral tab 1 ca1 tab once daily [Active]; Protonix 40 mg Oral TbEC 1 tab once daily [Active]; valsartan 160 mg Oral tab 1 tab once daily [Active]; - PMHx: 12:43 Diabetes - NIDDM; dvt- rt leg; GERD; High Cholesterol; Hypertension; ca1 - PSHx: 12:43 Skin Graft; Tubal ligation; Knee surgery; Hysterectomy; ca1 - Immunization history:: Adult Immunizations up to date. - Social history:: Smoking status: Patient denies any tobacco usage or history of. ROS: 15:24 Eyes: Negative for injury, pain, redness, and discharge, ENT: Negative for injury, jr8 pain, and discharge, Neck: Negative for injury, pain, and swelling, Cardiovascular: Negative for chest pain, palpitations, and edema, Respiratory: Negative for shortness of breath, cough, wheezing, and pleuritic chest pain, Abdomen/GI: Negative for abdominal pain, nausea, vomiting, diarrhea, and constipation, Back: Negative for injury and pain, Skin: Negative for injury, rash, and discoloration, Neuro: Negative for headache, weakness, numbness, tingling, and seizure. 15:24 MS/extremity: Positive for pain, swelling, tenderness, of the right leg. Exam: 15:24 Eyes: Pupils equal round and reactive to light, extra-ocular motions intact. Lids and jr8 lashes normal. Conjunctiva and sclera are non-icteric and not injected. Cornea within normal limits. Periorbital areas with no swelling, redness, or edema. ENT: Nares patent. No nasal discharge, no septal abnormalities noted. Tympanic membranes are normal and external auditory canals are clear. Oropharynx with no redness, swelling, or masses, exudates, or evidence of obstruction, uvula midline. Mucous membranes moist. Neck: Trachea midline, no thyromegaly or masses palpated, and no cervical lymphadenopathy. Supple, full range of motion without nuchal rigidity, or vertebral point tenderness. No Meningismus. Cardiovascular: Regular rate and rhythm with a normal S1 and S2. No gallops, murmurs, or rubs. Normal PMI, no JVD. No pulse deficits. Respiratory: Lungs have equal breath sounds bilaterally, clear to auscultation and percussion. No rales, rhonchi or wheezes noted. No increased work of breathing, no retractions or nasal flaring. Abdomen/GI: Soft, non-tender, with normal bowel sounds. No distension or tympany. No guarding or rebound. No evidence of tenderness throughout. Back: No spinal tenderness. No costovertebral tenderness. Full range of motion. Skin: Warm, dry with normal turgor. Normal color with no rashes, no lesions, and no evidence of cellulitis. Neuro: Awake and alert, GCS 15, oriented to person, place, time, and situation. Cranial nerves II-XII grossly intact. Motor strength 5/5 in all extremities. Sensory grossly intact. Cerebellar exam normal. Normal gait. 15:24 Musculoskeletal/extremity: Extremities: grossly normal except: noted in the right knee: pain, swelling, tenderness, ROM: intact in all extremities, limited active range of motion, limited passive range of motion, limited active range of motion due to pain, limited passive range of motion due to pain, Circulation is intact in all extremities. Sensation intact. Vital Signs: 12:40 BP 175 / 84; Pulse 79; Resp 16 S; Temp 97.2(TE); Pulse Ox 98% on R/A; Weight 113.4 kg ca1 (R); Height 5 ft. 2 in. (157.48 cm) (R); Pain 10/10; 14:13 BP 158 / 75; Pulse 65; Resp 18; Pulse Ox 100% on R/A; Pain 7/10; jr10 16:32 BP 167 / 86; Pulse 66; Resp 17; Pulse Ox 97% on R/A; jr10 12:40 Body Mass Index 45.73 (113.40 kg, 157.48 cm) ca1 Procedures: 15:41 Crutch training provided to patient and/or family. Return demonstration given. jr8 15:43 Splinting: Splint applied to right leg using richard wrap, applied by nurse. Examined by jr8 me, post splint application: neurovascular intact, 2+ distal pulses palpable, brisk capillary refill noted. MDM: 13:32 Patient medically screened. jr8 15:41 Data reviewed: vital signs, nurses notes, radiologic studies, plain films, ultrasound. jr8 Data interpreted: Pulse oximetry: on room air is 100 %. Interpretation: normal. Counseling: I had a detailed discussion with the patient and/or guardian regarding: the historical points, exam findings, and any diagnostic results supporting the discharge/admit diagnosis, radiology results, the need for outpatient follow up, a orthopedic surgeon, to return to the emergency department if symptoms worsen or persist or if there are any questions or concerns that arise at home. 11/14 12:45 Order name: Extremity Venous Uni Ltd US; Complete Time: 14:40 ca1 11/14 14:16 Order name: XRAY Knee RIGHT 3 view; Complete Time: 16:22 jr8 11/14 15:42 Order name: Richard Wrap; Complete Time: 16:11 jr8 Administered Medications: 16:32 Drug: Raymond (7.5 mg-325 mg) 1 tabs Route: PO; jr10 Disposition: 17:50 Co-signature as Attending Physician, Hebert Fox MD. rn Disposition: 11/15/19 15:42 Discharged to Home. Impression: Sprain of other specified parts of right knee. - Condition is Stable. - Discharge Instructions: Knee Sprain. - Prescriptions for Tramadol 50 mg Oral Tablet - take 1 tablet by ORAL route every 8 hours as needed; 12 tablet. - Medication Reconciliation Form, Thank You Letter, Antibiotic Education, Prescription Opioid Use form. - Follow up: Fran Logan MD; When: 2 - 3 days; Reason: Recheck today's complaints, Continuance of care, Re-evaluation by your physician. - Problem is new. - Symptoms have improved. Signatures: Dispatcher [employer] EDMS Hebert Fox MD MD rn Roszak, Josh, PA PA jr8 Emelyn Cason RN RN ca1 Michelle Dior RN RN jr10 Corrections: (The following items were deleted from the chart) 16:11 15:42 Crutches ordered. jr8 jr10 16:33 15:42 11/15/2019 15:42 Discharged to Home. Impression: Sprain of other specified parts jr10 of right knee. Condition is Stable. Forms are Medication Reconciliation Form, Thank You Letter, Antibiotic Education, Prescription Opioid Use. Follow up: Fran Logan; When: 2 - 3 days; Reason: Recheck today's complaints, Continuance of care, Re-evaluation by your physician. Problem is new. Symptoms have improved. jr8
--- NOTE | 2019-11-15 16:19 | RAD REPORT ---
EXAM DESCRIPTION: RAD - Knee Right 3 View - 11/15/2019 4:01 pm CLINICAL HISTORY: PAIN COMPARISON: No comparisons FINDINGS: No fracture, dislocation or periosteal reaction.Small joint effusion present. Lateral comp artment narrowing seen with marginal spurs. Large medial compartment spurs are present with tibial sp ine spurring. Large spurs project from the articular margins of the patella along with spurring at th e patella tendon and quadriceps tendon attachments. No foreign body or other soft tissue abnormality. IMPRESSION: Advanced knee joint degenerative change without acute finding seen. Small joint effusion. Clinical concerns for internal derangement or occult bony injury could be further assessed with MR im aging.
[2019-11-15] MEDS ORDERED: HYDROCODONE/APAP 7.5/325 MG TAB ONE (16:25)
[2019-11-15 16:45] VITALS: TEMP 97.2
[2019-11-15 16:48] VITALS: BP 167/86; O2SAT 97
== END 2019-11-15 16:33 | disposition home or self-care (01) ==
LOC: ER 12:23
DX: S83.8X1A Sprain of other specified parts of right knee, initial encounter (principal); X58.XXXA Exposure to other specified factors, initial encounter; Y93.01 Activity, walking, marching and hiking; Y92.9 Unspecified place or not applicable; I10 Essential (primary) hypertension; E11.9 Type 2 diabetes mellitus without complications; E78.00 Pure hypercholesterolemia, unspecified; Z79.01 Long term (current) use of anticoagulants; Z88.0 Allergy status to penicillin; Z88.1 Allergy status to other antibiotic agents; Z86.718 Personal history of other venous thrombosis and embolism
CPT/HCPCS: 93971; 99284